=== PATIENT | female | born 1950 | race Hispanic/Latino ===

== ENCOUNTER 2016-09-11 15:33 | Inpatient (IN) | payer OTHER ==
[~2016-09-11] VITALS: Ht 165.1 cm; Wt 110.2 kg
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
--- NOTE | 2016-09-11 16:07 | NUR ---
MED STUDENT AT BEDSIDE FOR EVAL
--- NOTE | 2016-09-11 16:44 | NUR ---
URINE TRIO SENT TO LAB
--- NOTE | 2016-09-11 16:50 | ED PSYCHIATRIC COMPLAINT ---
History of Present Illness General Chief Complaint: Psychiatric Related Complaint Stated Complaint: SI Source: patient, old records Exam Limitations: no limitations Vital Signs & Intake/Output Vital Signs & Intake/Output Vital Signs Date Time Temp Pulse Resp B/P Pulse O2 O2 Flow FiO2 Ox Delivery Rate 09/11 1848 98.6 89 148/90 99 09/11 1724 Room Air 09/11 1556 96.6 72 16 150/90 93 Room Air Triage Note: PT SENT FROM PSYCHIATRIST'S OFFICE FOR SI. PT DENIES PLAN BUT REPORTS THOUGHTS. PT LOST 2 SONS IN 6 MONTH SPAN AND IS MOURNING. PT DENIES HI Triage Nurses Notes Reviewed? yes Onset: Just prior to arrival Duration: week(s):, constant, continues in ED Timing: recent history Severity: severe Associated Symptoms: impaired concentration, insomnia, suicidal ideation LMP (ages 10-50): post menopausal : No Patient currently breastfeeds: No HPI: Patient referred by outpatient clinician for hallucination of seeing children in her home and thoughts of wanting to harm herself. She denies fever chills nausea vomiting diarrhea abdominal pain chest pain shortness breath headache dysuria rash bleeding homicidal ideation. Past History Travel History Traveled to [place] past 21 day No Medical History Any Pertinent Medical History? see below for history Respiratory: asthma Endocrine: diabetes Surgical History Surgical History: non-contributory Psychosocial History What is your primary language Canadian Tobacco Use: Current Not Daily Family History Hx Contributory? No Review of Systems Review of Systems Constitutional: Reports: no symptoms. EENTM: Reports: no symptoms. Respiratory: Reports: no symptoms. Cardiovascular: Reports: no symptoms. GI: Reports: no symptoms. Genitourinary: Reports: no symptoms. Musculoskeletal: Reports: no symptoms. Skin: Reports: no symptoms. Neurological/Psychological: Reports: see HPI, confusion, depressed, emotional problems. Hematologic/Endocrine: Reports: no symptoms. Immunologic/Allergic: Reports: no symptoms. All Other Systems: Reviewed and Negative Physical Exam Physical Exam General Appearance: well developed/nourished, alert, awake, anxious, mild distress Head: atraumatic, normal appearance Eyes: Bilateral: normal appearance, PERRL, EOMI. Ears, Nose, Throat: normal pharynx, normal ENT inspection, hearing grossly normal Neck: normal inspection, supple Respiratory: normal breath sounds Cardiovascular: irregularly irregular, norml femoral pulses equa Gastrointestinal: soft, non-tender Extremities: normal range of motion Neurological/Psychiatric: no motor/sensory deficits, awake, alert, anxious, shower room attendant II-XII nml as tested, depressed affect, oriented x 3 Appearance/Memory/Insight: impaired insight Behavoir/Eye Contact/Speech: cooperative, normal speech Thoughts/Hallucinations: visual hallucinations Skin: intact, normal color, warm/dry SAD PERSONS SAD PERSONS Response Value Age <19 or >45 years? yes 1 Depression/Hopelessness? yes 2 Previous Attempts/Psych Care yes 1 Rational Thinking Loss? yes 2 Social Support? has support 0 Stated Future Intent? yes 2 Total 8 SAD PERSONS Done? yes Progress Differential Diagnosis: drug intoxication, drug overdose, drug withdrawal, electrolyte abnormality, hypoglycemia Plan of Care: Orders Procedure Date/time Status Regular Diet 09/12 B Active Admit to inpatient psych 09/11 1904 Active PROTHROMBIN TIME 09/11 1719 Active Continuous Observation Monitor 09/11 1637 Active URINE DRUG SCREEN FOR ER ONLY 09/11 1637 Complete ETHANOL 09/11 1637 Complete COMPREHENSIVE METABOLIC PANEL 09/11 1637 Complete CBC WITHOUT DIFFERENTIAL 09/11 1637 Complete ED CRISIS PSYCH CONSULT 09/11 1637 Active Laboratory Tests 09/11/16 1644: Anion Gap 14, Estimated GFR 45 L, BUN/Creatinine Ratio 18.3, Glucose 226 H, Calcium 9.1, Total Bilirubin 0.7, AST 20, ALT 29, Alkaline Phosphatase 66, Total Protein 7.1, Albumin 4.1, Globulin 3.0, Albumin/Globulin Ratio 1.4, CBC w Diff NO MAN DIFF REQ, RBC 4.34, MCV 84.9, MCH 28.5, RDW 15.0 H, MPV 9.1, Gran % 49.5 , Lymphocytes % 39.0, Monocytes % 7.9, Eosinophils % 2.7, Basophils % 0.9, Absolute Granulocytes 4.3, Absolute Lymphocytes 3.4, Absolute Monocytes 0.7 H, Absolute Eosinophils 0.2, Absolute Basophils 0.1, PUBS MCHC 33.5, Serum Alcohol < 10.0 09/11/16 1641: Urine Opiates Screen 714.00, Methadone Screen 96, Barbiturate Screen < 60, Ur Phencyclidine Scrn < 6.00, Amphetamines Screen < 100, U Benzodiazepines Scrn > 800 H, Urine Cocaine Screen < 50, Urine Cannabis Screen < 5.00 Departure Departure Time of Disposition: 1917 Disposition: STILL A PATIENT Condition: Stable Clinical Impression Primary Impression: Depression, major, recurrent, severe with psychosis Referrals: BROOKLYNN WALLACE (PCP/Family) Departure Forms: Customer Survey General Discharge Information Psych Admission Note Psychiatric Admission: I have seen and evaluated JAYESH DELATORRE. I have also reviewed all the pertinent lab results and diagnostic results. JAYESH DELATORRE will be admitted to our inpatient Psychiatric unit for treatment and care.
--- NOTE | 2016-09-11 16:52 | NUR ---
LABS SENT (SST, LAV)
[2016-09-11 16:54] LABS: ABSOLUTE BASOPHIL COUNT 0.1 /CUMM (0.0-0.2); ABSOLUTE EOSINOPHIL COUNT 0.2 /CUMM (0.0-0.7); ABSOLUTE GRANULOCYTE CT 4.3 /CUMM (1.4-6.5); ABSOLUTE LYMPH COUNT 3.4 /CUMM (1.2-3.4); ABSOLUTE MONOCYTE COUNT 0.7 /CUMM (0.10-0.60); BASOPHIL % 0.9 % (0.0-2.0); EOSINOPHIL % 2.7 % (0-5); GRANULOCYTE % 49.5 % (42.2-75.2); HEMATOCRIT 36.8 % (37-47); MEAN CORPUSCULAR HGB 28.5 PG (27.0-31.0); MEAN CORPUSCULAR HGB CONC 33.5 G/DL (33.0-37.0); MEAN CORPUSCULAR VOLUME 84.9 FL (81.0-99.0); MEAN PLATELET VOLUME 9.1 FL (7.4-10.4); PLATELET COUNT 250 /CUMM (130-400); RED BLOOD CELL CT 4.34 /CUMM (4.20-5.40); WHITE BLOOD CELL COUNT 8.7 /CUMM (4.8-10.8)
--- NOTE | 2016-09-11 17:09 | NUR ---
1 MEDICATIONS BAG TO PHARMACY
--- NOTE | 2016-09-11 17:15 | NUR ---
PT MOVED FROM BOSE E TO ROOM 13
--- NOTE | 2016-09-11 17:27 | NUR ---
PT HAS 1 VALUABLE BAG IN [facility]
--- NOTE | 2016-09-11 18:30 | NUR ---
CRISIS AT BEDSIDE FOR EVAL
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
[2016-09-11] MEDS ORDERED: GLUCOTROL XL5 M1 PO (19:39)
[2016-09-11] MEDS ORDERED: LYRICA75 M1 PO (19:39)
[2016-09-11] MEDS ORDERED: DILTIAZEM 24HR240 MG PO (19:39)
[2016-09-11] MEDS ORDERED: ADVAIR 500-501 EACH INH (19:40)
[2016-09-11] MEDS ORDERED: LINZESS145 MC1 PO (19:40)
[2016-09-11] MEDS ORDERED: LISINOPRIL2.5 M1 PO (19:40)
[2016-09-11] MEDS ORDERED: PROAIR HFA8.5 GM INH (19:40)
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
[2016-09-11] MEDS ORDERED: LEXAPRO20 M1 PO (19:41)
[2016-09-11] MEDS ORDERED: FOSAMAX70 M1 PO (19:41)
[2016-09-11] MEDS ORDERED: ZOCOR20 M1 PO (19:41)
[2016-09-11] MEDS ORDERED: VITAMIN D250000 UNIT PO (19:41)
--- NOTE | 2016-09-11 19:41 | NUR ---
BLUE TOP SENT TO LAB FOR TESTING
[2016-09-11] MEDS ORDERED: SINGULAIR10 M1 PO (19:42)
[2016-09-11] MEDS ORDERED: PREDNISONE20 M1 PO (19:42)
[2016-09-11] MEDS ORDERED: LASIX40 M1 PO (19:42)
[2016-09-11] MEDS ORDERED: COUMADIN2 M1 PO (19:42)
[2016-09-11] MEDS ORDERED: PROTONIX40 M3 PO (19:43)
[2016-09-11] MEDS ORDERED: SYNTHROID50 MCG PO (19:43)
[2016-09-11] MEDS ORDERED: ALBUTEROL2.5 MG/0.5 INH/SOL (19:44)
[2016-09-11] MEDS ORDERED: XANAX2 M1 PO (19:44)
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
[2016-09-11] MEDS ORDERED: OXYCONTIN20 M1 PO (19:45)
[2016-09-11] MEDS ORDERED: RISPERDAL0.25 M1 PO (19:45)
[2016-09-11] MEDS ORDERED: NOVOLOG FL100 UNIT/1 SQ (19:45)
[2016-09-11] MEDS ORDERED: FEOSOL45 M1 PO (19:46)
[2016-09-11] MEDS ORDERED: LANTUS SOL100 UNIT/1 SC (19:46)
[2016-09-11] MEDS ORDERED: SYNTHROID200 MCG PO (19:47)
[2016-09-11] MEDS ORDERED: OXYCODONE HCL5 M1 PO (19:47)
[2016-09-11 19:51] LABS: PT 17.7 SEC (9.4-12.5)
--- NOTE | 2016-09-11 23:56 | History & Physical ---
General Information and HPI MD Statement: I have seen and personally examined JAYESH DELATORRE and documented this H&P. The patient is a 65 year old F who presented with a patient stated chief complaint of [medical management]. Source of Information: patient Exam Limitations: no limitations History of Present Illness: Chief complaint: depression and suicidal ideation 65-year-old female with PMHx off HTN, DM on insulin, asthma on prednisone, hypothyroidism, anxiety/depression, A. fib, osteoporosis was sent from psychiatrist office for suicidal ideation, hallucinations(patient seeing her children). Patient lost her 3 young sons recently with various causes. She feels hopeless about whole situation. While evaluating medical problems and medications, patient stated that this is all futile, she did not want to outlive my children. Patient is on warfarin for A. fib, 2 weeks back her INR was more than 3 so the dose of warfarin was titrated. Earlier she used to take 2 mg warfarin 4 times a week and 4 mg warfarin 3 times a week, which was changed to 2 mg warfarin 5 times a week and 4 mg warfarin 2 times a week. Her blood pressure had been controlled at home and at frequent doctor's visit. For diabetes, she takes 15 units Lantus in morning and 10 units Lantus in the evening, 6 units aspart insulin pre-meal, checks blood sugar with every meal. She states that lately her blood sugar had been in 300s, when she is feeling stressed and anxious. Her asthma is prednisone dependent, if she did does not take prednisone she ends up in hospital. Compliant with her inhalers. She had history of lung collapse 25 years back, she was in coma for 2 weeks according to her. Then again she starts crying mentioning that why she didn't at that time, why did she had to see of her own children. She follows up with bowl topper, trolley operator, lens grinding machine operator and her PCP. PCP manages her warfarin. Patient denies any SOB, chest pain, palpitations, cough or expectoration, nausea , diarrhea, headaches, dizziness, urinary symptoms. She gets leg swellings on and off, her recent visit with bowl topper was 4 days back, she states that she was never given a diagnosis of CHF. Allergies/Medications Allergies: Coded Allergies: amoxicillin (From AUGMENTIN) (Severe, throat chocking 09/12/16) clavulanic acid (From AUGMENTIN) (Severe, throat chocking 09/12/16) Home Med list Albuterol Sulfate (Proair Hfa) 90 MCG HFA.AER.AD 2 PUF INH Q4-6 PRN PRN ASTHMA (Reported) Albuterol Sulfate 2.5 MG/0.5 ML VIAL.NEB 1 Vial INH/NISH Q4 PRN ASTHMA ( Reported) Alendronate Sodium (Fosamax) 70 MG TABLET 1 TAB PO QW OSTEOPOROSIS (Reported) in the morning, at least 30 minutes before the first food, beverage, or medication of the day Alprazolam (Xanax) 2 MG TABLET 1 TAB PO QIDPRN ANXIETY (Reported) Diltiazem HCl (Diltiazem 24HR ER) 240 MG CAP.ER.24H 1 CAP PO DAILY CARDIAC ( Reported) Ergocalciferol (Vitamin D2) (Vitamin D2) 50,000 UNIT CAPSULE 1 CAP PO QW SUPPLEMENT (Reported) Escitalopram Oxalate (Lexapro) 20 MG TABLET 1 TAB PO DAILY MENTAL HEALTH ( Reported) Fluticasone/Salmeterol (Advair 500-50 Diskus) 500 MCG-50 MCG/DOSE BLST.W.DEV 1 PUF INH BID ASTHMA (Reported) Furosemide (Lasix) 40 MG TABLET 1 TAB PO DAILY CARDIAC (Reported) Glipizide (Glucotrol XL) 5 MG TAB.ER.24 1 TAB PO BID DIABETES (Reported) Insulin Aspart, Recombinant (Novolog Flexpen) 100 UNIT/ML INSULN.PEN 6 UNITS SQ QAC DIABETES (Reported) Insulin Glargine,Hum.rec.anlog (Lantus Solostar) 100 UNIT/ML (3 ML) INSULN.PEN 15 UNIT SC DAILY DIABETES (Reported) Iron,Carbonyl (Feosol) (Unknown Strength) TABLET (Unknown Dose) DAILY SUPPLEMENT (Reported) Levothyroxine Sodium (Synthroid) 200 MCG TABLET 250 MG PO DAILY THYROID ( Reported) Linaclotide (Linzess) 145 MCG CAPSULE 1 CAP PO DAILY CONSTIPATION (Reported) Lisinopril 5 MG TABLET 1 TAB PO DAILY CARDIAC (Reported) Montelukast Sodium (Singulair) 10 MG TABLET 1 TAB PO DAILY ASTHMA (Reported) Oxycodone HCl 5 MG TABLET 20 MG PO Q6H PAIN (Reported) Pantoprazole Sodium (Protonix) 40 MG TABLET.DR 1 TAB PO DAILY STOMACH ( Reported) Prednisone 5 MG TABLET 15 MG PO DAILY ASTHMA (Reported) Pregabalin (Lyrica) 75 MG CAPSULE 1 CAP PO TID PAIN (Reported) Risperidone (Risperdal) (Unknown Strength) TABLET (Unknown Dose) PO QPM SLEEP (Reported) Simvastatin (Zocor*) 20 MG TABLET 1 TAB PO QPM HPL (Reported) Warfarin Sodium (Coumadin) 2 MG TABLET 1 TAB PO DAILY CARDIAC (Reported) Compliance With Home Meds: GOOD Past History Travel History Traveled to [place] past 21 day No Medical History Neurological: NONE EENT: NONE, allergies Cardiovascular: AFIB Respiratory: asthma Gastrointestinal: constipation, GERD Hepatic: NONE Renal: NONE, chronic kidney disease Musculoskeletal: chronic back pain, osteoporosis Psychiatric: anxiety, depression Endocrine: diabetes, hypothyroidism Blood Disorders: anemia Cancer(s): NONE SUMMER 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 Home Smoking Status: Smoker Current Stat [facility] ETOH Use: denies use Illicit Drug Use: denies illicit drug use Living Will? unknown Power of Residential Building Inspector/HCP? unknown Functional Ability ADLs Independent: dressing, eating, toileting, bathing. Ambulation: independent IADLs Independent: shopping, housework, finances, food prep, telephone, transportation , medication admin. Review of Systems Review of Systems Constitutional: Reports: no symptoms. EENTM: Reports: no symptoms. Cardiovascular: Reports: no symptoms. Respiratory: Reports: no symptoms. GI: Reports: no symptoms, constipation. Genitourinary: Reports: no symptoms. Musculoskeletal: Reports: joint pain. Skin: Reports: no symptoms. Neurological/Psychological: Reports: depressed. Hematologic/Endocrine: Reports: no symptoms. Immunologic/Allergic: Reports: no symptoms. All Other Systems: Reviewed and Negative Exam & Diagnostic Data Last 24 Hrs of Vital Signs/I&O Vital Signs Date Time Temp Pulse Resp B/P Pulse O2 O2 Flow FiO2 Ox Delivery Rate 09/11 2018 96.8 92 16 154/84 94 Room Air 01/24 1925 Room Air 09/11 1848 98.6 89 148/90 99 09/11 1724 Room Air 09/11 1556 96.6 72 16 150/90 93 Room Air Intake & Output 09/11 1600 09/12 0000 09/12 0800 Intake Total Output Total Balance Patient 110.223 kg Weight Physical Exam General Appearance Alert, Oriented X3, Cooperative, No Acute Distress Skin No Rashes, No Breakdown, No Significant Lesion HEENT Atraumatic, PERRLA, EOMI, Mucous Membr. moist/pink Neck Supple, No JVD, No thryomegaly, +2 Carotid Pulse wo Bruit Lymphatic Cervical nl Cardiovascular Normal S1, Normal S2, No Murmurs Lungs Clear to Auscultation, Normal Air Movement Abdomen Normal Bowel Sounds, Soft, No Tenderness, No Hepatospenomegaly Neurological Exam Findings: Normal Speech, Strength at 5/5 X4 Ext, Normal Tone, Sensation Intact, Cranial Nerves 3-12 NL, Reflexes 2+ Cranial Nerves II through XII: Intact, no deficit Extremities No Clubbing, No Cyanosis, No Edema, Normal Pulses, No Tenderness/ Swelling Vascular Normal Pulses, Pulses Symmetrical Last 24 Hrs of Labs/[place]: Laboratory Tests 09/11/16 193: PT 17.7 H, INR 1.69 H 09/11/161643: Anion Gap 14, Estimated GFR 45 L, BUN/Creatinine Ratio 18.3, Glucose 226 H, Calcium 9.1, Total Bilirubin 0.7, AST 20, ALT 29, Alkaline Phosphatase 66, Total Protein 7.1, Albumin 4.1, Globulin 3.0, Albumin/Globulin Ratio 1.4, TSH 0.112 L , CBC w Diff NO MAN DIFF REQ, RBC 4.34, MCV 84.9, MCH 28.5, RDW 15.0 H, MPV 9.1 , Gran % 49.5, Lymphocytes % 39.0, Monocytes % 7.9, Eosinophils % 2.7, Basophils % 0.9, Absolute Granulocytes 4.3, Absolute Lymphocytes 3.4, Absolute Monocytes 0.7 H, Absolute Eosinophils 0.2, Absolute Basophils 0.1, PUBS MCHC 33.5, Serum Alcohol < 10.0 09/11/16 164: Urine Opiates Screen 714.00, Methadone Screen 96, Barbiturate Screen < 60, Ur Phencyclidine Scrn < 6.00, Amphetamines Screen < 100, U Benzodiazepines Scrn > 800 H, Urine Cocaine Screen < 50, Urine Cannabis Screen < 5.00 Assessment/Plan Assessment: #1 depression and suicidal ideation: Agree with psychiatrist plan #2 DM: Insulin-dependent, patient takes Lantus 15 units in a.m. 10 units in p.m. , 6 units aspart before meals and glipizide 5 mg by mouth twice a day. Patient was in ER for the whole day, did not eat anything, blood sugar 125 at 11 PM, decreased the dose nighttime Lantus to 5 units for tonight, hold glipizide for tonight. Accu-Cheks and sliding scale short-acting insulin, low-dose before meals and at bedtime. Consult endocrinology tomorrow. Diabetic diet. #3 history of hypothyroidism: TSH is in fact low 0.112, patient on 250 g levothyroxine, resume at 200 g tomorrow morning, repeat TSH, T3-T4 in a.m., consult endocrinology in a.m. #4 HTN: Continue lisinopril 5 mg by mouth daily #5 asthma: Steroid dependent, continue prednisone 15 mg by mouth daily, continue Symbicort 1 puff twice a day, continue Singulair, continue when necessary albuterol nebulization treatment if patient is short of breath. #6 A. fib: EKG was not ordered in ER, await EKG, Continue diltiazem 240 mg extended-release daily, INR subtherapeutic, warfarin 4 mg today, check INR in a.m., will follow to dose warfarin. Earlier she used to take 2 mg warfarin 4 times a week and 4 mg warfarin 3 times a week, which was changed to 2 mg warfarin 5 times a week and 4 mg warfarin 2 times a week, after her INR being high, We will have to resume previous dosing. #7 osteoporosis: Continue weekly alendronate #8 Creatinine is mildly elevated, baseline not known, BEP in AM. We will follow along As Ranked By This Provider Problem List: 1. Diabetes 2. HTN (hypertension) 3. Afib 4. Asthma 5. Subtherapeutic international normalized ratio (INR) 6. Hypothyroidism Miscellaneous Miscellaneous Documentation Attending Case Discussed With: EDY KHAN MD Primary Care Physician: BROOKLYNN WALLACE Patient sees these Specialists Dr. Reyes Arroyo MD for Cardiology ([place]) Marlene Willard MD for Endocrinology ([place]) Roscoe Thakkar MD for Pulmonology ([place]) Level of Patient Care: BRUNO [place] Consults Needed: Consulting Specialty: Endocrinology Consulting Physician: trauma manager Reason for Consult: Low TSH, currently on high doses of levothyroxin
--- NOTE | 2016-09-12 03:03 | Admission Certification ---
Admission Certification Certification Statement - As attending physician, I certify that at the time of - admission, based on clinical presentation, severity of - symptoms, need for further diagnostic testing and - therapeutic interventions, and risk of adverse outcomes - without in-hospital treatment, in my clinical assessment, - this patient requires an acute hospital stay for a minimum - of two nights or longer. I have also considered psychsocial - factors such as support system, advanced age, financial - issues, cognitive issues, and failed out-patient treatments, - past re-admission history, safety of patient, and lack of - compliance as applicable. Specific rationale supporting this admission is: depression, suicidal ideation
--- NOTE | 2016-09-12 04:41 | NUR ---
DIFFICULT NIGHT FOR SLEEP MEDICATED WITH XANAX AND ROXICODONE. NOT COMFORTABLE IN THOSES BEDS.
[2016-09-12 08:08] VITALS: BP 96/50
--- NOTE | 2016-09-12 08:58 | Cons- Endocrinology ---
General Information and HPI Consulting Request Date of Consult: 09/12/16 Requested By: Psych team Reason for Consult: management of diabetes and hypothyroidism. Source of Information: patient, old records Exam Limitations: no limitations History of Present Illness: 65-year-old female with PMHx off HTN, DM on insulin, asthma on prednisone, hypothyroidism, anxiety/depression, atrial fibrillation and osteoporosis, was admitted for major depression, suicidal ideation and hallucinations. As per patient, she has hypothyroidism for years and was on Levothyroxine 250 mcg daily in the past. In the hospital, she was put on Levothyroxine 200 mcg daily. On admission, her TSH was 0.112. With regards to DM, she was on Levemir 15 units am and 10 units at bedtime, glipizide 5 mg twice a day and Novolog 6 units before meals. In hospital, she was put on Levemir 15 units am, 5 units at bedtime and Novolog coverage before meals. Her FSG was 201 this morning. Allergies/Medications Allergies: Coded Allergies: amoxicillin (From AUGMENTIN) (Severe, throat chocking 09/12/16) clavulanic acid (From AUGMENTIN) (Severe, throat chocking 09/12/16) Home Med List: Albuterol Sulfate (Proair Hfa) 90 MCG HFA.AER.AD 2 PUF INH Q4-6 PRN PRN ASTHMA (Reported) Albuterol Sulfate 2.5 MG/0.5 ML VIAL.NEB 1 Vial INH/NISH Q4 PRN ASTHMA ( Reported) Alendronate Sodium (Fosamax) 70 MG TABLET 1 TAB PO QW OSTEOPOROSIS (Reported) in the morning, at least 30 minutes before the first food, beverage, or medication of the day Alprazolam (Xanax) 2 MG TABLET 1 TAB PO QIDPRN ANXIETY (Reported) Diltiazem HCl (Diltiazem 24HR ER) 240 MG CAP.ER.24H 1 CAP PO DAILY CARDIAC ( Reported) Ergocalciferol (Vitamin D2) (Vitamin D2) 50,000 UNIT CAPSULE 1 CAP PO QW SUPPLEMENT (Reported) Escitalopram Oxalate (Lexapro) 20 MG TABLET 1 TAB PO DAILY MENTAL HEALTH ( Reported) Fluticasone/Salmeterol (Advair 500-50 Diskus) 500 MCG-50 MCG/DOSE BLST.W.DEV 1 PUF INH BID ASTHMA (Reported) Furosemide (Lasix) 40 MG TABLET 1 TAB PO DAILY CARDIAC (Reported) Glipizide (Glucotrol XL) 5 MG TAB.ER.24 1 TAB PO BID DIABETES (Reported) Insulin Aspart, Recombinant (Novolog Flexpen) 100 UNIT/ML INSULN.PEN 6 UNITS SQ QAC DIABETES (Reported) Insulin Glargine,Hum.rec.anlog (Lantus Solostar) 100 UNIT/ML (3 ML) INSULN.PEN 15 UNIT SC DAILY DIABETES (Reported) Iron,Carbonyl (Feosol) (Unknown Strength) TABLET (Unknown Dose) DAILY SUPPLEMENT (Reported) Levothyroxine Sodium (Synthroid) 200 MCG TABLET 250 MG PO DAILY THYROID ( Reported) Linaclotide (Linzess) 145 MCG CAPSULE 1 CAP PO DAILY CONSTIPATION (Reported) Lisinopril 5 MG TABLET 1 TAB PO DAILY CARDIAC (Reported) Montelukast Sodium (Singulair) 10 MG TABLET 1 TAB PO DAILY ASTHMA (Reported) Oxycodone HCl 5 MG TABLET 20 MG PO Q6H PAIN (Reported) Pantoprazole Sodium (Protonix) 40 MG TABLET.DR 1 TAB PO DAILY STOMACH ( Reported) Prednisone 5 MG TABLET 15 MG PO DAILY ASTHMA (Reported) Pregabalin (Lyrica) 75 MG CAPSULE 1 CAP PO TID PAIN (Reported) Risperidone (Risperdal) (Unknown Strength) TABLET (Unknown Dose) PO QPM SLEEP (Reported) Simvastatin (Zocor*) 20 MG TABLET 1 TAB PO QPM HPL (Reported) Warfarin Sodium (Coumadin) 2 MG TABLET 1 TAB PO DAILY CARDIAC (Reported) Review of Systems Review of Systems Constitutional: Reports: see HPI. 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 Home Smoking Status: Smoker Current Stat Ukn ETOH Use: denies use Illicit Drug Use: denies illicit drug use Living Will? 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 unknown Functional Ability ADLs Independent: dressing, eating, toileting, bathing. Ambulation: independent IADLs Independent: shopping, housework, finances, food prep, telephone, transportation , medication admin. Exam & Diagnostic Data Last 24 Hrs of Vital Signs/I&O Vital Signs Date Time Temp Pulse Resp B/P Pulse O2 O2 Flow FiO2 Ox Delivery Rate 09/12 08 96.4 92 96/50 09/11 2018 96.8 92 16 154/84 94 Room Air 09/11 1925 Room Air 09/11 1848 98.6 89 148/90 99 09/11 1724 Room Air 09/11 1556 96.6 72 16 150/90 93 Room Air Intake & Output 09/12 1600 09/12 0800 09/12 0000 Intake Total Output Total Balance Patient 243 lb Weight Physical Exam General Appearance: no apparent distress Neck: normal inspection Respiratory: lungs clear Cardiovascular: regular rate/rhythm Gastrointestinal: soft, non-tender Extremities: no edema Labs/Gerson Results: Laboratory Tests 09/12 09/11 0616 1939 Chemistry Sodium (137 - 145 mmol/L) 140 Potassium (3.5 - 5.1 mmol/L) 3.7 Chloride (98 - 107 mmol/L) 100 Carbon Dioxide (22 - 30 mmol/L) 32 H Anion Gap (5 - 16) 8 BUN (7 - 17 mg/dL) 22 H Creatinine (0.5 - 1.0 mg/dL) 1.0 Estimated GFR (>60 ml/min) 56 L BUN/Creatinine Ratio (7 - 25 %) 22.0 Free T4 (0.78 - 2.44 ng/dL) 1.54 Total T3 (0.97 - 1.69 ng/mL) Pending TSH &T3 &Free T4 Intrp (0.270 - 4.20 uIU/mL) 0.183 L Coagulation PT (9.4 - 12.5 SEC) 17.7 H INR (0.90 - 1.19) 1.69 H 09/11 09/11 1644 1641 Chemistry Sodium (137 - 145 mmol/L) 139 Potassium (3.5 - 5.1 mmol/L) 3.8 Chloride (98 - 107 mmol/L) 98 Carbon Dioxide (22 - 30 mmol/L) 27 Anion Gap (5 - 16) 14 BUN (7 - 17 mg/dL) 22 H Creatinine (0.5 - 1.0 mg/dL) 1.2 H Estimated GFR (>60 ml/min) 45 L BUN/Creatinine Ratio (7 - 25 %) 18.3 Glucose (65 - 99 mg/dL) 226 H Calcium (8.4 - 10.2 mg/dL) 9.1 Total Bilirubin (0.2 - 1.3 mg/dL) 0.7 AST (14 - 36 U/L) 20 ALT (9 - 52 U/L) 29 Alkaline Phosphatase (<127 U/L) 66 Total Protein (6.3 - 8.2 g/dL) 7.1 Albumin (3.5 - 5.0 g/dL) 4.1 Globulin (1.9 - 4.2 gm/dL) 3.0 Albumin/Globulin Ratio (1.1 - 2.2 %) 1.4 TSH (0.270 - 4.200 uIU/mL) 0.112 L Hematology CBC w Diff NO MAN DIFF REQ WBC (4.8 - 10.8 /CUMM) 8.7 RBC (4.20 - 5.40 /CUMM) 4.34 Hgb (12.0 - 16.0 G/DL) 12.3 Hct (37 - 47 %) 36.8 L MCV (81.0 - 99.0 FL) 84.9 MCH (27.0 - 31.0 PG) 28.5 RDW (11.5 - 14.5 %) 15.0 H Plt Count (130 - 400 /CUMM) 250 MPV (7.4 - 10.4 FL) 9.1 Gran % (42.2 - 75.2 %) 49.5 Lymphocytes % (20.5 - 51.1 %) 39.0 Monocytes % (1.7 - 9.3 %) 7.9 Eosinophils % (0 - 5 %) 2.7 Basophils % (0.0 - 2.0 %) 0.9 Absolute Granulocytes (1.4 - 6.5 /CUMM) 4.3 Absolute Lymphocytes (1.2 - 3.4 /CUMM) 3.4 Absolute Monocytes (0.10 - 0.60 /CUMM) 0.7 H Absolute Eosinophils (0.0 - 0.7 /CUMM) 0.2 Absolute Basophils (0.0 - 0.2 /CUMM) 0.1 PUBS MCHC (33.0 - 37.0 G/DL) 33.5 Toxicology Urine Opiates Screen (>2000 NG/ML) 714.00 Methadone Screen (>300 NG/ML) 96 Barbiturate Screen (>200 NG/ML) < 60 Ur Phencyclidine Scrn (>25 NG/ML) < 6.00 Amphetamines Screen (>1000 NG/ML) < 100 U Benzodiazepines Scrn (>200 NG/ML) > 800 H Urine Cocaine Screen (>300 NG/ML) < 50 Urine Cannabis Screen (>50 NG/ML) < 5.00 Serum Alcohol (<10 MG/DL) < 10.0 Assessment/Plan Assessment/Plan 65-year-old female with PMHx off HTN, DM on insulin, asthma on prednisone, hypothyroidism, anxiety/depression, atrial fibrillation and osteoporosis, was admitted for major depression, suicidal ideation and hallucinations. 1. hypothyroidism: ---TSH is improving and free T4 is in the normal range; ---she will continue taking Levothyroxine 200 mcg daily for now; ---I will monitor her TSH and free T4 on 09/14/2016. 2. DM: ---Patient currently is on prednisone 15 mg daily because of asthma; ---I adjusted Levemir to 15 units am and 10 units at bedtime; ---I adjusted Novolog coverage before meals and added on Novolog coverage at bedtime---detail see the inpatient DM orders; ---hold off on Glipizide for today; ---monitor FSGs. will follow Inpatient Diabetes Orders Before Each Meal: Bolus Insulin: Novolog < 80 mg/dl: no coverage 80-100 mg/dl: 4 units 101-120 mg/dl: 4 units 121-150 mg/dl: 4 units 151-200 mg/dl: 6 units 201-250 mg/dl: 8 units 251-300 mg/dl: 10 units 301-350 mg/dl: 12 units 351-400 mg/dl: 14 units > 400 mg/dl: 16 units Bedtime: Bolus Insulin: Novolog < 80 mg/dl: no coverage 80-100 mg/dl: no coverage 101-120 mg/dl: no coverage 121-150 mg/dl: no coverage 151-200 mg/dl: no coverage 201-250 mg/dl: no coverage 251-300 mg/dl: 2 units 301-350 mg/dl: 3 units 351-400 mg/dl: 4 units > 400 mg/dl: 5 units Consult Acknowledgment - Thank you for your consult request.
[2016-09-12 10:15] LABS: PT 16.2 SEC (9.4-12.5)
--- NOTE | 2016-09-12 12:00 | NUR ---
Pt has been isolating in room often but did attend a couple groups today, reported poor sleep and chronic pain. Met with Dr. Alaniz today for endocrine consult, is pleasant and cooperative and reports motivation for help, is tearful especially when discussing numerous loses in life yet behavior is congruent with situation and appropriate.
[2016-09-12 12:21] VITALS: BP 101/64
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
[2016-09-12 16:00] VITALS: BP 99/54
--- NOTE | 2016-09-12 16:21 | SOCIAL WORKER TX PLAN PSYCH ---
Treatment Plan - Please Document: - Evidence that there is ongoing collaboration between - the patient and the interdisciplinary team, - including the patient's active participation and - responsibility for engaging in the treatment regimen, - and that the treatment plan is individualized and - relevant to the patient's conditions. - Treatment plan should reflect documentation indicating - that all active therapeutic efforts are included. Strengths/Capabilities: Able to ask for help, supportive family Patient Identified Trmt Goals: " I want to feel better and not be so sad." Discharge Plan: IOP Problem/Goals #1 Problem #1: suicidal ideation Goal (Short Term): Today I will attend 2 groups Today I will identify 2 stressors Today I will identify 2 positive supports Today I will work on recognizing 3 emotions I am feeling Goal (Fpc): Be free of suicidal thoughts/attempts Develop 3 coping skills to deal with depression Identify 3 positive support systems to call in crisis Develop a crisis plan with 3 gillespie people Identify 2 positive traits per week about myself Identify 2 things I have to look forward to Identify 2 positive people in my life and 1 thing I appreciate about them Interventions: Learn ways to manage depressive symptoms accordingly and identify positive supports to manage life stressors and mood fluctuations. Modalities: Encourage groups, education on depression, provide CBT treatment, family meeting. DSM5/PS Stressors/Medical Prob Diagnosis' (DSM 5, Stressors, Medical): [place] I: MDD, recurrent, severe F33.2 Medical: Asthma; diabetes Current GAF: 23 Treatment Team - Responsibilities of members of the treatment team include: - Medication Management- MD or DESIGN PROJECT MANAGER - Medication Administration and Monitoring- Nurse - Group Therapy- Occupational Therapist - 1:1 Therapy,Disch Planning,family involvement-Weaving Supervisor
--- NOTE | 2016-09-12 16:23 | SOCIAL WORKER PROG NOTE PSYCH ---
Social Work Progress Note Progress Note Patient reports feeling much better today compared to last evening when she was brought to the hospital. Patient has been attending groups on the unit today and is starting to interact with peers and staff. Patient denies suicidal thoughts at present but does report continuing to feel sad/depressed. Patient reports that she will never forget her sons deaths but it is something she needs to learn to live with. Patient has family meeting scheduled for tomorrow afternoon with her . Patient reports that her has a tendency to be controlling and does not allow her to spend time with friends outside of the house. She reports that he is her only main support though besides her children.
[2016-09-12 20:24] VITALS: BP 113/67
--- NOTE | 2016-09-12 21:50 | NUR ---
PT IS CALM, COOPERATIVE WITH STAFF AND PEERS, AND COMPLIANT WITH UNIT RULES. PT IS IN [place] MOST OF THE TIME, THOUGH MOSTLY STAYING BY SELF. PT WILL INTERACT WHEN ENGAGED, AND HAS A FRIENDLY DEMEANOR. MOOD IS STABLE, AFFECT IS EUTHYMIC, COMMUNICATION IS NORMAL, AND APPETITE IS NORMAL. PT DENIES SI AT THIS TIME.
--- NOTE | 2016-09-12 22:02 | NUR ---
PT BOOLD GLUCOSE AT TIME: 1630 WAS 289, AT 2130 WAS 252
--- NOTE | 2016-09-13 04:16 | NUR ---
PT. SLEPT WELL.
[2016-09-13 07:48] VITALS: BP 130/76
[2016-09-13 08:35] LABS: PT 21.8 SEC (9.4-12.5)
--- NOTE | 2016-09-13 08:38 | PN- Diabetes ---
Assessment/Plan Assessment: 65-year-old female with PMHx off HTN, DM on insulin, asthma on prednisone, hypothyroidism, anxiety/depression, atrial fibrillation and osteoporosis, was admitted for major depression, suicidal ideation and hallucinations. With regards to hypothyroidism, she is on Levothyroxine 200 mcg daily. With regards to DM, patient currently is on prednisone 15 mg daily because of asthma, she is on Levemir 15 units am and 10 units at bedtime, Novolog coverage before meals and Novolog coverage at bedtime. Her FSGs were 201, 295, 289, 252 and 111. Plan: 1. Thyroid: continue levothyroxine 200 mcg daiy for now; monitor TFT tomorrow. 2. DM: continue the current insulin regimen for now; monitor FSGs; will follow. Subjective Subjective: Her glucose level is better controlled this morning. Objective Last 24 Hrs of Vital Signs/I&O Vital Signs Date Time Temp Pulse Resp B/P Pulse O2 O2 Flow FiO2 Ox Delivery Rate 09/13 0748 96.3 85 130/76 09/12 2024 96.7 90 113/67 09/12 1600 84 99/54 09/12 1221 78 101/64 09/12 0955 92 96/50 Findings Pertinent Lab/Gerson Results: Laboratory Tests 09/13 09/12 0646 0952 Coagulation PT (9.4 - 12.5 SEC) Pending 16.2 H INR (0.90 - 1.19) Pending 1.55 H
[2016-09-13 12:38] VITALS: BP 111/69
--- NOTE | 2016-09-13 14:09 | NUR ---
Pt was visible in the miliey today. She came to planning meeting and brought up that she is feeling very drowsy. Pt's goal was to "talk to the sales intern about medication concerns, and to adjust to the milieu". Regardless to feeling so tired, pt did stay out in the milieu participating in groups, and interacting with her peers. Pt has been cooperative with staff, and denies thoughts of harming herself when asked.
--- NOTE | 2016-09-13 16:12 | CP SOUTH PROGRESS NOTE PSYCH ---
Psych (Inpt) Progress Note Progress Note Progress Note: I discussed this patient's progress to date, current mental status, treatment process in the context of the treatment plan, and discharge planning with staff/ team in the daily morning inpatient team meeting. I also met with the patient myself in individual session. SUBJECTIVE: "It's peaceful here. I don't feel suicidal. I don't see shadows and hear voices. I only feel and see those things in the house." OBJECTIVE: Current Medications Sig/Pierce Start time Last Medication Dose Route Stop Time Status Admin Albuterol Sulfate 2 PUF Q4-6 PRN PRN 09/11 2300 AC 09/12 INH 0620 Albuterol Sulfate 3 ML Q4 HRS NEEDED PRN 09/11 2245 AC INH Alendronate Sodium 70 MG Q7D 09/17 0700 AC PO Alprazolam 1 MG Q6PRN PRN 09/11 2300 AC 09/12 PO 09/18 2259 2209 Atorvastatin Calcium 20 MG AT BEDTIME 09/12 2200 AC 09/12 PO 2203 Budesonide/ 1 PUF BID 09/11 2330 AC 09/13 Formoterol Fumarate INH 0856 Diltiazem HCl 240 MG DAILY 09/12 1000 AC 09/13 PO 0855 Diphenhydramine HCl 25 MG AT BEDTIME NEED.. 09/13 1615 UNVr PO Ergocalciferol 50,000 IU Q7D 09/17 1000 AC PO Escitalopram Oxalate 20 MG DAILY 09/12 1000 AC 09/13 PO 0937 Ferrous Sulfate 325 MG DAILY 09/12 1000 AC 09/13 PO 0856 Furosemide 40 MG DAILY 09/12 1000 AC 09/13 PO 0856 Insulin Aspart 0 TIDAC/HS 09/12 1200 AC 09/13 SC 1347 Insulin Detemir 10 UNITS AT BEDTIME 09/12 2200 AC 09/12 SC 2204 Insulin Detemir 15 UNITS DAILY 09/12 1000 AC 09/13 SC 0937 Levothyroxine Sodium 0.2 MG DAILY AC 09/12 0700 AC 09/13 PO 0645 Lisinopril 5 MG DAILY 09/12 1000 AC 09/13 PO 0856 Magnesium Hydroxide 30 ML AT BEDTIME PRN 09/11 2315 AC PO Melatonin 10 MG AT BEDTIME 09/13 2200 UNVr PO Montelukast Sodium 10 MG 2200 09/11 2330 AC 09/12 PO 2203 Omeprazole 40 MG DAILY AC 09/12 0700 AC 09/13 PO 0645 Oxycodone HCl 10 MG Q6-PRN PRN 09/12 2230 AC 09/13 PO 1349 Oxycodone HCl 10 MG .STK-MED ONE 09/12 2203 DC PO 09/12 220 Oxycodone HCl 10 MG Q6-PRN PRN 09/11 2300 DC 09/12 PO 1615 Prednisone 15 MG DAILY 09/12 1000 AC 09/13 PO 0856 Pregabalin 75 MG TID 09/11 2255 AC 09/13 PO 0857 Quetiapine Fumarate 25 MG AT BEDTIME 09/13 2199 UNVr PO Quetiapine Fumarate 50 MG AT BEDTIME 09/12 220 DC 09/12 PO 2203 Warfarin Sodium 4 MG COUMADIN 1700 ONE 09/13 1700 AC PO 09/13 1701 Warfarin Sodium 5 MG COUMADIN 1700 ONE 09/12 1700 DC 09/12 PO 09/12 1701 1721 Laboratory Tests 09/13 0646 Coagulation PT (9.4 - 12.5 SEC) 21.8 H INR (0.90 - 1.19) 2.09 H Vital Signs Date Time Temp Pulse Resp B/P Pulse O2 O2 Flow FiO2 Ox Delivery Rate 09/13 1238 95 111/69 09/13 0856 85 130/76 09/13 0748 96.3 85 130/76 09/12 2023 96.7 90 113/67 ASSESSMENT: Today I met the patient twice, once in the morning, and second time in family meeting along with social worker masters Anamika, and the patient's Demario. She states that 50 mg of Seroquel was too much for her last night, and that she still felt sedated when she woke in the morning. Stating that she does not want to take 50 mg of Seroquel any longer. She continues to be in mourning and grieving after the of her son 2 weeks ago, and she continues to grieve for her other 2 sons, one who 6 months ago , and the other 24 years ago. States that she finds it peaceful here. Depression:5/10; (with 10 the worst.) States that anxiety is intermittent. Denies suicidal ideation, homicidal ideation, auditory hallucinations, visual hallucinations, paranoid ideation. States that she does not feel suicidal here, but did feel suicidal at home. She believes that her home has "bad energy." States that her appetite is good. Speech is well articulated, goal-directed, average in rate, volume and tone. Patient speaks Urdu as a second language. She is pleasant and cooperative. Sad affect which is congruent with mourning for her sons. During the family meeting this afternoon, the patient's common-law , Demario, expressed his support. He was also here last night during visiting hours. Both the patient and her state that after discharge from the hospital, they will stay with their son Jabari at his home, as they do not believe that their own home is a safe or healthy place for them to be at this time. The patient understands the risks/benefits/side effects of the medication and is agreeable to continue taking them. PLAN: Seroquel 25 mg at bedtime, along with melatonin for sleep, and prn Benadryl for insomnia. Continue with other current management as patient is improving. Continue to provide support and encouragement.
[2016-09-13 16:22] VITALS: BP 94/57
--- NOTE | 2016-09-13 16:32 | SOCIAL WORKER PROG NOTE PSYCH ---
Social Work Progress Note Progress Note Patient had family meeting today with this scenario writer, Ananda Bull APRN, and patients , Demario. Patients inquired about patients current treatment in the hospital and how she is responding to medication. Patient reported feeling safe here and overall better. Patient has decided to not return home post hospitalization and plans to stay with one of her sons in [place]. Patients is in agreement with this plan as well. Patient denies SI at present. Patient is in agreement with attending IOP post discharge from the hospital and states that her son will be able to drive her back and forth from [place].
[2016-09-13 20:14] VITALS: BP 92/62
--- NOTE | 2016-09-13 22:38 | NUR ---
Patient blood sugar 63 at 2130, instructed to eat carbs and drink juice. Recheck blood glucose 160. Dr. Monson notified of findings, instructed to hold sliding scale novolog and give levemir. Recheck blood glucose between 0430 and 0500.
--- NOTE | 2016-09-13 23:20 | NUR ---
EVENING NOTE- PT IS PLEASANT, CALM, COOPERATIVE, NO COMPLAINTS, PRESENT IN THE COMMUNITY AND INTERACTING WITH PEERS AND STAFF APPROPRIATELY, MED COMPLIANT, MOOD IS OVERALL STABLE WITH FULL RANGE AFFECT, ABLE TO MAKE NEEDS KNOWN.
--- NOTE | 2016-09-14 04:27 | NUR ---
PT SLEPT WELL WITH NO ISSUES OR COMPLAINTS.
--- NOTE | 2016-09-14 05:04 | NUR ---
PER MD F/U BLOOD SUGAR @ THIS TIME = 169. NO COMPLAINTS.
[2016-09-14 06:40] LABS: PT 26.9 SEC (9.4-12.5)
[2016-09-14 07:37] VITALS: BP 125/68
--- NOTE | 2016-09-14 08:51 | PN- Diabetes ---
Assessment/Plan Assessment: 65-year-old female with PMHx off HTN, DM on insulin, asthma on prednisone, hypothyroidism, anxiety/depression, atrial fibrillation and osteoporosis, was admitted for major depression, suicidal ideation and hallucinations. With regards to hypothyroidism, she is on Levothyroxine 200 mcg daily. Repeat TSH 0.070 and free T4 1.48. With regards to DM, patient currently is on prednisone 15 mg daily because of asthma, she is on Levemir 15 units am and 10 units at bedtime, Novolog coverage before meals and Novolog coverage at bedtime. Her FSGs were 362, 63, 160 and 125. Plan: 1. thyroid: continue Levothyroxine 200 mcg daily for now; repeat TFT in 2-3 weeks. 2. DM: continue current Levemir; adjust Novolog coverage before meals---detail see the inpatient DM order; continue the current Novolog coverage at bedtime; monitor FSGs will follow. Inpatient Diabetes Orders Before Each Meal: Bolus Insulin: Novolog < 80 mg/dl: no coverage 80-100 mg/dl: 4 units 101-120 mg/dl: 4 units 121-150 mg/dl: 4 units 151-200 mg/dl: 6 units 201-250 mg/dl: 8 units 251-300 mg/dl: 9 units 301-350 mg/dl: 10 units 351-400 mg/dl: 11 units > 400 mg/dl: 12 units Subjective Subjective: She feels okay this morning. Objective Last 24 Hrs of Vital Signs/I&O Vital Signs Date Time Temp Pulse Resp B/P Pulse O2 O2 Flow FiO2 Ox Delivery Rate 09/14 736 96.2 86 125/68 09/13 2013 96.9 98 92/62 09/13 1622 88 94/57 09/13 1238 95 111/69 09/13 0856 85 130/76 Findings Pertinent Lab/Gerson Results: Laboratory Tests 09/14 0609 Chemistry TSH (0.270 - 4.200 uIU/mL) 0.070 L Free T4 (0.78 - 2.44 ng/dL) 1.48 Coagulation PT (9.4 - 12.5 SEC) 26.9 H INR (0.90 - 1.19) 2.59 H
--- NOTE | 2016-09-14 09:55 | SOCIAL WORKER PROG NOTE PSYCH ---
Social Work Progress Note Progress Note Met with Sindy today, she reports being in shock that her son . She stated "Is this real, I can't believe this happened!" She reports no SI/HI, no psychosis. She is tearful, recounted in detail the of her son, last week. She also spoke in detail about her other (2) son's deaths. She repeatd how she feels it's the home that has "bad energy", and she plans to move out. She stated she is having reocurring thoughts of her son's . She is blaming her son's (for not brining him to the hospital or calling 911 sooner). Sindy stated she doesn't feel ready to discharge. Spoke with Anamika Orr LCSW and plan for discharge on Saturday09/17/16 (IOP transfer faxed to [facility]), and intake scheduled for 09/17/16 at 12:30pm. Encouraged Sindy to consider having a Business Services Administrator (Margarito) visit with her if she chooses to or wants to. She stated she would think about it. She did mention how she feels the medication will cause weight gain, and is concerned about this.
--- NOTE | 2016-09-14 10:45 | CP SOUTH PROGRESS NOTE PSYCH ---
Psych (Inpt) Progress Note Progress Note This note opened in error. plan. Liaison with other physicians/providers. Progress Note: I discussed this patient's progress to date, current mental status, treatment process in the context of the treatment plan, and discharge planning with staff/ team in the daily morning inpatient team meeting. I also met with the patient myself in individual session. A total of 15 minutes was spent with the patient with more than 50% spent in counseling and/or coordination of care. SUBJECTIVE: OBJECTIVE: Current Medications Sig/Pierce Start time Last Medication Dose Route Stop Time Status Admin Albuterol Sulfate 2 PUF Q4-6 PRN PRN 09/11 2300 AC 09/12 INH 0620 Albuterol Sulfate 3 ML Q4 HRS NEEDED PRN 09/11 2245 AC INH Alendronate Sodium 70 MG Q7D 09/17 0700 AC PO Alprazolam 1 MG Q6PRN PRN 09/11 2300 AC 09/13 PO 09/18 2259 2243 Atorvastatin Calcium 20 MG AT BEDTIME 09/12 2200 AC 09/13 PO 2146 Budesonide/ 1 PUF BID 09/11 2330 AC 09/14 Formoterol Fumarate INH 1004 Diltiazem HCl 240 MG DAILY 09/12 1000 AC 09/14 PO 1001 Diphenhydramine HCl 25 MG AT BEDTIME NEED.. 09/13 1615 AC PO Ergocalciferol 50,000 IU Q7D 09/17 1000 AC PO Escitalopram Oxalate 20 MG DAILY 09/12 1000 AC 09/14 PO 1001 Ferrous Sulfate 325 MG DAILY 09/12 1000 AC 09/14 PO 1001 Furosemide 40 MG DAILY 09/12 1000 AC 09/14 PO 1001 Insulin Aspart 0 TIDAC/HS 09/12 1200 AC 09/13 SC 1659 Insulin Detemir 10 UNITS AT BEDTIME 09/12 2200 AC 09/13 SC 2241 Insulin Detemir 15 UNITS DAILY 09/12 1000 AC 09/14 SC 1035 Levothyroxine Sodium 0.2 MG DAILY AC 09/12 0700 AC 09/14 PO 0556 Lisinopril 5 MG DAILY 09/12 1000 AC 09/14 PO 1003 Magnesium Hydroxide 30 ML AT BEDTIME PRN 09/11 2315 AC PO Melatonin 10 MG AT BEDTIME 09/13 2200 AC 09/13 PO 2242 Montelukast Sodium 10 MG 09/11 2330 AC 09/13 PO 2146 Omeprazole 40 MG DAILY AC 09/12 0700 AC 09/14 PO 0556 Oxycodone HCl 10 MG Q6-PRN PRN 09/12 2230 AC 09/13 PO 1946 Prednisone 15 MG DAILY 09/12 1000 AC 09/14 PO 1002 Pregabalin 75 MG TID 09/11 2255 AC 09/14 PO 1035 Quetiapine Fumarate 25 MG AT BEDTIME 09/13 2200 AC 09/13 PO 2146 Quetiapine Fumarate 50 MG AT BEDTIME 09/12 2200 DC 09/12 PO 2203 Warfarin Sodium 4 MG COUMADIN 1700 ONE 09/13 1700 DC 09/13 PO 09/13 1701 1654 Laboratory Tests 09/14 0609 Chemistry TSH (0.270 - 4.200 uIU/mL) 0.070 L Free T4 (0.78 - 2.44 ng/dL) 1.48 Coagulation PT (9.4 - 12.5 SEC) 26.9 H INR (0.90 - 1.19) 2.59 H Vital Signs Date Time Temp Pulse Resp B/P Pulse O2 O2 Flow FiO2 Ox Delivery Rate 09/14 1003 86 125/68 09/14 0737 96.2 86 125/68 09/13 2013 96.9 98 92/62 09/13 1622 88 94/57 09/13 1238 95 111/69 ASSESSMENT: Depression:[default value]/10; Anxiety:[default value]/10 (with 10 the worst.) [default value] suicidal ideation, homicidal ideation, auditory hallucinations, visual hallucinations, paranoid ideation. Speech is well articulated, goal-directed, average in rate, volume and tone. The patient understands the risks/benefits/side effects of the medication and is agreeable to continue taking them. PLAN: Continue with current management as patient is improving. Continue to provide support and encouragement.
[2016-09-14 12:19] VITALS: BP 115/67
--- NOTE | 2016-09-14 13:38 | NUR ---
Patient presents with brighter affect. Attending all groups. Social with peers. Able to discuss grief issues in groups and with peers. Patient denies SI at present. Reports depressed mood as improved 02/25.
[2016-09-14 15:37] VITALS: BP 143/75
--- NOTE | 2016-09-14 16:05 | CP SOUTH PROGRESS NOTE PSYCH ---
Psych (Inpt) Progress Note Progress Note Progress Note: I discussed this patient's progress to date, current mental status, treatment process in the context of the treatment plan, and discharge planning with staff/ team in the daily morning inpatient team meeting. I also met with the patient myself in individual session. OBJECTIVE: Current Medications Sig/Pierce Start time Last Medication Dose Route Stop Time Status Admin Albuterol Sulfate 2 PUF Q4-6 PRN PRN 09/11 2300 AC 09/12 INH 0620 Albuterol Sulfate 3 ML Q4 HRS NEEDED PRN 09/11 2245 AC INH Alendronate Sodium 70 MG Q7D 09/17 0700 AC PO Alprazolam 1 MG Q6PRN PRN 09/11 2300 AC 09/13 PO 09/18 2259 2243 Atorvastatin Calcium 20 MG AT BEDTIME 09/12 2200 AC 09/13 PO 2146 Budesonide/ 1 PUF BID 09/11 2330 AC 09/14 Formoterol Fumarate INH 1004 Diltiazem HCl 240 MG DAILY 09/12 1000 AC 09/14 PO 1001 Diphenhydramine HCl 25 MG AT BEDTIME NEED.. 09/13 1615 AC PO Ergocalciferol 50,000 IU Q7D 09/17 1000 AC PO Escitalopram Oxalate 20 MG DAILY 09/12 1000 AC 09/14 PO 1001 Ferrous Sulfate 325 MG DAILY 09/12 1000 AC 09/14 PO 1001 Furosemide 40 MG DAILY 09/12 1000 AC 09/14 PO 1001 Insulin Aspart 0 TIDAC/HS 09/12 1200 AC 09/14 SC 1226 Insulin Detemir 10 UNITS AT BEDTIME 09/12 2200 AC 09/13 SC 2241 Insulin Detemir 15 UNITS DAILY 09/12 1000 AC 09/14 SC 1035 Levothyroxine Sodium 0.2 MG DAILY AC 09/12 0700 AC 09/14 PO 0556 Lisinopril 5 MG DAILY 09/12 1000 AC 09/14 PO 1003 Magnesium Hydroxide 30 ML AT BEDTIME PRN 09/11 2315 AC PO Melatonin 10 MG AT BEDTIME 09/13 2200 AC 09/13 PO 2242 Montelukast Sodium 10 MG 2200 09/11 2330 AC 09/13 PO 2146 Omeprazole 40 MG DAILY AC 09/12 0700 AC 09/14 PO 0556 Oxycodone HCl 10 MG Q6-PRN PRN 09/12 2230 AC 09/13 PO 1946 Prednisone 15 MG DAILY 09/12 1000 09/14 PO 1002 Pregabalin 75 MG TID 09/11 2255 09/14 PO 1035 Quetiapine Fumarate 25 MG AT BEDTIME 09/13 2200 AC 09/13 PO 2146 Quetiapine Fumarate 50 MG AT BEDTIME 09/12 2200 DC 09/12 PO 2203 Warfarin Sodium 4 MG COUMADIN 1700 ONE 09/14 1700 AC PO 09/14 1701 Warfarin Sodium 4 MG COUMADIN 1700 ONE 09/13 1700 DC 09/13 PO 09/13 1701 1654 Laboratory Tests 09/14 0609 Chemistry TSH (0.270 - 4.200 uIU/mL) 0.070 L Free T4 (0.78 - 2.44 ng/dL) 1.48 Coagulation PT (9.4 - 12.5 SEC) 26.9 H INR (0.90 - 1.19) 2.59 H Vital Signs Date Time Temp Pulse Resp B/P Pulse O2 O2 Flow FiO2 Ox Delivery Rate 09/14 1537 80 143/75 09/14 1219 98 115/67 09/14 1003 86 125/68 09/14 0737 96.2 86 125/68 09/13 2014 96.9 98 92/62 09/13 1622 88 94/57 ASSESSMENT: Patient presents today with a smile. States she is feeling good. She appears to be in an upbeat mood. States that she slept well last night after taking Seroquel 25 mg and melatonin 10 mg at bedtime. Tolerating her medications well, she offers no complaints today. When asked about depression, she states that the depression that she feels from the of her sons is something that she will feel for the rest of her life. Denies anxiety this morning. Patient engaged in the community, will willingly engage in outpatient treatment after discharge. She reports that she is not having suicidal ideation, nor having auditory or visual hallucinations while in the hospital. She however believes that there is "bad energy" in her house, and is afraid to return there. She believes that the hallucinations and the suicidal ideation will return if she were to return home. States she is planning on living with her son and his family after discharge. Denies suicidal ideation, homicidal ideation, auditory hallucinations, visual hallucinations, paranoid ideation. Speech is well articulated, goal-directed, average in rate, volume and tone. Non-eastern cherokee Tajik speaker. Logical. Alert and oriented 3. Cooperative and pleasant. The patient understands the risks/benefits/side effects of the medication and is agreeable to continue taking them. PLAN: Continue with current management as patient is improving. Anticipate discharge early next week. Continue to provide support and encouragement.
[2016-09-14 19:49] VITALS: BP 158/77
--- NOTE | 2016-09-14 21:38 | NUR ---
Pt is out in the community mood is stable affect is in full range. Pt is compliant and cooperative. Vital signs are stable appetite is good. Will continue to monitor the pt overnight.
[2016-09-15 08:10] VITALS: BP 101/64
[2016-09-15 08:20] LABS: PT 30.8 SEC (9.4-12.5)
--- NOTE | 2016-09-15 08:42 | PN- Diabetes ---
Assessment/Plan Assessment: 65-year-old female with PMHx off HTN, DM on insulin, asthma on prednisone, hypothyroidism, anxiety/depression, atrial fibrillation and osteoporosis, was admitted for major depression, suicidal ideation and hallucinations. With regards to hypothyroidism, she is on Levothyroxine 200 mcg daily. Repeat TSH 0.070 and free T4 1.48. With regards to DM, patient currently is on prednisone 15 mg daily because of asthma, she is on Levemir 15 units am and 10 units at bedtime, Novolog coverage before meals and bedtime. Most recent fingerstick blood sugars are 125 before breakfast, 244 before lunch, 220 to before dinner, and 193 at bedtime. This morning her fingerstick blood sugar before breakfast is 99. Plan: Suggest continue the present insulin. Continue to monitor the blood sugars carefully. Patient's dose of thyroid hormone has been reduced to 200 g of levothyroxine daily which is 50 g less than she was taking at home. Thyroid function tests will need to be repeated in 3-4 weeks to see if this is the proper amount. Subjective Subjective: Feels improved Review of Systems Constitutional: Denies: chills, fever. Cardiovascular: Denies: chest pain. Respiratory: Denies: short of breath. Gastrointestinal: Denies: abdominal pain. Skin: Reports: no symptoms. Objective Last 24 Hrs of Vital Signs/I&O Vital Signs Date Time Temp Pulse Resp B/P Pulse O2 O2 Flow FiO2 Ox Delivery Rate 09/15 0810 96.1 93 101/64 09/14 1949 97.8 97 158/77 09/14 1537 80 143/75 09/14 1219 98 115/67 09/14 1003 86 125/68 Vital Signs Date Time Temp Pulse Resp B/P Pulse O2 O2 Flow FiO2 Ox Delivery Rate 09/15 0810 96.1 93 101/64 09/14 1949 97.8 97 158/77 09/14 1537 80 143/75 09/14 1219 98 115/67 09/14 1003 86 125/68 Physical Exam General Appearance: alert, awake Head: normal appearance Respiratory: normal breath sounds Cardiovascular: regular rate/rhythm Extremities: normal inspection Current Medications: Current Medications Sig/Pierce Start time Last Medication Dose Route Stop Time Status Admin Albuterol Sulfate 2 PUF Q4-6 PRN PRN 09/11 2300 AC 09/12 INH 0620 Albuterol Sulfate 3 ML Q4 HRS NEEDED PRN 09/11 2245 AC INH Alendronate Sodium 70 MG Q7D 09/17 0700 AC PO Alprazolam 1 MG Q6PRN PRN 09/11 2300 AC 09/14 PO 09/18 2259 2157 Atorvastatin Calcium 20 MG AT BEDTIME 09/12 2200 AC 09/14 PO 2154 Budesonide/ 1 PUF BID 09/11 2330 AC 09/14 Formoterol Fumarate INH 2155 Diltiazem HCl 240 MG DAILY 09/12 1000 AC 09/14 PO 1001 Diphenhydramine HCl 25 MG AT BEDTIME NEED.. 09/13 1615 AC 09/14 PO 2253 Ergocalciferol 50,000 IU Q7D 09/17 1000 AC PO Escitalopram Oxalate 20 MG DAILY 09/12 1000 AC 09/14 PO 1001 Ferrous Sulfate 325 MG DAILY 09/12 1000 AC 09/14 PO 1001 Furosemide 40 MG DAILY 09/12 1000 AC 09/14 PO 1001 Insulin Aspart 0 TIDAC/HS 09/12 1200 AC 09/14 SC 1710 Insulin Detemir 10 UNITS AT BEDTIME 09/12 2200 AC 09/14 SC 2158 Insulin Detemir 15 UNITS DAILY 09/12 1000 AC 09/14 SC 1035 Levothyroxine Sodium 0.2 MG DAILY AC 09/12 0700 AC 09/15 PO 0655 Lisinopril 5 MG DAILY 09/12 1000 AC 09/14 PO 1003 Magnesium Hydroxide 30 ML AT BEDTIME PRN 09/11 2315 AC PO Melatonin 10 MG AT BEDTIME 09/13 2200 AC 09/14 PO 2154 Montelukast Sodium 10 MG 09/11 2330 AC 09/14 PO 2155 Omeprazole 40 MG DAILY AC 09/12 0700 AC 09/15 PO 0655 Oxycodone HCl 10 MG Q6-PRN PRN 09/12 2230 AC 09/14 PO 2157 Prednisone 15 MG DAILY 09/12 1000 AC 09/14 PO 1002 Pregabalin 75 MG TID 09/11 2255 AC 09/14 PO 2154 Quetiapine Fumarate 25 MG AT BEDTIME 09/13 2200 AC 09/14 PO 2154 Warfarin Sodium 4 MG COUMADIN 1700 ONE 09/14 1700 DC 09/14 PO 09/14 1701 1621 Findings Pertinent Lab/Gerson Results: Laboratory Tests 09/15 0713 Coagulation PT (9.4 - 12.5 SEC) 30.8 H INR (0.90 - 1.19) 2.97 H
--- NOTE | 2016-09-15 09:12 | Event Note ---
Event Note Event Note: INR is 2.97 today. Will hold Coumadin today and re-evaluate INR tomorrow.
--- NOTE | 2016-09-15 12:08 | NUR ---
PT REPORTS HER MOOD IS IMPROVING. SHE DENIES ANY SUICIDAL THOUGHTS. SHE EXPRESSES HER FEELINGS TO STAFF AND PEERS IN A CALM AND APPROPRIATE MANNER. SHE IS COMPLIANT WITH HER MED REGIME. DR GUZMAN IN TODAY TO SEE PT AND REVIEW HER BLOOD SUGARS
[2016-09-15 12:47] VITALS: BP 143/85
[2016-09-15 15:52] VITALS: BP 118/55
--- NOTE | 2016-09-15 16:22 | CP SOUTH PROGRESS NOTE PSYCH ---
Psych (Inpt) Progress Note Progress Note Include the following elements, when applicable: Involvement in the active treatment of the patient with behavioral observations of the patient and the patient's response to the treatment. Review of the ongoing treatment process in the context of the treatment plan. Indication of how multi-disciplinary staff members are carrying out the treatment plan. Plans for future interventions and recommendations for revision of the treatment plan. Liaison with other physicians/providers. Progress Note: Depressed, tearful and spoke about her children much of the session. Feels her house is cursed b/c of the deaths occurring there. Later on more reactive, smiling, stating that she loves all of her children and that they keep her going. Ambivalent about her future, stating at times that she feels she cant get better but overall stating that she is looking forward to seeing her family again and getting better. stated that she has no medication complaints or issues. Feet are less swollen than they were a few days ago. INR is 2.97, per outside rigger will hold dose today and re-eval tmr. MSE: middle aged woman, fair grooming. No psychomotor agitation/slowing noted. Fair eye contact. Tearful, crying initially. Mood depressed, affect full to constricted; more reactive and optimistic later. Thought process tangential at times but overall logical. No suicidal thoughts; at times stated she wanted to be w/ her sons but not current. No hallucinations noted. Insight adequate, judgment fair. Risk associated w/ multiple family deaths, depressive sx; hopelessness. Manage w / education, med titration, mileu therapy, groups. A: 65 y/o woman w/ hx depressive sx, admitted w/ si after recent of her son, had another son earlier in the year. Improving compared to admission but still labile, depressed and tearful at times. Plan: No medication changes; continue engagement in the mileu; family coming to visit today.
[2016-09-15 20:22] VITALS: BP 120/84
--- NOTE | 2016-09-15 22:28 | NUR ---
PT IS CALM, COOPERATIVE WITH STAFF AND PEERS, AND COMPLIANT WITH UNIT RULES. PT HAS A KIND DEMEANOR AND IS INTERACTING WELL WITH PEERS WHILE IN [place]. PT MOSTLY STAYS TO SELF, BUT STILL ENGAGES OTHERS AT TIMES. PT RECIEVED VISIT FROM FAMILY DURING SHIFT. MOOD IS STABLE, AFFECT IS EUTHYMIC TO FULL RANGE, COMMUNICATION IS NORMAL, AND APPETITE IS NORMAL. PT DENIES SI AT THIS TIME. PT BLOOD GLUCOSE LEVELS - AT 1630 WAS AT 214, AND 2130 WAS AT 264.
--- NOTE | 2016-09-16 05:27 | NUR ---
PATIENT SLEPT ALL NIGHT.
[2016-09-16 07:55] VITALS: BP 146/87
[2016-09-16 08:36] LABS: PT 26.2 SEC (9.4-12.5)
[2016-09-16 12:14] VITALS: BP 117/67
--- NOTE | 2016-09-16 12:25 | NUR ---
Pt is present in the community, A&O X 3, compliant with medication and group therapies/ activities. Pt was observed very tearing/labile, reporting consistent thought of her sons. Pt set up her daily goal during planning meeting to be out her room as to prevent the HV of her sons Vital sign and blood sugar are stable and within the patient's acceptable range. Patient denies thought of self harm and to someone else.
--- NOTE | 2016-09-16 14:14 | CP SOUTH PROGRESS NOTE PSYCH ---
Psych (Inpt) Progress Note Progress Note Include the following elements, when applicable: Involvement in the active treatment of the patient with behavioral observations of the patient and the patient's response to the treatment. Review of the ongoing treatment process in the context of the treatment plan. Indication of how multi-disciplinary staff members are carrying out the treatment plan. Plans for future interventions and recommendations for revision of the treatment plan. Liaison with other physicians/providers. Progress Note: Stated that shefeels much bettter today; that her family came yesterday and made her feel better. she stated that her son was crying yesterday and wants her to come home. Discussed that she needs to focus on her own mental health and be stabilized so she can be there for her family. Overall, better spirits compated to yesterday; still becoming tearful when talking about her son, blaming herself , but more able to be redirected and better reality testing. Stated that she slept not as well last night, told her that she needs to ask for benadryl b/c it is PRN. Wants to go home and be w/ her family. MSE: middle aged woman, well groomed. Speech accented. Overweight. Good eye contact. No psychomotor agitation/slowing noted. Tearful briefly. Mood is more euthymic compared to yesterday. Affect is full and congruent. Thought process less tangential but still preoccupied w/ of her sons. No suicidal thoughts , future oriented, saying can I go home tomorrow. No hallucinations noted. Insight adequate, judgment fair. Risk associated w/ multiple family deaths, depressive sx; hopelessness. Manage w / education, med titration, mileu therapy, groups. A: 65 y/o woman w/ hx depressive sx, admitted w/ si after recent of her son, had another son earlier in the year. Improving overall. Plan: No medication changes; continue engagement in the mileu; discharge planning as per primary team.
[2016-09-16 16:22] VITALS: BP 138/79
[2016-09-16 20:10] VITALS: BP 136/84
--- NOTE | 2016-09-16 21:21 | NUR ---
PT IS VISIBLE ON UNIT, SOCIALIZING WITH PEERS. HAD VISIT FROM SON. PT WAS LABILE AND TEARFUL FOR PART OF THE EVENING, SUPPORT FROM STAFF WAS GIVEN. ATTENDED WRAP UP AND PARTICIPATED. NO COMPLAINTS OR SI REPORTED. PT HAS A ANXIOUS MOOD AND LABILE AFFECT.
--- NOTE | 2016-09-17 04:18 | NUR ---
SLEPT WELL AFTER MIDNIGHT.
[2016-09-17 08:01] VITALS: BP 139/83
[2016-09-17 08:19] LABS: PT 30.4 SEC (9.4-12.5)
--- NOTE | 2016-09-17 08:42 | PN- Diabetes ---
Assessment/Plan Assessment: 65-year-old female with PMHx off HTN, DM on insulin, asthma on prednisone, hypothyroidism, anxiety/depression, atrial fibrillation and osteoporosis, was admitted for major depression, suicidal ideation and hallucinations. With regards to hypothyroidism, she is on Levothyroxine 200 mcg daily. Repeat TSH 0.070 and free T4 1.48. With regards to DM, patient currently is on prednisone 15 mg daily because of asthma, she is on Levemir 15 units am and 10 units at bedtime, Novolog coverage before meals and bedtime. Most recent fingerstick blood sugars were 127, 255, 227 and 248. Plan: continue the current Levothyroxine 200 mcg daily for now; continue the current insulin regimen for now; monitor FSGs. will follow. Please contact me to go over the discharge plan for thyroid and DM if she is going home today. Subjective Subjective: She is in her room at this moment. As per nurse, she has been doing well. She might be discharged today. Objective Last 24 Hrs of Vital Signs/I&O Laboratory Tests 09/17 606 Coagulation PT (9.4 - 12.5 SEC) 30.4 H INR (0.90 - 1.19) 2.93 H Vital Signs Date Time Temp Pulse Resp B/P Pulse O2 O2 Flow FiO2 Ox Delivery Rate 09/17 800 96.3 94 139/83 09/16 2009 97.6 88 136/84 09/16 1622 91 138/79 09/16 1214 85 117/67 Findings Pertinent Lab/Gerson Results: Laboratory Tests 09/17 606 Coagulation PT (9.4 - 12.5 SEC) 30.4 H INR (0.90 - 1.19) 2.93 H
[2016-09-17 09:48] VITALS: BP 139/83
[2016-09-17] MEDS ORDERED: DIPHENHYDRAMINE25 M4 PO (11:10)
[2016-09-17] MEDS ORDERED: LANTUS SOL100 UNIT/1 SC (11:40)
[2016-09-17] MEDS ORDERED: COUMADIN3 M1 PO (11:43)
--- NOTE | 2016-09-17 11:54 | NUR ---
will be discharged today to [facility] with follow up at [facility]. Rcvd. orders from and for diabetic meds and anticoagulation meds respectively. Patient to follow up on Sep 1 w/ existing audience development manager for additional orders. Mood is stable, euthymic affect. Denied any current thoughts of self harm when asked. Given education on suicide prevention and major depression.
[2016-09-17] MEDS ORDERED: XANAX1 M1 PO (12:00)
--- NOTE | 2016-09-17 12:11 | CP SOUTH PROGRESS NOTE PSYCH ---
Psych (Inpt) Progress Note Progress Note This note opened in error. Liaison with other physicians/providers. Progress Note: I discussed this patient's progress to date, current mental status, treatment process in the context of the treatment plan, and discharge planning with staff/ team in the daily morning inpatient team meeting. I also met with the patient myself in individual session. A total of minutes was spent with the patient with more than 50% spent in counseling and/or coordination of care. SUBJECTIVE: OBJECTIVE: Current Medications Sig/Pierce Start time Last Medication Dose Route Stop Time Status Admin Acetaminophen 500 MG Q6P PRN 09/15 2045 DC 09/15 PO 2030 Albuterol Sulfate 2 PUF Q4-6 PRN PRN 09/11 2300 AC 09/12 INH 0620 Albuterol Sulfate 3 ML Q4 HRS NEEDED PRN 09/11 2245 AC INH Alendronate Sodium 70 MG Q7D 09/17 0700 AC 09/17 PO 0652 Alprazolam 1 MG Q6PRN PRN 09/11 2300 AC 09/17 PO 09/18 2259 0802 Atorvastatin Calcium 20 MG AT BEDTIME 09/12 2200 AC 09/16 PO 2135 Budesonide/ 1 PUF BID 09/11 2330 AC 09/17 Formoterol Fumarate INH 0950 Diltiazem HCl 240 MG DAILY 09/12 1000 AC 09/17 PO 0948 Diphenhydramine HCl 25 MG AT BEDTIME NEED.. 09/13 1615 AC 09/16 PO 2134 Ergocalciferol 50,000 IU Q7D 09/17 1000 AC 09/17 PO 0948 Escitalopram Oxalate 20 MG DAILY 09/12 1000 AC 09/17 PO 0948 Ferrous Sulfate 325 MG DAILY 09/12 1000 AC 09/17 PO 0948 Furosemide 40 MG DAILY 09/12 1000 AC 09/17 PO 0948 Ibuprofen 600 MG Q6P PRN 09/16 1415 AC 09/16 PO 2135 Insulin Aspart 0 TIDAC/HS 09/12 1200 AC 09/17 SC 0944 Insulin Detemir 10 UNITS AT BEDTIME 09/12 2200 AC 09/16 SC 2139 Insulin Detemir 15 UNITS DAILY 09/12 1000 AC 09/17 SC 0945 Levothyroxine Sodium 0.2 MG DAILY AC 09/12 0700 AC 01/30 PO 0800 Lisinopril 5 MG DAILY 09/12 1000 AC 09/17 PO 0948 Magnesium Hydroxide 30 ML AT BEDTIME PRN 09/11 2315 AC PO Melatonin 10 MG AT BEDTIME 09/130 AC 09/16 PO 2135 Montelukast Sodium 10 MG 2200 09/11 2330 AC 09/16 PO 2134 Omeprazole 40 MG DAILY AC 09/12 0700 AC 09/17 PO 0759 Oxycodone HCl 10 MG Q6-PRN PRN 09/12 2230 AC 09/17 PO 0950 Prednisone 15 MG DAILY 09/12 1000 AC 09/17 PO 0948 Pregabalin 75 MG TID 09/11 225 AC 09/17 PO 0950 Quetiapine Fumarate 25 MG AT BEDTIME 09/13 2199 AC 09/16 PO 2135 Warfarin Sodium 4 MG COUMADIN 1700 ONE 09/16 1700 DC 09/16 PO 09/16 1701 1656 Laboratory Tests 09/17 0607 Coagulation PT (9.4 - 12.5 SEC) 30.4 H INR (0.90 - 1.19) 2.93 H Vital Signs Date Time Temp Pulse Resp B/P Pulse O2 O2 Flow FiO2 Ox Delivery Rate 09/17 0948 94 139/83 09/17 0801 96.3 94 139/83 09/16 2009 97.6 88 136/84 09/16 1622 91 138/79 09/16 1214 85 117/67 ASSESSMENT: Depression:[default value]/10; Anxiety:[default value]/10 (with 10 the worst.) [default value] suicidal ideation, homicidal ideation, auditory hallucinations, visual hallucinations, paranoid ideation. Speech is well articulated, goal-directed, average in rate, volume and tone. The patient understands the risks/benefits/side effects of the medication and is agreeable to continue taking them. PLAN: Continue with current management as patient is improving. Continue to provide support and encouragement.
--- NOTE | 2016-09-17 12:14 | DISCHARGE SUMMARY REPORT-PSYCH ---
Visit Information Visit Dates/Diagnosis' Admission Date: 09/11/16 Discharge Date: 09/17/16 Reason for Admission: Brought in by ambulance after expressing suicidal thoughts to her outpatient psychiatric provider. Patient reported that she has experienced the of one of her 9 sons two weeks ago from an asthma attack. Another son of a seizure 6 months ago. Another son was murdered 24 years ago when he was 19 years old. Psy Discharge Primary Diag: Major Depressive d/o with auditory and visual hallucinations, suicidal ideation, now resolved. Psy Discharge Secondary Diag: AFIB; asthma; GERD; CKD; osteoporosis; DM; hypothyroid; anemia. Surgical history: of b/l knee replacements; b/l ankle fusions; breast reduction; abdominoplasty. Hospital Course Significant Lab Findings: Lab BUN 22 mg/dL H 09/12/16 0616 Creatinine 1.0 mg/dL 09/12/16 0616 Estimated GFR 56 ml/min L 09/12/16 0616 Free T4 1.54 ng/dL 09/12/16 0616 Free T4 1.48 ng/dL 09/14/16 0609 Glucose 226 mg/dL H 09/11/16 1644 Hemoglobin A1c 9.6 H 09/11/16 1637 TSH 0.070 uIU/mL L 09/14/16 0609 TSH &T3 &Free T4 Intrp 0.183 uIU/mL L 09/12/16 0616 Total T3 1.09 ng/mL 09/12/16 0616 INR 2.59 H 09/14/16 0609 INR 2.97 H 09/15/16 0713 INR 2.52 H 09/16/16 0658 INR 2.93 H 09/17/16 0607 PT 26.9 SEC H 09/14/16 0609 PT 30.8 SEC H 09/15/16 0713 PT 26.2 SEC H 09/16/16 0658 PT 30.4 SEC H 09/17/16 0607 Course Complications: The patient was followed for thyroid function and diabetes mellitus by Drs. Alaniz and Aron. Please refer to their notes for additional information. The patient was followed for PT/INR and coumadin therapy by Dr. Hernandez and house staff. Please refer to his note for additional information Consultations: The patient was seen for admission history and physical by Dr. Aragon. Please refer to the H&P for additional information. Allergies: Coded Allergies: amoxicillin (From AUGMENTIN) (Severe, throat chocking 09/12/16) clavulanic acid (From AUGMENTIN) (Severe, throat chocking 09/12/16) Hospital Course/TX Response: The patient was monitored on the unit for safety, suicidal ideation, and depression. She participated in multi-modal treatments on the unit. She was medicated with Seroquel 25mg at bedtime for clear thoughts and for sleep, and Lexapro for depression and anxiety. She reported tolerating these medications well, to good effect. In addition she was followed by house staff and endocrinology for mulitple comorbidities. A family meeting was held along with drug abuse social worker Anamika Mac, and the patient's . He expressed his support for the patient, and is looking forward to her discharge. The patient and her plan on living with their son and his family after discharge. Today, the day of discharge, she states that she remains very sad after the recent of her son, however feels that she is safe and ready for discharge today. States that she knows that her family does not want her to come home to see her cry, however "I'll be crying for the rest of my life." States that she is looking forward to continuing therapy at [facility]. Reports tolerating her medications well, without complaint. PT/INR/Coumadin dose evaluated and managed today by Dr. Yuen. Thyroid function and diabetes management as per Dr. Alaniz. Patient states she will follow up on Saturday with her food safety director Dr. Reyes Arroyo in [place] for PT/INR testing. Denies suicidal ideation, homicidal ideation, auditory hallucinations, visual hallucinations, paranoid ideation. Patient states and also believes that she will not kill herself. States that her surviving children are her protective factor, especially the youngest son. Speech is well articulated, goal-directed, average in rate, volume and tone. Calm, cooperative, pleasant. Alert and oriented 3. Logical. Sad mood. The patient understands the risks/benefits/side effects of the medication and is agreeable to continue taking them. Patient reports tolerating her medications well, without complaint. States she feels safe and ready for discharge. Discharge HBIPS - Tobacco Use Treatment Offered Post DC Medications Offered: NA-No Tob Use >30 days Post DC Tobacco Treatment Plan: NA-No Tobacco use >30days - EtOH/Drug Use D/O Treatment Offered Post DC Medications Offered: NA-No EtOH/Drug Use D/O Post DC EtOH/SubAbuse TX Plan: NA-No EtOH/Drug Use D/O Metabolic Screening - Screen if on a Neuroleptic Medication - Metabolic screening should include: - Blood Pressure, BMI, Glucose or Hgb A1c, & a - Lipid profile from within the past 365 days. Metabolic Screening () Not Applicable, patient not on a neuroleptic. OR ([x]) Patient on a neuroleptic(s) . Enter below results for Glucose or Hemoglobin A1C, and lipid panel if obtained during the last 365 days. BMI: 40.400 Blood Pressure: 139/83 Laboratory Results (If applicable): Lab Cholesterol 132 MG/DL 09/12/16 0616 Cholesterol/HDL Ratio 3 % 09/12/16 0616 HDL Cholesterol 42 mg/dL 09/12/16 0616 Hemoglobin A1c 9.6 H 09/11/16 1637 LDL Cholesterol, Calc 51 mg/dL L 09/12/16 0616 Triglycerides 195 mg/dL H 09/12/16 0616 Discharge Instructions General Discharge Information Discharge Medications: Discharge Medications- (Dose, route, freq, indication): START taking these NEW Home Medications: Diphenhydramine HCl Dose: ORAL, AT BEDTIME Qty: 30 (Diphenhydramine 25 Milligram NEEDED as needed for Refills: 0 HCl) 25 MG CAPSULE INSOMNIA Escitalopram Oxalate Dose: ORAL, DAILY for Qty: 14 Called in (Lexapro) 20 MG 20 Milligram DEPRESSION AND ANXIETY Refills: 0 TABLET Last Taken:09/17/16 Time:0945 Quetiapine Fumarate Dose: ORAL, AT BEDTIME for Qty: 14 Called in (Quetiapine 25 Milligram CLEAR THOUGHTS AND SLEEP Refills: 0 Fumarate) 25 MG Last Taken:09/16/16 TABLET Time:2134 Alprazolam (Xanax) 1 Dose: ORAL, THREE TIMES A DAY Qty: 42 Called in MG TABLET 1 Milligram NEEDED for ANXIETY Refills: 0 TAKE UP TO 3 TIMES DAILY NEEDED FOR ANXIETY. Levothyroxine Sodium Dose: ORAL, DAILY BEFORE Qty: 14 Called in (Synthroid) 200 MCG 0.2 Milligram BREAKFAST for THYROID Refills: 0 TABLET Last Taken:09/17/16 Time:0800 [Melatonin] 10 MG Dose: ORAL, AT BEDTIME for Qty: 30 TAB 10 Milligram SLEEP Refills: 0 Last Taken:09/16/16 Time:2134 Warfarin Sodium Dose: ORAL, DAILY for AFIB Qty: 7 Called in (Coumadin) 3 MG 3 Milligram Last Taken: Refills: 0 TABLET Time:DOSE ADJUSTED DAILY CONTINUE taking these Home Medications: Diltiazem HCl (Diltiazem Dose: ORAL, DAILY for CARDIAC 24HR ER) 240 MG 1 Capsule Last Taken:09/17/16 CAP.ER.24H Time:944 Pregabalin (Lyrica) 75 Dose: ORAL, THREE TIMES DAILY MG CAPSULE 1 Capsule for PAIN Last Taken:09/17/16 Time:944 Glipizide (Glucotrol XL) Dose: ORAL, TWICE DAILY for 5 MG TAB.ER.24 1 Tablet DIABETES Last Taken:NOT GIVEN IN THE HOSPITAL Time: Lisinopril (Lisinopril) Dose: ORAL, DAILY for CARDIAC 5 MG TABLET 1 Tablet Last Taken:09/17/16 Time:944 Albuterol Sulfate Dose: Inhale through mouth, (Proair Hfa) 90 MCG 2 Puff EVERY 4-6 HOURS HFA.AER.AD NEEDED as needed for ASTHMA Fluticasone/Salmeterol Dose: Inhale through mouth, (Advair 500-50 Diskus) 1 Puff TWICE DAILY for ASTHMA 500 MCG-50 MCG/DOSE Last Taken:09/17/16 BLST.W.DEV Time:949 Linaclotide (Linzess) Dose: ORAL, DAILY for 145 MCG CAPSULE 1 Capsule CONSTIPATION Alendronate Sodium Dose: ORAL, Once a Week for (Fosamax) 70 MG TABLET 1 Tablet OSTEOPOROSIS in the morning, at least 30 minutes before the first food, beverage, or medication of the day Last Taken:09/17/16 Time:0650 Simvastatin (Zocor*) 20 Dose: ORAL, Every night for MG TABLET 1 Tablet HPL Last Taken:09/16/16 Time:2129 Ergocalciferol (Vitamin Dose: ORAL, Once a Week for D2) (Vitamin D2) 50,000 1 Capsule SUPPLEMENT UNIT CAPSULE Last Taken:09/17/16 Time:48 Furosemide (Lasix) 40 MG Dose: ORAL, DAILY for CARDIAC TABLET 1 Tablet Last Taken:09/17/16 Time:944 Prednisone (Prednisone) Dose: ORAL, DAILY for ASTHMA 5 MG TABLET 15 Milligram Last Taken:09/17/16 Time:944 Montelukast Sodium Dose: ORAL, DAILY for ASTHMA (Singulair) 10 MG TABLET 1 Tablet Last Taken:09/16/16 Time:2129 Pantoprazole Sodium Dose: ORAL, DAILY for STOMACH (Protonix) 40 MG 1 Tablet Last Taken:09/17/16 TABLET.DR Time:758 Insulin Aspart, Dose: SUB-Q, QAC for DIABETES Recombinant (Novolog 6 Units Last Taken:09/17/16 Flexpen) 100 UNIT/ML Time:123 INSULN.PEN Insulin Glargine, Dose: Inject into fatty Hum.rec.anlog (Lantus 15 Unit tissue, DAILY @8 AM for Solostar) 100 UNIT/ML (3 DIABETES ML) INSULN.PEN Last Taken:09/17/16 Time:944 Iron,Carbonyl (Feosol) Dose: ORAL, DAILY for (Unknown Strength) 325 Milligram SUPPLEMENT TABLET Last Taken:09/17/16 Time:944 Oxycodone HCl (Oxycodone Dose: ORAL, Q6H for PAIN HCl) 5 MG TABLET 20 Milligram Insulin Glargine, Dose: Inject into fatty Hum.rec.anlog (Lantus 10 Units tissue, NIGHTLY for Solostar) 100 UNIT/ML (3 DIABETES ML) INSULN.PEN Last Taken:09/16/16 Time:2138 STOP taking these DISCONTINUED Home Medications: Warfarin Sodium (Coumadin) 2 Dose: ORAL, DAILY for CARDIAC MG TABLET 1 Tablet Reason Stopped: Changed Dose Alprazolam (Xanax) 2 MG TABLET Dose: ORAL, QIDPRN for ANXIETY 1 Tablet Reason Stopped: Changed Dose [facility]. [address] [facility]. [place], [place] [id number] Multiple Neuroleptics: ([x]) Not Applicable OR Document below three failed attempts at monotherapy, or a plan to taper to monotherapy, or augmentation of Clozapine. () Patient's Diet: Regular Patient's Activity: No restrictions DC Disposition: Patient and her will be moving from their home, to live with their adult son and his family in [place], [place]. Recommendations: Follow up with your food safety director, Dr. Arroyo, on Saturday for PT/INR testing and coumadin therapy. Follow up with IOP. Referred To: Post Discharge Referrals Provider Referral Service Date: 09/17/16 Referred To: [[facility]] Notes: [address] [place], [place] [address]em[place], [place] [phone] Intake appointment today at 1245pm Provider Referral Service Date: 08/22/16 Referred To: Cruz BRAGA,Prudence [address] [place] [address] Notes: Please have labs drawn and follow up with your food safety director this coming Saturday. Thank you. Copies To: Intensive Outpt Psychiatry
[2016-09-17] MEDS ORDERED: LEXAPRO20 M1 PO (12:28)
[2016-09-17] MEDS ORDERED: QUETIAPINE FUMA25 M1 PO (12:29)
[2016-09-17] MEDS ORDERED: SYNTHROID200 MCG PO (12:34)
[2016-09-17] MEDS ORDERED: Melatonin PO (12:36)
--- NOTE | 2016-09-17 14:50 | SOCIAL WORKER PROG NOTE PSYCH ---
Social Work Progress Note Progress Note Patient to discharge the hospital today. Patient reports multiple family visits over the weekend and her children still being concerned about her. Patient reports continuing to be tearful at times when thinking about her sons deaths but reports that she knows this is part of the grieving process. Patient denies any suicidal thoughts at present but does report continued sadness. Patient plans to temporarily reside with her son in [place], [place] and will be in good company with family during this time. Patient has agreed to attend IOP at and has intake today at 12:45pm. Patient is able to contract for safety today and is aware that if she does not feel safe she can return to ED on her own, or call the police or mobile crisis, and has agreed that she is aware of these options.
--- NOTE | 2016-09-17 15:17 | CP SOUTH PROGRESS NOTE PSYCH ---
Psych (Inpt) Progress Note Progress Note Progress Note: I discussed this patient's progress to date, current mental status, treatment process in the context of the treatment plan, and discharge planning with staff/ team in the daily morning inpatient team meeting. I also met with the patient myself in individual session. SUBJECTIVE: "I'm not crazy. I'm just very sad." OBJECTIVE: Current Medications Sig/Pierce Start time Last Medication Dose Route Stop Time Status Admin Albuterol Sulfate 2 PUF Q4-6 PRN PRN 09/11 2300 DCD 09/12 INH 0620 Albuterol Sulfate 3 ML Q4 HRS NEEDED PRN 09/11 2245 DCD INH Alendronate Sodium 70 MG Q7D 09/17 0700 DCD 09/17 PO 0652 Alprazolam 1 MG Q6PRN PRN 09/11 2300 DCD 09/17 PO 09/18 2259 0802 Atorvastatin Calcium 20 MG AT BEDTIME 09/12 2200 DCD 09/16 PO 2135 Budesonide/ 1 PUF BID 09/11 2330 DCD 09/17 Formoterol Fumarate INH 0950 Diltiazem HCl 240 MG DAILY 09/12 1000 DCD 09/17 PO 0948 Diphenhydramine HCl 25 MG AT BEDTIME NEED.. 09/13 1615 DCD 09/16 PO 2134 Ergocalciferol 50,000 IU Q7D 09/17 1000 DCD 09/17 PO 0948 Escitalopram Oxalate 20 MG DAILY 09/12 1000 DCD 09/17 PO 0948 Ferrous Sulfate 325 MG DAILY 09/12 1000 DCD 09/17 PO 0948 Furosemide 40 MG DAILY 09/12 1000 DCD 09/17 PO 0948 Ibuprofen 600 MG Q6P PRN 09/16 1415 DCD 09/16 PO 2135 Insulin Aspart 0 TIDAC/HS 09/12 1200 DCD 09/17 SC 1231 Insulin Detemir 10 UNITS AT BEDTIME 09/12 2200 DCD 09/16 SC 2139 Insulin Detemir 15 UNITS DAILY 09/12 1000 DCD 09/17 SC 0945 Levothyroxine Sodium 0.2 MG DAILY AC 09/12 0700 DCD 09/17 PO 0800 Lisinopril 5 MG DAILY 09/12 1000 DCD 09/17 PO 0948 Magnesium Hydroxide 30 ML AT BEDTIME PRN 09/11 2315 DCD PO Melatonin 10 MG AT BEDTIME 09/130 DCD 09/16 PO 2135 Montelukast Sodium 10 MG 22009/11 2330 DCD 09/16 PO 2134 Omeprazole 40 MG DAILY AC 09/12 0700 DCD 09/17 PO 0759 Oxycodone HCl 10 MG Q6-PRN PRN 09/12 2230 DCD 09/17 PO 0950 Prednisone 15 MG DAILY 09/12 1000 DCD 09/17 PO 0948 Pregabalin 75 MG TID 09/11 2255 DCD 09/17 PO 0950 Quetiapine Fumarate 25 MG AT BEDTIME 09/13 2199 DCD 09/16 PO 2135 Warfarin Sodium 4 MG COUMADIN 1700 ONE 09/16 1700 DC 09/16 PO 09/16 1701 1656 Laboratory Tests 09/17 0607 Coagulation PT (9.4 - 12.5 SEC) 30.4 H INR (0.90 - 1.19) 2.93 H Vital Signs Date Time Temp Pulse Resp B/P Pulse O2 O2 Flow FiO2 Ox Delivery Rate 09/17 0948 94 139/83 09/17 0801 96.3 94 139/83 09/16 2009 97.6 88 136/84 09/16 1622 91 138/79 ASSESSMENT: Patient states that she remains very sad after the recent of her son, however feels that she is safe and ready for discharge today. States that she knows that her family does not want her to come home to see her cry, however "I'll be crying for the rest of my life." States that she is looking forward to continuing therapy at [facility]. Reports tolerating her medications well, without complaint. PT/INR/Coumadin dose evaluated by Dr. Palacio. Thyroid function and diabetes management as per Dr. Alaniz. Denies suicidal ideation, homicidal ideation, auditory hallucinations, visual hallucinations, paranoid ideation. Patient states and also believes that she will not kill herself. States that her surviving children are her protective factor, especially the youngest son. Speech is well articulated, goal-directed, average in rate, volume and tone. Calm, cooperative, pleasant. Alert and oriented 3. Logical. Sad mood. The patient understands the risks/benefits/side effects of the medication and is agreeable to continue taking them. PLAN: Discharged today, to [facility] intake. Patient is to follow up on Saturday with her nutrition manager Dr. Reyes Arroyo in [place]. Continue with current management as patient is improving. Continue to provide support and encouragement.
== END 2016-09-17 13:10 | DRG 754 ==
LOC: ERH 15:33 → ERHI 19:04 → CP SOUTH 19:04 → ENPENDDIS 19:04 → CP SOUTH 20:56
PROVIDERS: Emergency Medicine; Hospitalist; Internal Medicine; Psychiatry & Neurology Psychiatry; ADMIT Psychiatry & Neurology Psychiatry
DX: F32.9 Major depressive disorder, single episode, unspecified (principal); I48.91 Unspecified atrial fibrillation; J45.909 Unspecified asthma, uncomplicated; K21.9 Gastro-esophageal reflux disease without esophagitis; N18.9 Chronic kidney disease, unspecified; M81.0 Age-related osteoporosis without current pathological fracture; E11.9 Type 2 diabetes mellitus without complications; E03.9 Hypothyroidism, unspecified; D64.9 Anemia, unspecified
CPT/HCPCS: 36415; 80307; 82436; 90834; 93005; 93010; G0480; J1815; J3490; J7512

== ENCOUNTER 2016-10-17 13:00 | Emergency (ER) | payer OTHER ==
[~2016-10-17] VITALS: Ht 170.2 cm; Wt 112.5 kg
[~2016-10-17 13:00] MED LIST: ADVAIR 500-501 EACH INH; ALBUTEROL2.5 MG/0.5 INH/SOL; COUMADIN2 M1 PO; COUMADIN3 M1 PO; DILTIAZEM 24HR240 MG PO; DIPHENHYDRAMINE25 M4 PO; FEOSOL45 M1 PO; FOSAMAX70 M1 PO; GLUCOTROL XL5 M1 PO; LANTUS SOL100 UNIT/1 SC; LASIX40 M1 PO; LEXAPRO20 M1 PO; LINZESS145 MC1 PO; LISINOPRIL2.5 M1 PO; LYRICA75 M1 PO; Melatonin PO; NOVOLOG FL100 UNIT/1 SQ; OXYCODONE HCL5 M1 PO; OXYCONTIN20 M1 PO; PREDNISONE20 M1 PO; PROAIR HFA8.5 GM INH; PROTONIX40 M3 PO; QUETIAPINE FUMA25 M1 PO; RISPERDAL0.25 M1 PO; SINGULAIR10 M1 PO; SYNTHROID200 MCG PO; SYNTHROID50 MCG PO; VITAMIN D250000 UNIT PO; XANAX1 M1 PO; XANAX2 M1 PO; ZOCOR20 M1 PO
--- NOTE | 2016-10-17 14:04 | RADIOLOGY REPORT ---
EXAMINATION: XR FINGER, LEFT CLINICAL INFORMATION: This is a 65-year-old female with left ring finger pain and swelling. COMPARISON: None TECHNIQUE: Three views of the left fourth digit. FINDINGS: There is soft tissue swelling surrounding the PIP joint of the fourth digit on the left hand. The patient's metallic ring appears surrounding the proximal phalanx of the fourth digit. No foreign body is seen in the subcutaneous tissues. There is an impacted fracture of the distal aspect of the middle phalanx with volar angulation. The fracture does not extend into the joint space. There is minimal osteoarthritic change with subchondral cysts, joint space narrowing and subchondral sclerosis involving the first carpal-metacarpal joint. This critical result was communicated directly by telephone to Dr. Arellano at 1400 hrs on 10/17/2016 and the content and urgency of the communication was understood. IMPRESSION: 1. There is an impacted fracture of the distal aspect of the middle phalanx of the fourth digit on the left hand.
[2016-10-17] MEDS ORDERED: MELATONIN10 M2 PO (14:32)
--- NOTE | 2016-10-17 14:46 | ED HAND/WRIST INJURY COMPLAINT ---
History of Present Illness General Chief Complaint: Hand or Wrist Injury Stated Complaint: 4TH FINGER PAIN Source: patient Exam Limitations: no limitations Vital Signs & Intake/Output Vital Signs & Intake/Output Vital Signs Date Time Temp Pulse Resp B/P Pulse O2 O2 Flow FiO2 Ox Delivery Rate 10/17 1504 62 18 121/72 99 Room Air 10/17 1306 97.1 70 18 115/87 98 Room Air Allergies Coded Allergies: amoxicillin (From AUGMENTIN) (Severe, throat chocking 09/12/16) clavulanic acid (From AUGMENTIN) (Severe, throat chocking 09/12/16) Reconcile Medications Albuterol Sulfate (Proair Hfa) 90 MCG HFA.AER.AD 2 PUF INH Q4-6 PRN PRN ASTHMA (Reported) Alendronate Sodium (Fosamax) 70 MG TABLET 1 TAB PO QW OSTEOPOROSIS (Reported) in the morning, at least 30 minutes before the first food, beverage, or medication of the day Alprazolam (Xanax) 1 MG TABLET 1 MG PO TIDPRN ANXIETY TAKE UP TO 3 TIMES DAILY NEEDED FOR ANXIETY. Diltiazem HCl (Diltiazem 24HR ER) 240 MG CAP.ER.24H 1 CAP PO DAILY CARDIAC ( Reported) Diphenhydramine HCl 25 MG CAPSULE 25 MG PO AT BEDTIME NEEDED PRN INSOMNIA Ergocalciferol (Vitamin D2) (Vitamin D2) 50,000 UNIT CAPSULE 1 CAP PO QW SUPPLEMENT (Reported) Escitalopram Oxalate (Lexapro) 20 MG TABLET 20 MG PO DAILY DEPRESSION AND ANXIETY Fluticasone/Salmeterol (Advair 500-50 Diskus) 500 MCG-50 MCG/DOSE BLST.W.DEV 1 PUF INH BID ASTHMA (Reported) Furosemide (Lasix) 40 MG TABLET 1 TAB PO DAILY CARDIAC (Reported) Glipizide (Glucotrol XL) 5 MG TAB.ER.24 1 TAB PO BID DIABETES (Reported) Hydrocodone/Acetaminophen ([place] 5-325 Tablet) 5 MG-325 MG TABLET 1-2 TAB PO Q4-6 PRN PRN PAIN Insulin Aspart, Recombinant (Novolog Flexpen) 100 UNIT/ML INSULN.PEN 6 UNITS SQ QAC DIABETES (Reported) Insulin Glargine,Hum.rec.anlog (Lantus Solostar) 100 UNIT/ML (3 ML) INSULN.PEN 15 UNIT SC 0800 DIABETES (Reported) Insulin Glargine,Hum.rec.anlog (Lantus Solostar) 100 UNIT/ML (3 ML) INSULN.PEN 10 UNITS SC NIGHTLY DIABETES (Reported) Iron,Carbonyl (Feosol) (Unknown Strength) TABLET 325 MG PO DAILY SUPPLEMENT ( Reported) Levothyroxine Sodium (Synthroid) 200 MCG TABLET 0.2 MG PO DAILY AC THYROID Linaclotide (Linzess) 145 MCG CAPSULE 1 CAP PO DAILY CONSTIPATION (Reported) Lisinopril 5 MG TABLET 1 TAB PO DAILY CARDIAC (Reported) Melatonin 10 MG TABLET 1 TAB PO QPM PRN SLEEP (Reported) [Melatonin] 10 MG TAB 10 MG PO AT BEDTIME SLEEP Montelukast Sodium (Singulair) 10 MG TABLET 1 TAB PO DAILY ASTHMA (Reported) Oxycodone HCl 5 MG TABLET 15 MG PO Q6H PAIN (Reported) Pantoprazole Sodium (Protonix) 40 MG TABLET.DR 1 TAB PO DAILY STOMACH ( Reported) Prednisone 5 MG TABLET 15 MG PO DAILY ASTHMA (Reported) Pregabalin (Lyrica) 75 MG CAPSULE 1 CAP PO TID PAIN (Reported) Quetiapine Fumarate 25 MG TABLET 25 MG PO AT BEDTIME CLEAR THOUGHTS AND SLEEP Simvastatin (Zocor*) 20 MG TABLET 1 TAB PO QPM HPL (Reported) Valacyclovir Hydrochloride (Valtrex) 500 MG TABLET 1 TAB PO DAILY COLD SORE Warfarin Sodium (Coumadin) 3 MG TABLET 3 MG PO DAILY AFIB Triage Note: STATES THAT SATURDAY HER L RING FINGER WAS BENT BACKWARDS, PT NOTED WITH SWELLING AND BRUISING TO THE AREA. Triage Nurses Notes Reviewed? yes Occurred: 3 days ago Duration: day(s): (3) Timing: no prior history Injury Environment: home Severity: moderate Severity Numbers: 7 Pain/Injury Location: Left: 4th finger. Context: crush Method of Injury: direct blow Modifying Factors: Worsens With: movement. Associated Symptoms: swelling HPI: Patient is a 65-year-old female presenting to the emergency department with chief complaint of left ring finger pain, swelling and bruising worsening opacities. She reports that she jammed it. Pain is worsened movement currently moderate. Denies taking anything for pain. Denies numbness or tingling. Denies other injuries. She does take lots of prednisone for her lung issues. (FLORENCE MURILLO) Past History Travel History Traveled to [place] past 21 day No Medical History Any Pertinent Medical History? 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 No (FLORENCE MURILLO) Review of Systems Review of Systems Constitutional: Reports: no symptoms. Comments Review of systems: See HPI, All other systems negative. Constitutional, no chills fever or weight loss HEENT: No visual changes no sore throat no congestion Cardiovascular: No chest pain ,palpitation Skin, no jaundice no rashes Respiratory: No dyspnea cough sputum or hemoptysis GI: No nausea no vomiting Muscle skeletal: no back pain, no neck pain, Neurologic: No numbness Psych: No stress anxiety Immunology: No splenectomy or history of AIDS (FLORENCE MURILLO) Physical Exam Physical Exam General Appearance: well developed/nourished, no apparent distress, alert, awake , comfortable Hand Left: 4th finger Hand Right: normal inspection, normal range of motion Comments: Well-developed well-nourished person in no acute distress HEENT: Pupils equally round and reactive to light and accommodation. Nose is atraumatic. Neck: Normal inspection Cardiovascular: Regular rate and rhythms no murmurs rubs or gallops, normal JVP Respiratory: No respiratory distress. Extremity: Tender to palpation over the entire left ring finger, limited range of motion secondary to pain. Pain specifically over the PIP joint and the distal part of the phalanx. Ecchymosis present. Capillary refill is intact in upper extremities. Radial pulses are 2+ bilaterally. Neuro: Alert oriented x3, motor sensory normal Skin: No appreciable rash on exposed skin, skin is warm and dry. Psych: Mood and affect is normal, memory and judgment is normal. (FLORENCE MURILLO) Progress Differential Diagnosis: contusion, dislocation, fracture, sprain Plan of Care: Ring was removed. Splint placed. Patient declined pain medication here. Diagnostic Imaging: Viewed by Me: Radiology Read. Discussed w/RAD: Radiology Read. Radiology Impression: ATIENT: JAYESH DELATORRE PRESENT AGE: 65 PATIENT ACCOUNT NO: [id number] : 52 LOCATION: [facility] ORDERING PHYSICIAN: EZEKIEL CHIU DO SERVICE DATE: 10/17/16 EXAM TYPE: RAD - XRY-FINGERS, LEFT EXAMINATION: XR FINGER, LEFT CLINICAL INFORMATION: This is a 65-year-old female with left ring finger pain and swelling. COMPARISON : None TECHNIQUE: Three views of the left fourth digit. FINDINGS: There is soft tissue swelling surrounding the PIP joint of the fourth digit on the left hand. The patient's metallic ring appears surrounding the proximal phalanx of the fourth digit. No foreign body is seen in the subcutaneous tissues. There is an impacted fracture of the distal aspect of the middle phalanx with volar angulation. The fracture does not extend into the joint space. There is minimal osteoarthritic change with subchondral cysts, joint space narrowing and subchondral sclerosis involving the first carpal-metacarpal joint. This critical result was communicated directly by telephone to Dr. Chiu at 1400 hrs on 2016 and the content and urgency of the communication was understood. IMPRESSION : 1. There is an impacted fracture of the distal aspect of the middle phalanx of the fourth digit on the left hand. DICTATED BY: AMY BRUNO MD DATE/TIME DICTATED:10/17/161352 ROLLING ATTENDANT:FLORESITA DATE/TIME TRANSCRIBED:1352 CONFIDENTIAL, DO NOT COPY WITHOUT APPROPRIATE AUTHORIZATION. < Electronically signed in Other Vendor System> SIGNED BY: AMY BRUNO MD 10/17/16 5169 (FLORENCE MURILLO) Departure Departure Time of Disposition: 1446 Disposition: HOME OR SELF CARE Condition: Stable Clinical Impression Primary Impression: Finger fracture Qualifiers: Encounter type: initial encounter Finger: ring finger Fracture type : closed Phalanx: distal Fracture alignment: nondisplaced Laterality: left Qualified Code: S62.665A - Nondisplaced fracture of distal phalanx of left ring finger, initial encounter for closed fracture Referrals: BROOKLYNN WALLACE (PCP/Family) CHARANJIT BRAGA,BRANDYN Armstrong Additional Instructions: Follow-up with orthopedics call to make appointment. Wear splint. Ice several times a day. Take Motrin and Tylenol [id number] for pain. Departure Forms: Customer Survey General Discharge Information Prescriptions: Current Visit Scripts Valacyclovir Hydrochloride (Valtrex) 1 TAB PO DAILY #6 TAB Hydrocodone/Acetaminophen ([place] 5-325 Tablet) 1-2 TAB PO Q4-6 PRN PRN PAIN #10 TAB (FLORENCE MURILLO) PA/HEAD OF CONSERVATION Co-Sign Statement Statement: ED Attending supervision documentation- [] I saw and evaluated the patient. I have also reviewed all the pertinent lab results and diagnostic results. I agree with the findings and the plan of care as documented in the PA's/HEAD OF CONSERVATION's documentation. [x] I have reviewed the ED Record and agree with the PA's/HEAD OF CONSERVATION's documentation. [] Additions or exceptions (if any) to the PAs/HEAD OF CONSERVATION's note and plan are summarized below: [] (EZEKIEL CHIU DO) Procedures Splinting Location: left ring finger Manual Alignment Performed: No Pre-Made Type: metal Splint: finger Splint Applied By: splint applied by me Pre-Proc Neuro Vasc Exam: normal Post-Proc Neuro Vasc Exam: normal Progress: Patient tolerated procedure well. Additional Procedures Additional Procedures: Ring removal Progress: Ring was removed with ring cutter. Patient tolerated procedure well. (FLORENCE MURILLO)
[2016-10-17] MEDS ORDERED: NORCO 5-325 TA1 EACH PO (15:03)
[2016-10-17] MEDS ORDERED: VALTREX500 M1 PO (15:03)
[2016-10-17 15:04] VITALS: BP 121/72
== END 2016-10-17 15:06 ==
LOC: ERH 13:00
DX: S62.625A Displaced fracture of middle phalanx of left ring finger, initial encounter for closed fracture (principal); W23.0XXA Caught, crushed, jammed, or pinched between moving objects, initial encounter
CPT/HCPCS: 73140-LT

== ENCOUNTER 2016-11-07 14:49 | Emergency (ER) | payer OTHER ==
[~2016-11-07] VITALS: Ht 170.2 cm; Wt 113.4 kg
[~2016-11-07 14:49] MED LIST changes: +MELATONIN10 M2 PO; +NORCO 5-325 TA1 EACH PO; +VALTREX500 M1 PO
--- NOTE | 2016-11-07 15:45 | ED INFLUENZA/URI COMPLAINT ---
History of Present Illness General Chief Complaint: Upper Respiratory Sx/Fever Stated Complaint: SOB COUGH FEVER BODYACHES Source: patient Exam Limitations: no limitations Vital Signs & Intake/Output Vital Signs & Intake/Output Vital Signs Date Time Temp Pulse Resp B/P Pulse O2 O2 Flow FiO2 Ox Delivery Rate 11/07 1615 96 11/07 1505 97.1 95 18 139/87 96 Room Air Allergies Coded Allergies: amoxicillin (From AUGMENTIN) (Severe, throat chocking 09/12/16) clavulanic acid (From AUGMENTIN) (Severe, throat chocking 09/12/16) Reconcile Medications Albuterol Sulfate (Proair Hfa) 90 MCG HFA.AER.AD 2 PUF INH Q4-6 PRN PRN ASTHMA (Reported) Alendronate Sodium (Fosamax) 70 MG TABLET 1 TAB PO QW OSTEOPOROSIS (Reported) in the morning, at least 30 minutes before the first food, beverage, or medication of the day Alprazolam (Xanax) 1 MG TABLET 1 MG PO TIDPRN ANXIETY TAKE UP TO 3 TIMES DAILY NEEDED FOR ANXIETY. Azithromycin (Zithromax) 250 MG TABLET 1 DP PO D BRONCHITIS Diltiazem HCl (Diltiazem 24HR ER) 240 MG CAP.ER.24H 1 CAP PO DAILY CARDIAC ( Reported) Diphenhydramine HCl 25 MG CAPSULE 25 MG PO AT BEDTIME NEEDED PRN INSOMNIA Ergocalciferol (Vitamin D2) (Vitamin D2) 50,000 UNIT CAPSULE 1 CAP PO QW SUPPLEMENT (Reported) Escitalopram Oxalate (Lexapro) 20 MG TABLET 20 MG PO DAILY DEPRESSION AND ANXIETY Fluticasone/Salmeterol (Advair 500-50 Diskus) 500 MCG-50 MCG/DOSE BLST.W.DEV 1 PUF INH BID ASTHMA (Reported) Furosemide (Lasix) 40 MG TABLET 1 TAB PO DAILY CARDIAC (Reported) Glipizide (Glucotrol XL) 5 MG TAB.ER.24 1 TAB PO BID DIABETES (Reported) Hydrocodone/Acetaminophen ([place] 5-325 Tablet) 5 MG-325 MG TABLET 1-2 TAB PO Q4-6 PRN PRN PAIN Insulin Aspart, Recombinant (Novolog Flexpen) 100 UNIT/ML INSULN.PEN 6 UNITS SQ QAC DIABETES (Reported) Insulin Glargine,Hum.rec.anlog (Lantus Solostar) 100 UNIT/ML (3 ML) INSULN.PEN 15 UNIT SC 0800 DIABETES (Reported) Insulin Glargine,Hum.rec.anlog (Lantus Solostar) 100 UNIT/ML (3 ML) INSULN.PEN 10 UNITS SC NIGHTLY DIABETES (Reported) Iron,Carbonyl (Feosol) (Unknown Strength) TABLET 325 MG PO DAILY SUPPLEMENT ( Reported) Levothyroxine Sodium (Synthroid) 200 MCG TABLET 0.2 MG PO DAILY AC THYROID Linaclotide (Linzess) 145 MCG CAPSULE 1 CAP PO DAILY CONSTIPATION (Reported) Lisinopril 5 MG TABLET 1 TAB PO DAILY CARDIAC (Reported) Melatonin 10 MG TABLET 1 TAB PO QPM PRN SLEEP (Reported) [Melatonin] 10 MG TAB 10 MG PO AT BEDTIME SLEEP Methylprednisolone. (Medrol) 4 MG TAB.DS.PK 1 DP PO AD INFLAMMATION 6 on day 1 then reduce by one tablet daily until gone Montelukast Sodium (Singulair) 10 MG TABLET 1 TAB PO DAILY ASTHMA (Reported) Oxycodone HCl 5 MG TABLET 15 MG PO Q6H PAIN (Reported) Pantoprazole Sodium (Protonix) 40 MG TABLET.DR 1 TAB PO DAILY STOMACH ( Reported) Prednisone 5 MG TABLET 15 MG PO DAILY ASTHMA (Reported) Pregabalin (Lyrica) 75 MG CAPSULE 1 CAP PO TID PAIN (Reported) Quetiapine Fumarate 25 MG TABLET 25 MG PO AT BEDTIME CLEAR THOUGHTS AND SLEEP Robitussin AC (Guaifenesin-Codeine Syrup) 200 MG-20 MG/10 ML LIQUID 10 ML PO Q6 PRN COUGH Simvastatin (Zocor*) 20 MG TABLET 1 TAB PO QPM HPL (Reported) Valacyclovir Hydrochloride (Valtrex) 500 MG TABLET 1 TAB PO DAILY COLD SORE Warfarin Sodium (Coumadin) 3 MG TABLET 3 MG PO DAILY AFIB Triage Note: PT HERE WITH COUGH FEVER AND BODYACHES SINCE SATURDAY. PT DENIES FEVER BUT SHE IS COUGHING UP GREEN SPUTUM. PT CALLED PCP FOR ABX AND SHE WOULD NOT GIVEN HER ABX WITHOUT SEEING HER. Triage Nurses Notes Reviewed? yes Onset: Abrupt Duration: day(s): (2-3) HPI: 65 year old female history significant for asthma, pneumonia, collapsed lung who presents with 2-3 days of cough, body aches, green sputum. No relief with albuterol inhaler or nebulizer. Denies high fever but c/o chills. Past History Travel History Traveled to [place] past 21 day No Medical History Any Pertinent Medical History? 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 No Review of Systems Review of Systems Constitutional: Reports: chills. Denies: fever. EENTM: Reports: no symptoms. Respiratory: Reports: cough, short of breath, sputum production. Cardiovascular: Denies: edema, palpitations. GI: Denies: abdominal pain. Genitourinary: Reports: no symptoms. Musculoskeletal: Reports: muscle pain. Skin: Reports: no symptoms. Neurological/Psychological: Reports: no symptoms. Hematologic/Endocrine: Denies: bruising, bleeding. Immunologic/Allergic: Denies: splenectomy. All Other Systems: Reviewed and Negative Physical Exam Physical Exam General Appearance: well developed/nourished, alert, awake, moderate distress Head: atraumatic, normal appearance Eyes: Bilateral: normal appearance, PERRL, EOMI. Ears, Nose, Throat: normal ENT inspection, moist mucous membrane, hearing grossly normal Neck: normal inspection, supple, full range of motion Respiratory: decreased breath sounds, wheezing, respiratory distress Cardiovascular: regular rate/rhythm Peripheral Pulses: 2+ radial (R), 2+ radial (L) Gastrointestinal: normal bowel sounds, soft, non-tender Extremities: normal inspection, normal range of motion, no edema Neurologic/Psych: no motor/sensory deficits, awake, alert, oriented x 3 Skin: intact, normal color, warm/dry Core Measures Severe Sepsis Present: No Septic Shock Present: No Progress Differential Diagnosis: influenza, pneumonia, BRONCHITIS, ASTHMA EXACERBATION Plan of Care: Orders Procedure Date/time Status RT ED ORDERS 11/07 1701 Active RAPID VIRAL INFLUENZA A 11/07 1558 Complete RT ED ORDERS 11/07 1554 Active Current Medications Sig/Pierce Start time Last Medication Dose Stop Time Status Admin Azithromycin 500 MG ONCE ONE 11/07 1744 UNVr (Zithromax) 11/07 174 Microbiology 11/07 1636 NASOPHARYN: Influenza Virus A & B Rapid Smear - COMP PATIENT IMPROVED AFTER TWO TREATMENTS, PREDNISONE. CXR NEGATIVE. FLU SWAB NEGATIVE. FIRST DOSE OF AZITHROMYCIN GIVEN. (MING BRAGA,JONO) Diagnostic Imaging: Viewed by Me: Radiology Read. Discussed w/RAD: Radiology Read. CXR Impression: PATIENT: JAYESH DELATORRE PRESENT AGE : 65 PATIENT ACCOUNT NO: [id number] : 52 LOCATION: [facility] ORDERING PHYSICIAN: JONO LAI MD SERVICE DATE: 11/07/16-1553 EXAM TYPE: RAD - XRY -CHEST XRAY, PA AND LATERAL EXAMINATION: XR CHEST CLINICAL INFORMATION: Cough, green sputum production COMPARISON: None TECHNIQUE: 2 views of the chest were obtained. FINDINGS: Jewelry present. Tortuosity of the aorta. Moderate cardiac enlargement with straightening of the left heart border and distention of the azygos. There is no hilar mass. The central markings are prominent. There is no dense area of consolidation. There is flattening of the diaphragm. Slightly widened AP diameter of the chest. No pleural fluid or pneumothorax. IMPRESSION: Moderate cardiac enlargement possibly involving the left atrium. Central vascular prominence without focal pneumonia or alveolar edema. DICTATED BY: ANASTASIYA LOPEZ MD DATE/TIME DICTATED:11/07/161741 ARTIFICIAL FLOWERS DYER:FLORESITA DATE/TIME TRANSCRIBED:11/07/161741 CONFIDENTIAL, DO NOT COPY WITHOUT APPROPRIATE AUTHORIZATION. <Electronically signed in Other Vendor System> SIGNED BY: ANASTASIYA LOPEZ MD 11/07/161746 Initial ED EKG: none Departure Departure Time of Disposition: 1748 Disposition: HOME OR SELF CARE Condition: Stable Clinical Impression Primary Impression: Bronchitis Referrals: BROOKLYNN WALLACE (PCP/Family) Additional Instructions: Take an extra dose of your lasix this evening. Take the azithromycin, prednisone and Robitussin-AC as directed. Please follow-up with your outpatient echocardiogram with your police stenographer. Return to the ER for any changing or worsening symptoms. Departure Forms: Customer Survey General Discharge Information Prescriptions: Current Visit Scripts Methylprednisolone. (Medrol) 1 DP PO AD #1 DP 6 on day 1 then reduce by one tablet daily until gone Azithromycin (Zithromax) 1 DP PO D #4 TAB Robitussin AC (Guaifenesin-Codeine Syrup) 10 ML PO Q6 PRN COUGH #150 ML
[2016-11-07] MEDS ORDERED: MEDROL4 M2 PO (17:43)
[2016-11-07] MEDS ORDERED: ZITHROMAX250 M2 PO (17:43)
[2016-11-07] MEDS ORDERED: GUAIFENESIN-COD10 ML PO (17:43)
--- NOTE | 2016-11-07 17:47 | RADIOLOGY REPORT ---
EXAMINATION: XR CHEST CLINICAL INFORMATION: Cough, green sputum production COMPARISON: None TECHNIQUE: 2 views of the chest were obtained. FINDINGS: Jewelry present. Tortuosity of the aorta. Moderate cardiac enlargement with straightening of the left heart border and distention of the azygos. There is no hilar mass. The central markings are prominent. There is no dense area of consolidation. There is flattening of the diaphragm. Slightly widened AP diameter of the chest. No pleural fluid or pneumothorax. IMPRESSION: Moderate cardiac enlargement possibly involving the left atrium. Central vascular prominence without focal pneumonia or alveolar edema.
[2016-11-07 17:59] VITALS: BP 155/94
== END 2016-11-07 18:09 ==
LOC: ERH 14:49
DX: J40 Bronchitis, not specified as acute or chronic (principal); R50.9 Fever, unspecified
CPT/HCPCS: 1263; 87804; 87804-59

== ENCOUNTER 2016-11-21 10:35 | Inpatient (IN) | payer OTHER ==
[~2016-11-21] VITALS: Ht 170.2 cm; Wt 109.0 kg
[~2016-11-21 10:35] MED LIST changes: +GUAIFENESIN-COD10 ML PO; +MEDROL4 M2 PO; +ZITHROMAX250 M2 PO
[2016-11-21] MEDS ORDERED: GLIPIZIDE ER10 M1 PO (10:48)
[2016-11-21] MEDS ORDERED: LEVOTHYROXINE200 MC1 PO (10:52)
[2016-11-21] MEDS ORDERED: SYNTHROID200 MCG PO (10:52)
[2016-11-21] MEDS ORDERED: ALBUTEROL2.5 MG/3 M INH/SOL (10:53)
[2016-11-21] MEDS ORDERED: COUMADIN2 M1 PO (11:02)
[2016-11-21] MEDS ORDERED: COUMADIN4 M1 PO (11:02)
--- NOTE | 2016-11-21 11:26 | ED DYSPNEA/ASTHMA COMPLAINT ---
History of Present Illness General Chief Complaint: Dyspnea (COPD, CHF, Other) Stated Complaint: BIBA SOB Source: patient, family, old records, EMS Exam Limitations: no limitations Vital Signs & Intake/Output Vital Signs & Intake/Output Vital Signs Date Time Temp Pulse Resp B/P Pulse O2 O2 Flow FiO2 Ox Delivery Rate 11/21 1320 88 18 113/63 94 Room Air 11/21 1152 94 Room Air 11/21 1043 98.6 95 20 150/76 96 Room Air Allergies Coded Allergies: amoxicillin (From AUGMENTIN) (Severe, throat chocking 09/12/16) clavulanic acid (From AUGMENTIN) (Severe, throat chocking 09/12/16) Reconcile Medications Albuterol Sulfate (Proair Hfa) 90 MCG HFA.AER.AD 2 PUF INH Q4-6 PRN PRN ASTHMA (Reported) Albuterol Sulfate 2.5 MG/3 ML (0.083 %) VIAL.NEB 1 Vial INH/NISH Q6P PRN SHORTNESS OF BREATH (Reported) Alendronate Sodium (Fosamax) 70 MG TABLET 1 TAB PO QW OSTEOPOROSIS (Reported) in the morning, at least 30 minutes before the first food, beverage, or medication of the day Alprazolam (Xanax) 1 MG TABLET 1 MG PO TIDPRN ANXIETY TAKE UP TO 3 TIMES DAILY NEEDED FOR ANXIETY. Diltiazem HCl (Diltiazem 24HR ER) 240 MG CAP.ER.24H 1 CAP PO DAILY CARDIAC ( Reported) Ergocalciferol (Vitamin D2) (Vitamin D2) 50,000 UNIT CAPSULE 1 CAP PO QW SUPPLEMENT (Reported) Escitalopram Oxalate (Lexapro) 20 MG TABLET 20 MG PO DAILY DEPRESSION AND ANXIETY Fluticasone/Salmeterol (Advair 500-50 Diskus) 500 MCG-50 MCG/DOSE BLST.W.DEV 1 PUF INH BID ASTHMA (Reported) Furosemide (Lasix) 40 MG TABLET 1 TAB PO DAILY CARDIAC (Reported) Glipizide (Glipizide ER) 10 MG TAB.ER.24 1 TAB PO DAILY DIABETES (Reported) Insulin Aspart, Recombinant (Novolog Flexpen) 100 UNIT/ML INSULN.PEN 6 UNITS SQ QAC DIABETES (Reported) Insulin Glargine,Hum.rec.anlog (Lantus Solostar) 100 UNIT/ML (3 ML) INSULN.PEN 25 UNIT SC 0800 DIABETES (Reported) Insulin Glargine,Hum.rec.anlog (Lantus Solostar) 100 UNIT/ML (3 ML) INSULN.PEN 15 UNITS SC QPM DIABETES (Reported) Iron,Carbonyl (Feosol) (Unknown Strength) TABLET 325 MG PO DAILY SUPPLEMENT ( Reported) Levothyroxine Sodium (Synthroid) 200 MCG TABLET 1 TAB PO QW THYROID (Reported ) Levothyroxine Sodium 200 MCG TABLET 1 TAB PO DAILY AC THYROID (Reported) Linaclotide (Linzess) 145 MCG CAPSULE 1 CAP PO DAILY CONSTIPATION (Reported) Lisinopril 2.5 MG TABLET 1 TAB PO DAILY HEART (Reported) Montelukast Sodium (Singulair) 10 MG TABLET 1 TAB PO DAILY ASTHMA (Reported) Pantoprazole Sodium (Protonix) 40 MG TABLET.DR 1 TAB PO DAILY STOMACH ( Reported) Prednisone 20 MG TABLET 1 TAB PO DAILY ASTHMA (Reported) Pregabalin (Lyrica) 75 MG CAPSULE 1 CAP PO TID PAIN (Reported) Quetiapine Fumarate 25 MG TABLET 25 MG PO AT BEDTIME CLEAR THOUGHTS AND SLEEP Simvastatin (Zocor*) 20 MG TABLET 1 TAB PO QPM HPL (Reported) Warfarin Sodium (Coumadin) 4 MG TABLET 1 TAB PO SuWeFr BLOOD THINNER ( Reported) Warfarin Sodium (Coumadin) 2 MG TABLET 1 TAB PO MoTuThSa BLOOD THINNER ( Reported) Core Measure Meds Pre-Hospital coumadin Triage Note: PT BIBA FROM HOME. C/O SOB AND PRODUCTIVE COUGH WITH GREENISH SPUTUM X 2-3 DAYS. STATES NEB TX AT HOME INEFFECTIVE. NEB TX EN ROUTE BY EMS, PT STATES SHE FEELS A LITTLE BETTER BUT IT USUALLY ONLY HELPS X 15 MINUTES. PT IS INSPIRATORY AND EXPIRATORY WHEEZE B/L, LUNGS DECREASED IN LL. MEDICAL STUDENT AT BEDSIDE FOR EVALUATION Triage Nurses Notes Reviewed? yes Onset: Last week Duration: day(s):, continues in ED, getting worse, waxing and waning Timing: recent history Severity: severe Activities at Onset: rest Prior Episodes/Possible Cause: illness exposure Modifying Factors: Improves With: rest. Worsens With: movement. Associated Symptoms: cough, wheezing, weakness LMP (ages 10-50): post menopausal : No Patient currently breastfeeds: No HPI: 2 weeks prior to admission patient had asthma exacerbation seen in the emergency department discharged home after treatment. Several days prior to admission she complains of productive cough of green sputum increased wheezing shortness of breath dyspnea on exertion and sharp chest pain with cough. She denies fever chills nausea vomiting diarrhea abdominal pain headache dysuria rash bleeding. Past History Travel History Traveled to [place] past 21 day No Medical History Any Pertinent Medical History? 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 No Review of Systems Review of Systems Constitutional: Reports: see HPI, weakness. EENTM: Reports: no symptoms. Respiratory: Reports: see HPI, cough, sputum production, wheezing. Cardiovascular: Reports: no symptoms. GI: Reports: no symptoms. Genitourinary: Reports: no symptoms. Musculoskeletal: Reports: no symptoms. Skin: Reports: no symptoms. Neurological/Psychological: Reports: no symptoms. Hematologic/Endocrine: Reports: no symptoms. Immunologic/Allergic: Reports: no symptoms. All Other Systems: Reviewed and Negative Physical Exam Physical Exam General Appearance: well developed/nourished, alert, awake, anxious, moderate distress, obese Head: atraumatic, normal appearance Eyes: Bilateral: normal appearance, PERRL, EOMI. Ears, Nose, Throat: normal pharynx, normal ENT inspection Neck: normal inspection, supple, full range of motion, no midline tenderness Respiratory: chest non-tender, decreased breath sounds, rhonchi, wheezing Cardiovascular: normal peripheral pulses, irregularly irregular, norml femoral pulses equa Peripheral Pulses: 4+ carotid (R), 4+ carotid (L) Gastrointestinal: normal bowel sounds, soft, non-tender, no organomegaly Extremities: normal inspection, normal capillary refill, normal range of motion, no edema Neurologic/Psych: no motor/sensory deficits, awake, alert, oriented x 3, normal gait, normal mood/affect, 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 No Severe Sepsis Present: No Septic Shock Present: No Progress Differential Diagnosis: AMI, bronchitis, CHF, COPD, pneumonia Plan of Care: Orders Procedure Date/time Status CBC WITHOUT DIFFERENTIAL 11/22 599 Active BASIC ELECTROLYTES PLUS BUN&CR 11/22 06 Active Regular Diet 11/21 L Active Pathway - chart 11/21 1347 Active House Staff 11/21 1347 Active Patient Data 11/21 1347 Active Code Status 11/21 1347 Active Patient Data 11/21 1335 Active OXYGEN SETUP (GEN) 11/21 1332 Active Saline Lock 11/21 1332 Active Admit to inpatient 11/21 1332 Active Vital Signs 11/21 1332 Active Activity/Ambulation 11/21 1332 Active Code Status 11/21 1332 Complete Intake & Output 11/21 1148 Active TROPONIN LEVEL 11/21 1107 Complete PROTHROMBIN TIME 11/21 1107 Complete MAGNESIUM 11/21 1107 Complete COMPREHENSIVE METABOLIC PANEL 11/21 1107 Complete CBC WITHOUT DIFFERENTIAL 11/21 1107 Complete B-TYPE NATRIURETIC PEP (BNP) 11/21 1107 Complete EKG 11/21 1107 Active VTE Mechanical Prophylaxis 11/21 UNK Active Current Medications Sig/Pierce Start time Last Medication Dose Stop Time Status Admin Acetaminophen 650 MG Q6P PRN 11/21 1400 AC (Tylenol) Acetaminophen/ 1 TAB Q6P PRN 11/21 1400 AC Hydrocodone Bitart (Vicodin) Oxycodone/ 2 TAB Q6P PRN 11/21 1400 AC Acetaminophen (Percocet) Laboratory Tests 11/21/16 1135: Anion Gap 8, Estimated GFR 56 L, BUN/Creatinine Ratio 20.0, Glucose 94, Calcium 9.5, Magnesium 1.8, Total Bilirubin 0.6, AST 21, ALT 34, Alkaline Phosphatase 60 , Troponin I < 0.01, [id number] Pept 2320 H, Total Protein 6.8, Albumin 3.7, Globulin 3.1, Albumin/Globulin Ratio 1.2, PT 41.4 H, INR 4.00 *H, CBC w Diff NO MAN DIFF REQ, RBC 4.09 L, MCV 85.2, MCH 28.5, RDW 15.3 H, MPV 8.8, Gran % 62.4, Lymphocytes % 26.1, Monocytes % 10.4 H, Eosinophils % 0.6, Basophils % 0.5, Absolute Granulocytes 6.3, Absolute Lymphocytes 2.6, Absolute Monocytes 1.1 H, Absolute Eosinophils 0.1, Absolute Basophils 0.1, PUBS MCHC 33.4 Diagnostic Imaging: Viewed by Me: Radiology Read. Discussed w/RAD: Radiology Read. CXR Impression: no infiltrates, cardiomegaly Initial ED EKG: AFIB, nonspecific ST T wave chg Departure Departure Time of Disposition: 1330 Disposition: STILL A PATIENT Condition: Stable Clinical Impression Primary Impression: Asthma exacerbation Secondary Impressions: Atrial fibrillation Qualifiers: Atrial fibrillation type: chronic Qualified Code: I48.2 - Chronic atrial fibrillation Referrals: BROOKLYNN WALLACE (PCP/Family) Departure Forms: Customer Survey General Discharge Information Admission Note Spoke With: STARLA BRAGA,TOLU Shay Documentation of Exam: Documentation of any treatments & extenuating circumstances including Concerns Regarding Discharge (functional status, medication knowledge or non-compliance, living conditions, etc.) that warrant an admission rather than observation: Supplemental oxygen IV steroids serial beta agonist nebs echocardiogram medication adjustment physical therapy continuing care discharge planning Critical Care Note Critical Care Note Critical Care Time: non-applicable (40)
--- NOTE | 2016-11-21 11:46 | RADIOLOGY REPORT ---
EXAMINATION: XR PORTABLE CHEST CLINICAL INFORMATION: Productive cough. Wheezing. COMPARISON: CXR from 11/07/2016 TECHNIQUE: Portable AP view of the chest was obtained. FINDINGS: Lungs are well expanded and clear. No acute pulmonary consolidation, edema or pleural effusion. Again noted is the moderately enlarged cardiac silhouette and the prominent azygos vein -- suggestive of venous hypertension or increased intravascular fluid volume. There is degenerative subarticular sclerosis and osteophyte formation at the left glenohumeral joint. IMPRESSION: 1. No evidence of pneumonia. 2. Cardiomegaly without acute pulmonary edema or other significant interval change compared to 11/07/2016.
[2016-11-21 11:48] LABS: ABSOLUTE BASOPHIL COUNT 0.1 /CUMM (0.0-0.2); ABSOLUTE EOSINOPHIL COUNT 0.1 /CUMM (0.0-0.7); ABSOLUTE GRANULOCYTE CT 6.3 /CUMM (1.4-6.5); ABSOLUTE LYMPH COUNT 2.6 /CUMM (1.2-3.4); ABSOLUTE MONOCYTE COUNT 1.1 /CUMM (0.10-0.60); BASOPHIL % 0.5 % (0.0-2.0); EOSINOPHIL % 0.6 % (0-5); GRANULOCYTE % 62.4 % (42.2-75.2); HEMATOCRIT 34.8 % (37-47); MEAN CORPUSCULAR HGB 28.5 PG (27.0-31.0); MEAN CORPUSCULAR HGB CONC 33.4 G/DL (33.0-37.0); MEAN CORPUSCULAR VOLUME 85.2 FL (81.0-99.0); MEAN PLATELET VOLUME 8.8 FL (7.4-10.4); PLATELET COUNT 229 /CUMM (130-400); RBC DISTRIBUTION WIDTH 15.3 % (11.5-14.5); RED BLOOD CELL CT 4.09 /CUMM (4.20-5.40); WHITE BLOOD CELL COUNT 10.1 /CUMM (4.8-10.8)
[2016-11-21 12:07] LABS: PT 41.4 SEC (9.4-12.5)
--- NOTE | 2016-11-21 15:15 | History & Physical ---
FLORINDA BRAGA,[facility] 11/21/16 1514: General Information and HPI MD Statement: I have seen and personally examined JAYESH DELATORRE and documented this H&P. The patient is a 65 year old F who presented with a patient stated chief complaint of increased shortness of breath. Source of Information: patient Exam Limitations: no limitations History of Present Illness: This is a 65-year-old lady past medical history of hyperlipidemia, non smoking asthmatic requiring chronic steroid therapy, a remote history of lung collapse due to asthma exacerbation 25 years ago, diabetes type 2, A. fib onanticoagulation, severe depression with recent increased anxiety due to recent life stressors involving of his sons, hypothyroidism, hypertension, presents with three-week history of progressively worsening shortness of breath and cough. Patient reports about 3 weeks ago she developed increased shortness of breath and cough and was seen by her primary care physician and was diagnosed with possible upper respiratory infection, was given azithromycin antibiotic course and Medrol Dosepak which she completed. She reported a minimal interval relief of his symptoms however after 3 days of cough reappeared with increased shortness of breath. Reports that her cough is productive with some yellowish phlegm. Regarding her shortness breath, she reports that recently it has progressed to a point that she has difficulty with minimal ambulation. Other associated symptoms include chest tightness. She denies any fever,chills, sick contact, occupational exposure, melinda pain/palptitaion,dizziness, focal neurologcal deficit, musculoskeletal pain,abdominal pain or dysuria. Regaridng her recent increased in anxiety, pt reports feelling increaingly depressed especially when he think about the of her sons. She is in on an IOP after hospitalization at [facility] for SI. During interview she paasively commenting about not worth living due to loss of her sons, but did not state that she has a plan to commit suicide. At baseline, pt is on advair and albuterol for asthma, does not know her baseline peak flow measurement and reports last exercabation to be about 9 months ago. Allergies/Medications Allergies: Coded Allergies: amoxicillin (From AUGMENTIN) (Severe, throat chocking 09/12/16) clavulanic acid (From AUGMENTIN) (Severe, throat chocking 09/12/16) Home Med list Albuterol Sulfate (Proair Hfa) 90 MCG HFA.AER.AD 2 PUF INH Q4-6 PRN PRN ASTHMA (Reported) Albuterol Sulfate 2.5 MG/3 ML (0.083 %) VIAL.NEB 1 Vial INH/NISH Q6P PRN SHORTNESS OF BREATH (Reported) Alendronate Sodium (Fosamax) 70 MG TABLET 1 TAB PO QW OSTEOPOROSIS (Reported) in the morning, at least 30 minutes before the first food, beverage, or medication of the day Alprazolam (Xanax) 1 MG TABLET 1 MG PO TIDPRN ANXIETY TAKE UP TO 3 TIMES DAILY NEEDED FOR ANXIETY. Aripiprazole (Abilify) 5 MG TABLET 1 TAB PO AT BEDTIME DEPRESSION (Reported) Aspirin (Aspirin*) 325 MG TABLET 1 TAB PO DAILY HEART HEALTH (Reported) Diltiazem HCl (Diltiazem 24HR ER) 240 MG CAP.ER.24H 1 CAP PO DAILY CARDIAC ( Reported) Ergocalciferol (Vitamin D2) (Vitamin D2) 50,000 UNIT CAPSULE 1 CAP PO QW SUPPLEMENT (Reported) Escitalopram Oxalate (Lexapro) 20 MG TABLET 20 MG PO DAILY DEPRESSION AND ANXIETY Fluticasone/Salmeterol (Advair 500-50 Diskus) 500 MCG-50 MCG/DOSE BLST.W.DEV 1 PUF INH BID ASTHMA (Reported) Furosemide (Lasix) 40 MG TABLET 1 TAB PO DAILY CARDIAC (Reported) Glipizide (Glipizide ER) 10 MG TAB.ER.24 1 TAB PO DAILY DIABETES (Reported) Insulin Aspart, Recombinant (Novolog Flexpen) 100 UNIT/ML INSULN.PEN 6 UNITS SQ QAC DIABETES (Reported) Insulin Glargine,Hum.rec.anlog (Lantus Solostar) 100 UNIT/ML (3 ML) INSULN.PEN 25 UNIT SC 0800 DIABETES (Reported) Insulin Glargine,Hum.rec.anlog (Lantus Solostar) 100 UNIT/ML (3 ML) INSULN.PEN 15 UNITS SC QPM DIABETES (Reported) Iron,Carbonyl (Feosol) (Unknown Strength) TABLET 325 MG PO DAILY SUPPLEMENT ( Reported) Levothyroxine Sodium (Synthroid) 200 MCG TABLET 1 TAB PO QW THYROID (Reported ) Levothyroxine Sodium 200 MCG TABLET 1 TAB PO DAILY AC THYROID (Reported) Linaclotide (Linzess) 145 MCG CAPSULE 1 CAP PO DAILY CONSTIPATION (Reported) Lisinopril 2.5 MG TABLET 1 TAB PO DAILY HEART (Reported) Montelukast Sodium (Singulair) 10 MG TABLET 1 TAB PO DAILY ASTHMA (Reported) Pantoprazole Sodium (Protonix) 40 MG TABLET.DR 1 TAB PO DAILY STOMACH ( Reported) Prednisone 20 MG TABLET 1 TAB PO DAILY ASTHMA (Reported) Pregabalin (Lyrica) 75 MG CAPSULE 1 CAP PO TID PAIN (Reported) Simvastatin (Zocor*) 20 MG TABLET 1 TAB PO QPM HPL (Reported) Warfarin Sodium (Coumadin) 4 MG TABLET 1 TAB PO SuWeFr BLOOD THINNER ( Reported) Warfarin Sodium (Coumadin) 2 MG TABLET 1 TAB PO MoTuThSa BLOOD THINNER ( Reported) Past History Travel History Traveled to [place] past 21 day No Medical History Neurological: NONE EENT: NONE, allergies Cardiovascular: AFIB Respiratory: asthma Gastrointestinal: constipation, GERD Hepatic: NONE Renal: NONE, chronic kidney disease Musculoskeletal: chronic back pain, osteoporosis Psychiatric: anxiety, depression Endocrine: diabetes, hypothyroidism Blood Disorders: anemia Cancer(s): NONE 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 unknown Power of Job Press Feeder/HCP? unknown Functional Ability ADLs Independent: dressing, eating, toileting, bathing. Ambulation: independent IADLs Independent: shopping, housework, finances, food prep, telephone, transportation , medication admin. Review of Systems Review of Systems Constitutional: Reports: see HPI. EENTM: Denies: blurred vision, double vision, visual changes. Cardiovascular: Denies: chest pain, edema, orthopena, palpitations, peripheral edema, syncope. Respiratory: Reports: cough, short of breath. GI: Denies: bloating, constipation, diarrhea, distention. Genitourinary: Reports: no symptoms. Musculoskeletal: Denies: joint pain, joint swelling, muscle pain. Skin: Denies: erythema, lesions. Neurological/Psychological: Reports: anxiety, depressed. Hematologic/Endocrine: Reports: no symptoms. Immunologic/Allergic: Reports: no symptoms. Exam & Diagnostic Data Last 24 Hrs of Vital Signs/I&O Vital Signs Date Time Temp Pulse Resp B/P Pulse O2 O2 Flow FiO2 Ox Delivery Rate 11/21 2249 98.1 99 19 132/80 96 Nasal Cannula 11/21 1706 98.2 97 19 126/80 95 Nasal Cannula 11/21 1622 98.1 98 19 121/74 87 Nasal 2.0L Cannula 11/21 1600 Nasal 2.0L Cannula 11/21 1320 88 18 113/63 94 Room Air 11/21 1152 94 Room Air 11/21 1043 98.6 95 20 150/76 96 Room Air Intake & Output 11/21 1600 11/21 0800 04 0000 Intake Total 100 Output Total 1 Balance 99 Intake, IV 100 Output, Urine 1 Patient 108.862 kg Weight Physical Exam General Appearance Alert, Oriented X3, Cooperative, appear depressed and tearful Skin No Significant Lesion HEENT Atraumatic, PERRLA, EOMI, Mucous Membr. moist/pink Neck +2 Carotid Pulse wo Bruit Lymphatic Cervical nl Cardiovascular Normal S1, Normal S2, irregular rate Lungs decreased breath sounds with some b/l wheezes Abdomen Normal Bowel Sounds, Soft Neurological Normal Speech, Strength at 5/5 X4 Ext, Normal Tone Extremities No Clubbing, No Cyanosis, No Edema, No Tenderness/Swelling Vascular Pulses Symmetrical Assessment/Plan Assessment: This is a 65 yo non smoking lady with asthma that is dependent on chronic use, lung collapse due to asthma attack about 25 yrs ago, rate controlled afib, and signinficant recent history of depression and anxiety worsened by recent life stressors, presents with signs and symptoms suggestive of asthma exacerbation. ( increased shortness of breath,cough with sputum, and chest tightness). S/p recentAzithromycin and medrol dose kimmy (PCN allergy) that was refractory. Vitals on admission were stable, with physical examination remarkable for b/l wheezes. CXR was unremarkable for infectious acute pathology, however indicated cardiomegaly amd some pulmonary congestion. However no JVD, LE extremity swelling, or increased swelling. EKG denoted afib rythm but with no acute ischemic changes. Impression * Asthma exacerbation * Elevated INR * Acute worsening of depression/Anxiety woth history of suicidal ideation * History of afib * History of HTN * History of Diabetes Plan * Will admit to [facility] for management of asthma exacerbation on the setting of failed outpatient management. * Solumedrol 40 mg q 12h * TRC/Nebs * Continue rate controlled with cardizem * Will hold off coumadin inn the setting of supra theraputic INR. Will trend INR with goal of 2-3 * Will obtain serial troponins and EKG to r/o ACS. * Will obtain and echo to assess possible CHF. * Will obtain med records from PCP and [facility]. * 1:1 sitter and will ressess q 4h * Psych consult As Ranked By This Provider Problem List: 1. Asthma exacerbation Core Measures/Miscellaneous Acute Coronary Syndrome ACS Diagnosis: No Cerebrovascular Accident CVA/TIA Diagnosis: No Congestive Heart Failure CHF Diagnosis: No Venous Thromboembolism VTE Risk Factors: Acute medical illness, Age > 40 No [facility] VTE prophylaxis d/t: VTE low risk, No contraindications No VTE Pharm Prophylaxis d/t: VTE low risk, No contraindications VTE Diagnosis: No VTE Type: NONE VTE Confirmed by (Test): NONE Severe Sepsis Severe Sepsis Present: No Septic Shock Septic Shock Present: No Miscellaneous Documentation Attending Case Discussed With: JOANNA ELIZABETH MD Primary Care Physician: BROOKLYNN WALLACE Patient sees these Specialists cardiologsit Level of Patient Care: General Medicine Consults Needed: Consulting Specialty: Cardiology JOANNA ELIZABETH 11/21/16 1515: Attending Review Statement Attending Statement Attending Statement: examined this patient, discuss w/resident/PA/SELF PAY COLLECTOR, agreed w/resident/PA/SELF PAY COLLECTOR, discussed with family, reviewed EMR data (avail), discussed with nursing, discussed with case mgmt, reviewed images Attending Assessment/Plan: 65 o/f with pmh of DM, Afib on a/c s/p ablation in past, dyslipidemia, asthma h/ o intubation 25 years ago, ckd stage 2, h/o lung collapse years ago comes with shortness of breath and chest tightness for 2 weeks with sputum production. 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 Patient is on advair at home, chronic prednisone therapy 15 mg, allergic to pencillin, o/e decreased breath sounds b/l wheezes+. no pedal swelling, no JVD appreciated, irregualr rate and rythm, Labs absent leukocytosis, anemia, gfr 56, cr 1.0, INR 4.0, BNP 2320, chest xray cardiomegaly with no acute pulmonary edema. EKG with afib no st t wave changes. Patient is being admitted to gen/med for asthma exacerbation, ?new onset chf r/o ACS. obtain serial cardiac enzymes, echo, i/v steorids 40q8, inhaled, bronchodilators, sputum culture, consult cardiology. lasix 40 daily, basal insulin and RISS titrate as needed, obtain medical records. resume home meds, gi /dvt prophyalxis, full code. JAMEE LESLIE 11/21/16 4859: Resident Review Statement Resident Statement: examined this patient, discussed with senior insight manager international, agreed with senior insight manager international Other Findings: Patient is 65 year old female with past medical history significant for hyperlipidemia, steroid dependent asthma, history of diabetes mellitus on insulin, atrial fibrillation on anticoagulation, severe depression, hypothyroidism, CHF and hypertension of breath from few days. Patient admits that he had bronchitis/upper respiratory tract infection a few weeks ago where she was treated with azithromycin and steroid and got better for a couple of days but again from last 2-3 days she's been coughing a lot and her cough is productive of yellowish phlegm. She also complaining of worsening wheezing and shortness of breath. She admits that she is very short of breath even with walking a few steps at home. She had fever yesterday to 101 and also complaining of chills very often. She denied nausea, vomiting, headache, abdominal pain, dizziness, any urinary or bowel complaints. Patient was very depressed and tearful during the interview she denied any suicidal ideation but she mentioned that she do want to live. Of note was patient was transferred to the floor she mentioned it to the nurse that she might hurt herself and she would be home with count and subsequently was monitored by sitter. White signs on admission were temperature 98.6, pulse 95, respiratory rate 20, blood pressure 150/76 and she was saturating 96% on room air. Labs are significant for WBC count 10.1, hemoglobin 7.6, hematocrit 34.8, platelet count 229, sodium 141, potassium 3.7, BUNs 20, creatinine 1.0, INR 4.0, troponins less than 0.1, proBNP 2320 Chest x-ray showed no evidence of pneumonia there is cardiomegaly without acute pulmonary edema EKG showed atrial fibrillation with no acute ST-T wave changes Physical examination she is alert and oriented but very depressed and tearful Head atraumatic Neck supple Chest showed very reduced air entry with wheezing Heart irregular irregular heart rate with no added sounds Abdomen soft, normal bowel sounds with no organomegaly Extremities showed no edema or cyanosis No neurological deficit was noted on neurological examination Assessment and plan 65 year old female with history of hypertension, hyperlipidemia, diabetes mellitus, depression steroid dependent asthma, questionable history of CHF and came with worsening shortness of breath most likely due to asthma exacerbation but we would rule out CHF in the setting of elevated proBNP Problem list 1. Worsening shortness of breath is likely asthma exacerbation 2. Elevated and the root rule out CHF and ACS 3. History of hypertension 4. History of severe depression and suicidal ideation 5. History of hypo-or thyroidism 6. History of atrial fibrillation on anticoagulation 7. Insulin-dependent diabetes mellitus 8. Supratherapeutic INR Plan -We will admit patient on general medical floor -We will rule out ACS with serial troponins and EKG- -we will request medical records from her primary care physician -We will also confirm her medications from pharmacy -Continue all her home medications except Coumadin as of supratherapeutic INR -Echocardiogram in a.m. and will request cardiology evaluation -IV Solu-Medrol 40 mg every 8 -TRC and nebulization -We'll keep her oxygen saturation more than 88%. -We will request psych evaluation and will continue sitter Supratherapeutic INR and we will not start any pharmacological DVT prophylaxis Diabetic diet Patient is full code
[2016-11-21 17:06] VITALS: BP 126/80
[2016-11-21] MEDS ORDERED: ABILIFY5 M1 PO (18:10)
[2016-11-21] MEDS ORDERED: ASPIRIN325 M2 PO (19:08)
[2016-11-21 22:49] VITALS: BP 132/80
[2016-11-22 07:29] VITALS: BP 132/70
--- NOTE | 2016-11-22 07:40 | PN- Housestaff ---
FLORINDA BRAGA,[facility] 11/22/16 0740: Subjective Follow-up For: Asthma exacerbation Possible CHF Subjective: Patient is seen and examined at bedside. Sitter is still in place. She does deny any suicidal or homicidal ideation. He reports that her breathing and shortness of breath is relatively better compared to yesterday. She does not endorse any new acute complaint of chest pain, palpitation, chest tightness, fever, chills, nausea, vomiting, increased anxiety, or neurological deficits abdominal pain, muscular skeletal pain or dysuria. No acute overnight event reported by nursing staff. Review of Systems Constitutional: Reports: no symptoms. Objective Last 24 Hrs of Vital Signs/I&O Vital Signs Date Time Temp Pulse Resp B/P Pulse O2 O2 Flow FiO2 Ox Delivery Rate 11/22 1530 96 Nasal 1.0L Cannula 11/22 1451 97.9 98 18 156/90 93 Room Air 11/22 0848 Nasal 1.0L Cannula 11/22 0729 98.7 91 18 132/70 97 Nasal Cannula 11/22 0040 97 Nasal 2.0L Cannula 11/22 0000 96 Nasal 2.0L Cannula 11/21 2249 98.1 99 19 132/80 96 Nasal Cannula 11/21 1706 98.2 97 19 126/80 95 Nasal Cannula 11/21 1622 98.1 98 19 121/74 87 Nasal 2.0L Cannula Intake & Output 11/22 1600 11/22 0800 11/22 0000 Intake Total 100 700 Output Total Balance 100 700 Intake, IV 0 Intake, Oral 100 700 Number 0 Bowel Movements Patient 108.862 kg Weight Physical Exam General Appearance: Alert, Oriented X3, Cooperative, SIGNIFICANTLY LESS ANXIOUS COMPARED TO YESTERDAY Skin: No Significant Lesion Cardiovascular: Regular Rate, Normal S1, Normal S2 Lungs: BILATERAL EXPIRATORY WHEEZES APPRECIATED HOWEVER LESS INTENSE COMPARED TO YESTERDAY Abdomen: Normal Bowel Sounds, Soft, No Tenderness Neurological: Normal Gait, Normal Speech, Strength at 5/5 X4 Ext, Normal Tone, Sensation Intact Extremities: No Clubbing, No Cyanosis, No Edema, Normal Pulses, No Tenderness/ Swelling Assessment/Plan Assessment: This is a 65 yo non smoking lady with asthma that is dependent on chronic use, lung collapse due to asthma attack about 25 yrs ago, rate controlled afib, and signinficant recent history of depression and anxiety worsened by recent life stressors, presents with signs and symptoms suggestive of asthma exacerbation. ( increased shortness of breath,cough with sputum, and chest tightness). S/p recentAzithromycin and medrol dose kimmy (PCN allergy) that was refractory. Vitals on admission were stable, with physical examination remarkable for b/l wheezes. CXR was unremarkable for infectious acute pathology, however indicated cardiomegaly amd some pulmonary congestion. However no JVD, LE extremity swelling, or increased swelling. EKG denoted afib rythm but with no acute ischemic changes. Impression * Asthma exacerbation * Elevated INR * Acute worsening of depression/Anxiety woth history of suicidal ideation * History of afib * History of HTN * History of Diabetes Plan * Switch Solu-Medrol to 40 mg q 12h, and hold off on the Advair and Singulair ( patient does not seem to have a allergy component with asthma) * TRC/Nebs * Continue rate controlled with cardizem * Will continue to hold off coumadin in the setting of supra theraputic INR. Will trend INR with goal of 2-3 * Serial troponins ruled out ACS * Will obtain and echo to assess possible CHF as patient presents with progressively worsening shortness of breath even though most likely is from asthma due to her obvious bilateral except or wheezes, elevated proBNP with chest rate findings of cardiomegaly and possible pulmonary edema is concerning for new diagnosis of CHF. Will await cardiology input. * Will discontinue sitter as patient is repeatedly denied suicidal ideation today and reports that her comments yesterday while more in reference to what happened couple months ago. Psych saw the patient and also recommended discontinuation of sitter asked assessment did not indicate an active suicidal ideation. * Continue schedule ariprazole and when necessary as needed for psychosis * We'll also continue Ativan 3 times a day as needed for anxiety * We'll continue escitalopram 20 mg for depression Problem List: 1. Depression, major, recurrent, severe with psychosis 2. Subtherapeutic international normalized ratio (INR) 3. Asthma exacerbation Pain Ratin Pain Location: none Pain Goal: Remain pain free Pain Plan: Per pain pathway Tomorrow's Labs & Rationales: B BEP-patient on furosemide therapy Consulting Request: Consulting Specialty: Cardiology JOANNA ELIZABETH 11/22/16 1150: Attending MD Review Statement Attending Statement Attending MD Statement: examined this patient, discuss w/resident/PA/VISITOR SERVICES SPECIALIST, agreed w/resident/PA/VISITOR SERVICES SPECIALIST, discussed with family, reviewed EMR data (avail), discussed with nursing, discussed with case mgmt, reviewed images Attending Assessment/Plan: 65 o/f with pmh of DM, Afib on a/c s/p ablation in past, dyslipidemia, asthma h/ o intubation 25 years ago, ckd stage 2, h/o lung collapse years ago comes with shortness of breath and chest tightness for 2 weeks with sputum production. 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 Patient is on advair at home, chronic prednisone therapy 15 mg, allergic to pencillin, o/e decreased breath sounds b/l wheezes+. no pedal swelling, no JVD appreciated, irregualr rate and rythm, Labs absent leukocytosis, anemia, gfr 56, cr 1.0, INR 4.0, BNP 2320, chest xray cardiomegaly with no acute pulmonary edema. EKG with afib no st t wave changes. Patient is being admitted to for asthma exacerbation, ?new onset chf r/o ACS. negative serial cardiac enzymes,f/u echo, i/v steorids taper, inhaled bronchodilators, sputum culture, consult cardiology and pulmonary. lasix 40 daily, basal insulin and RISS titrate as needed. on hold coumadin INR monitor, resume home meds, gi/dvt prophyalxis, full code.
[2016-11-22] MEDS ORDERED: ABILIFY2 MG PO (07:59)
[2016-11-22] MEDS ORDERED: ABILIFY5 M1 PO (08:00)
[2016-11-22 08:11] LABS: ABSOLUTE BASOPHIL COUNT 0 /CUMM (0.0-0.2); ABSOLUTE EOSINOPHIL COUNT 0 /CUMM (0.0-0.7); ABSOLUTE GRANULOCYTE CT 9.6 /CUMM (1.4-6.5); ABSOLUTE MONOCYTE COUNT 0.1 /CUMM (0.10-0.60); BASOPHIL % 0.1 % (0.0-2.0); EOSINOPHIL % 0.1 % (0-5); MEAN CORPUSCULAR HGB 28.1 PG (27.0-31.0); MEAN CORPUSCULAR VOLUME 85.2 FL (81.0-99.0); MEAN PLATELET VOLUME 9.3 FL (7.4-10.4); PLATELET COUNT 229 /CUMM (130-400); RBC DISTRIBUTION WIDTH 15.3 % (11.5-14.5); RED BLOOD CELL CT 3.87 /CUMM (4.20-5.40); WHITE BLOOD CELL COUNT 10.7 /CUMM (4.8-10.8)
[2016-11-22 08:23] LABS: PT 33.3 SEC (9.4-12.5)
[2016-11-22 08:47] LABS: GRANULOCYTE % 89.2 % (42.2-75.2)
--- NOTE | 2016-11-22 14:10 | Cons- Psychiatry ---
Psychiatric Consult Date of Consult: 11/22/16 Reason for Consult: "Suicidal ideation with prior history" History of Present Illness: 65 [place] 11[place]21/16 1045 with CC SOB and productive cough, green sputum. The patient was admitted for asthma exacerbation and elevated INR. The patient has had three of her sons , two of them within the last 6 months in her arms. Son, Sudheer, a few months ago of an asthma exacerbation. She has been treated in acute inpatient psychiatry for suicidal ideation, here at , and has been in the [facility] since then, where she is doing well, and responding well to therapy and medications. She plans on continuing with a bereavement group after [facility] graduation, but also plans to continue with outpatient psychiatry for her depression. She is looking for a ranch house to move her family to, which will eliminate stairs, a big problem for her with her respiratory problem. Allergies: Coded Allergies: amoxicillin (From AUGMENTIN) (Severe, throat chocking 09/12/16) clavulanic acid (From AUGMENTIN) (Severe, throat chocking 09/12/16) Current Medications: Current Medications Sig/Pierce Start time Last Medication Dose Route Stop Time Status Admin Acetaminophen 650 MG Q6P PRN 11/21 1400 AC PO Acetaminophen/ 1 TAB Q6P PRN 11/21 1400 AC Hydrocodone Bitart PO Albuterol Sulfate 3 ML EVERY 4 HRS/AWAKE 11/22 0900 AC 11/22 INH 0856 Albuterol Sulfate 3 ML Q6P PRN / 1630 AC 11/22 INH 0423 Albuterol Sulfate 2 PUF Q4-6 PRN PRN 11/21 1630 AC INH Alprazolam 1 MG TID PRN 11/21 1630 AC 04/05 PO 11/28 1629 2211 Aripiprazole 5 MG AT BEDTIME 11/22 2200 AC PO Aripiprazole 2 MG AT BEDTIME 11/22 2200 AC PO Aripiprazole 2 MG ONCE ONE 11/21 2214 DC 11/21 PO 11/21 221 2221 Aripiprazole 5 MG AT BEDTIME 11/21 220 DC 11/21 PO 2210 Aspirin 325 MG DAILY 11/22 1000 AC 11/22 PO 0910 Atorvastatin Calcium 20 MG 1700 11/21 1700 AC 11/21 PO 1900 Budesonide/ 2 PUF BID 11/21 2200 AC 11/22 Formoterol Fumarate INH 0911 Diltiazem HCl 240 MG DAILY 11/21 1625 AC 11/22 PO 0910 Escitalopram Oxalate 20 MG DAILY 11/22 1000 AC 11/22 PO 0910 Furosemide 40 MG DAILY 11/22 1000 AC 11/22 PO 0910 Furosemide 0 .STK-MED ONE 11/21 1420 DC IV Guaifenesin 600 MG Q12 11/22 1315 AC 11/22 PO 1410 Guaifenesin 10 ML .STK-MED ONE 11/21 2203 DC PO 11/21 2204 Guaifenesin/ 10 ML ONCE ONE 11/21 2215 DC 11/21 Dextromethorphan PO 11/21 2216 2213 Insulin Aspart 0 TIDAC/HS 11/21 2146 AC 11/22 SC 1410 Insulin Aspart 0 TIDAC 11/21 1700 DC 11/21 SC 1905 Insulin Detemir 15 UNITS BID 11/21 2200 AC 11/22 SC 0910 Levothyroxine Sodium 0.2 MG DAILY AC 11/22 0700 AC 11/22 PO 0641 Lisinopril 2.5 MG DAILY 11/22 1000 AC 11/22 PO 0910 Methylprednisolone 40 MG Q8 11/21 2200 AC 11/22 IV 1411 Montelukast Sodium 10 MG AT BEDTIME 11/21 2200 AC PO Oxycodone/ 2 TAB Q6P PRN 11/21 1400 AC 11/22 Acetaminophen PO 0025 Patient Medication 1 ED ONE ONE 11/22 1430 AC Teaching ED 11/22 1431 Pregabalin 75 MG TID 11/21 1628 AC 11/22 PO 0910 Past History Past Medical History EENT: NONE, allergies Cardiovascular: AFIB, hyperlipidemia Respiratory: asthma Gastrointestinal: constipation, GERD Hepatic: NONE Renal: NONE, chronic kidney disease Musculoskeletal: chronic back pain, osteoporosis Psychiatric: anxiety, MDD with psychotic features Endocrine: diabetes, hypothyroidism Blood Disorders: anemia Cancer(s): NONE 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: NONE Past Surgical History Surgical History: BILAT KNEE REPLACEMENTS ANKLE FUSIONS BREAST REDUCTIONS TUMMY TUCK (bilat knee replace, rt Ankl fu) Psychosocial History Strengths/Capabilities: Able to ask for help, supportive family Psychiatric Treatment History Psych Treatment Psychiatric Treatment Yes Inpatient Treatment Yes Outpatient Treatment Yes Location of Treatment [facility] Diagnosis: MDD Risk Factors: high anxiety/distress, history of suicide atmpts, SA/MH hospitalized Substance Use/Abuse History Drug Use/Abuse Substances Used/Abused No (Denies) Assessment/Plan Mental Status Mental Status Exam: A+OX4. Denies current AVH,; presents no georgi delusions. She does report "seeing" her son, Teodoro, in her home at night about 2 weeks ago. Depression 5/10, anxiety 9/10; 10/10 would be the worst. Denies suicidal or homicidal ideation. Insight and judgement intact. Thought processes logical and linear. She reports that during her asthma exacerbation, she thought that she might in the same way her son a few months ago. She reports she told nursing that after his , she had thought about buying a gun and killing herself with it. She adamantly denies having any suicidal thoughts since being treated at [facility] earlier this year. Lab Results: Laboratory Tests 11/22 11/22 11/21 0625 0041 1807 Chemistry Sodium (137 - 145 mmol/L) 133 L Potassium (3.5 - 5.1 mmol/L) 4.2 Chloride (98 - 107 mmol/L) 96 L Carbon Dioxide (22 - 30 mmol/L) 28 Anion Gap (5 - 16) 9 BUN (7 - 17 mg/dL) 25 H Creatinine (0.5 - 1.0 mg/dL) 1.0 Estimated GFR (>60 ml/min) 56 L BUN/Creatinine Ratio (7 - 25 %) 25.0 Troponin I (< 0.11 ng/ml) < 0.01 < 0.01 Coagulation PT (9.4 - 12.5 SEC) 33.3 H INR (0.90 - 1.19) 3.21 H Hematology CBC w Diff NO MAN DIFF REQ WBC (4.8 - 10.8 /CUMM) 10.7 RBC (4.20 - 5.40 /CUMM) 3.87 L Hgb (12.0 - 16.0 G/DL) 10.9 L Hct (37 - 47 %) 33.0 L MCV (81.0 - 99.0 FL) 85.2 MCH (27.0 - 31.0 PG) 28.1 RDW (11.5 - 14.5 %) 15.3 H Plt Count (130 - 400 /CUMM) 229 MPV (7.4 - 10.4 FL) 9.3 Gran % (42.2 - 75.2 %) 89.2 H Lymphocytes % (20.5 - 51.1 %) 9.3 L Monocytes % (1.7 - 9.3 %) 1.3 L Eosinophils % (0 - 5 %) 0.1 Basophils % (0.0 - 2.0 %) 0.1 Absolute Granulocytes (1.4 - 6.5 /CUMM) 9.6 H Absolute Lymphocytes (1.2 - 3.4 /CUMM) 1.0 L Absolute Monocytes (0.10 - 0.60 /CUMM) 0.1 L Absolute Eosinophils (0.0 - 0.7 /CUMM) 0 Absolute Basophils (0.0 - 0.2 /CUMM) 0 PUBS MCHC (33.0 - 37.0 G/DL) 33.0 Diffential Diagnosis: 32.3 Major Depression, recurrent severe, w/ psychotic features Impression: The patient is not suicidal, and was relating to nursing last night her feelings of suicidal ideation several months ago when her son, Sudheer, in her arms of an asthma exacerbation. She denies suicidal or homicidal ideation, and is looking forward to returning to [facility]. After that she plans to join a bereavement group, but will continue on with outpatient psychiatry. She reports that Seroquel was D/C after she gained 20 lbs. She takes her Abilify/aripiprazole at 11PM but has difficulty sleeping lately, possibly because she has been ill. If this persists, OPS might consider lurasidone. The patient is unsure what progress has been made in her referral to pain management. Labs reviewed. Sodium 133. EKG reviewed 11/22/16: Afib, 88 bpm, QTc 455 mS. Provisional Treatment Plan: 1. 1:1 sitter is not needed for suicidality, but may be needed for other nursing concerns. The patient promises to stay to complete treatment, but may leave AMA. 2. Pending approval of pulmonary, the patient may restart her home psychotropic meds: a. Aripiprazole 7 mg PO at bedtime b. Aripiprazole 1 mg PO up to 3X/day as needed for psychosis c. Escitalopram 20 mg PO daily d. Alprazolam 1 mg PO up to 3X/day as needed for panic 3. The patient is to return to [facility] after discharge. 4. Please refer the patient to isabel management. We do not anticipate further visits. Please re-consult if other psychiatric matters arise. Thank-you for sharona mai to participate in Sindy's care. Morgan Kellogg APRN, Pager [phone]
--- NOTE | 2016-11-22 14:45 | RADIOLOGY REPORT ---
EXAMINATION: XR CHEST. CLINICAL INFORMATION: Shortness of breath. COMPARISON: Chest done on 11/21/2016 and 11/07/2016. TECHNIQUE: 2 views of the chest were obtained. FINDINGS: Persistent stable [id number] enlargement of the cardiomediastinal silhouette is noted with pulmonary venous hypertension. There is no interstitial edema identified. There is no discrete focal airspace disease present. There is no pleural effusion present. The visualized upper abdomen is unremarkable. Compared to prior study, no significant interval change present. IMPRESSION: Mild CHF, appears stable since 11/21/2016.
[2016-11-22 14:51] VITALS: BP 156/90
--- NOTE | 2016-11-22 15:49 | Cons- Pulmonary ---
BENY MANLEY 11/22/16 1514: General Information and HPI Consulting Request Date of Consult: 11/22/16 Requested By: Margo BRAGA Reason for Consult: Asthma exacerbation Source of Information: patient, old records Exam Limitations: no limitations History of Present Illness: 65-year-old woman presents to the emergency room complaining of worsening short of breath. Patient has a past medical history significant for HTN, DM on insulin, asthma on prednisone, hypothyroidism, anxiety/depression, A. fib A/C on Warfarin. According to patient, about 2-3 months ago she noticed a progressive, initilally subtle, shortness of breath, was primarily exertional and associated with reproducible and predictable chest tightness and palpitation. He is an active community dweller who lives alone and ambulates independently and takes care of herself. Since 2-3 months ago patient states that her physical capability progressively deteriorated and after climbing 13 flights of stairs she needed to stop and catch her breath. She also highlighted increasing abdominal girth, unexplained and unintentional weight gain, low energy and fatigue, and mild right upper quadrant vague discomforts ((feeling stretched from inside). Urologist about that time and initial test in the office (EKG) was normal and patient was discharged home. About 3 weeks ago patient developed symptoms of upper respiratory tract infection including but not limited to productive cough with green yellow sputum, slight temperature, shaking chills, body aches, wheezing. Patient denied chest pain, palpitation, lightheadedness, dizziness, lightheadedness, dizziness. Visited [facility] emergency room and started on azithromycin and by mouth prednisone which she finished last week. After finishing her medication as symptomatology and acute worsening of her shortness of breath which was exaggerated after her viral infection subsided. However, her baseline shortness of breath did not improved completely and patient presented at the emergency room. 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 She has been compliant with her inhaler and Singulair. Has a history of ICU admission for lung collapse secondary to asthma exacerbation 25 years ago and one hospital admission due to asthma exacerbation 9 months ago which did not require years ICU or intubation. According to patient and her baseline her asthma is mild intermittent. Allergies/Medications Allergies: Coded Allergies: amoxicillin (From AUGMENTIN) (Severe, throat chocking 09/12/16) clavulanic acid (From AUGMENTIN) (Severe, throat chocking 09/12/16) Home Med List: Albuterol Sulfate (Proair Hfa) 90 MCG HFA.AER.AD 2 PUF INH Q4-6 PRN PRN ASTHMA (Reported) Albuterol Sulfate 2.5 MG/3 ML (0.083 %) VIAL.NEB 1 Vial INH/NISH Q6P PRN SHORTNESS OF BREATH (Reported) Alendronate Sodium (Fosamax) 70 MG TABLET 1 TAB PO QW OSTEOPOROSIS (Reported) in the morning, at least 30 minutes before the first food, beverage, or medication of the day Alprazolam (Xanax) 1 MG TABLET 1 MG PO TIDPRN ANXIETY TAKE UP TO 3 TIMES DAILY NEEDED FOR ANXIETY. Aripiprazole (Abilify) 2 MG TABLET 1 TAB PO AT BEDTIME DEPRESSION (Reported) Aripiprazole (Abilify) 5 MG TABLET 1 TAB PO AT BEDTIME ACID REFLUX (Reported) Aspirin (Aspirin*) 325 MG TABLET 1 TAB PO DAILY HEART HEALTH (Reported) Diltiazem HCl (Diltiazem 24HR ER) 240 MG CAP.ER.24H 1 CAP PO DAILY CARDIAC ( Reported) Ergocalciferol (Vitamin D2) (Vitamin D2) 50,000 UNIT CAPSULE 1 CAP PO QW SUPPLEMENT (Reported) Escitalopram Oxalate (Lexapro) 20 MG TABLET 20 MG PO DAILY DEPRESSION AND ANXIETY Fluticasone/Salmeterol (Advair 500-50 Diskus) 500 MCG-50 MCG/DOSE BLST.W.DEV 1 PUF INH BID ASTHMA (Reported) Furosemide (Lasix) 40 MG TABLET 1 TAB PO DAILY CARDIAC (Reported) Glipizide (Glipizide ER) 10 MG TAB.ER.24 1 TAB PO DAILY DIABETES (Reported) Insulin Aspart, Recombinant (Novolog Flexpen) 100 UNIT/ML INSULN.PEN 6 UNITS SQ QAC DIABETES (Reported) Insulin Glargine,Hum.rec.anlog (Lantus Solostar) 100 UNIT/ML (3 ML) INSULN.PEN 25 UNIT SC 0800 DIABETES (Reported) Insulin Glargine,Hum.rec.anlog (Lantus Solostar) 100 UNIT/ML (3 ML) INSULN.PEN 15 UNITS SC QPM DIABETES (Reported) Iron,Carbonyl (Feosol) (Unknown Strength) TABLET 325 MG PO DAILY SUPPLEMENT ( Reported) Levothyroxine Sodium (Synthroid) 200 MCG TABLET 1 TAB PO QW THYROID (Reported ) Levothyroxine Sodium 200 MCG TABLET 1 TAB PO DAILY AC THYROID (Reported) Linaclotide (Linzess) 145 MCG CAPSULE 1 CAP PO DAILY CONSTIPATION (Reported) Lisinopril 2.5 MG TABLET 1 TAB PO DAILY HEART (Reported) Montelukast Sodium (Singulair) 10 MG TABLET 1 TAB PO DAILY ASTHMA (Reported) Pantoprazole Sodium (Protonix) 40 MG TABLET.DR 1 TAB PO DAILY STOMACH ( Reported) Prednisone 20 MG TABLET 1 TAB PO DAILY ASTHMA (Reported) Pregabalin (Lyrica) 75 MG CAPSULE 1 CAP PO TID PAIN (Reported) Simvastatin (Zocor*) 20 MG TABLET 1 TAB PO QPM HPL (Reported) Warfarin Sodium (Coumadin) 4 MG TABLET 1 TAB PO SuWeFr BLOOD THINNER ( Reported) Warfarin Sodium (Coumadin) 2 MG TABLET 1 TAB PO MoTuThSa BLOOD THINNER ( Reported) Current Medications: Current Medications Sig/Pierce Start time Last Medication Dose Route Stop Time Status Admin Acetaminophen 650 MG Q6P PRN 04 1400 AC PO Acetaminophen/ 1 TAB Q6P PRN 11/21 1400 AC Hydrocodone Bitart PO Albuterol Sulfate 3 ML EVERY 4 HRS/AWAKE 11/22 0900 AC 11/22 INH 0856 Albuterol Sulfate 3 ML Q6P PRN / 1630 AC 11/22 INH 0423 Albuterol Sulfate 2 PUF Q4-6 PRN PRN 11/21 1630 AC INH Alprazolam 1 MG TID PRN 11/21 1630 AC 11/21 PO 11/28 1629 2211 Aripiprazole 5 MG AT BEDTIME 11/22 2200 AC PO Aripiprazole 2 MG AT BEDTIME 11/22 2200 AC PO Aripiprazole 2 MG ONCE ONE 11/21 2215 DC 11/21 PO 11/21 2216 2221 Aripiprazole 5 MG AT BEDTIME 11/21 220 DC 11/21 PO 2210 Aspirin 325 MG DAILY 11/22 1000 AC 11/22 PO 0910 Atorvastatin Calcium 20 MG 1700 04/ 1700 AC 11/21 PO 1900 Budesonide/ 2 PUF BID 11/21 2200 AC 11/22 Formoterol Fumarate INH 0911 Diltiazem HCl 240 MG DAILY 11/21 1625 AC 04/ PO 0910 Escitalopram Oxalate 20 MG DAILY 11/22 1000 AC / PO 0910 Furosemide 40 MG DAILY 11/22 1000 AC 11/22 PO 0910 Guaifenesin 600 MG Q12 11/22 1315 AC 04 PO 1410 Guaifenesin 10 ML .STK-MED ONE 11/21 2203 DC PO 11/21 2204 Guaifenesin/ 10 ML ONCE ONE 11/21 2215 DC / Dextromethorphan PO 11/21 2216 2213 Insulin Aspart 0 TIDAC/HS 11/21 2146 AC 11/22 SC 1410 Insulin Aspart 0 TIDAC 11/21 1700 DC 11/21 SC 1905 Insulin Detemir 15 UNITS BID 11/21 2200 AC 11/22 SC 0910 Levothyroxine Sodium 0.2 MG DAILY AC 11/22 0700 AC 11/22 PO 0641 Lisinopril 2.5 MG DAILY 11/22 1000 AC 11/22 PO 0910 Methylprednisolone 40 MG Q8 11/21 2200 AC 11/22 IV 1411 Montelukast Sodium 10 MG AT BEDTIME 11/21 2200 AC PO Oxycodone/ 2 TAB Q6P PRN 11/21 1400 AC 11/22 Acetaminophen PO 0025 Patient Medication 1 ED ONE ONE 11/22 1430 CO Teaching ED 11/22 1431 Pregabalin 75 MG TID 11/21 1628 AC 11/22 PO 0910 Review of Systems Review of Systems Constitutional: Reports: see HPI. EENTM: Reports: see HPI. Cardiovascular: Reports: see HPI. Denies: edema, orthopena, palpitations, peripheral edema, syncope. Respiratory: Reports: cough, short of breath, sputum production, wheezing. GI: Reports: see HPI. Genitourinary: Reports: see HPI. Skin: Reports: see HPI. 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 Home Smoking Status: Never Smoked ETOH Use: denies use Illicit Drug Use: denies illicit drug use Living Will? unknown Power of [place]lower/HCP? unknown Functional Ability ADLs Independent: dressing, eating, toileting, bathing. Ambulation: independent IADLs Independent: shopping, housework, finances, food prep, telephone, transportation , medication admin. Exam & Diagnostic Data Last 24 Hrs of Vital Signs/I&O Vital Signs Date Time Temp Pulse Resp B/P Pulse O2 O2 Flow FiO2 Ox Delivery Rate 11/22 1451 97.9 98 18 156/90 93 Room Air 11/22 0848 Nasal 1.0L Cannula 11/22 0729 98.7 91 18 132/70 97 Nasal Cannula 11/22 0040 97 Nasal 2.0L Cannula 11/22 0000 96 Nasal 2.0L Cannula 11/21 2249 98.1 99 19 132/80 96 Nasal Cannula 11/21 1706 98.2 97 19 126/80 95 Nasal Cannula 11/21 1622 98.1 98 19 121/74 87 Nasal 2.0L Cannula 11/21 1600 Nasal 2.0L Cannula Intake & Output 11/22 1600 11/22 0800 04 0000 Intake Total 100 700 Output Total Balance 100 700 Intake, IV 0 Intake, Oral 100 700 Number 0 Bowel Movements Patient 240 lb Weight Physical Exam General Appearance: well developed/nourished, no apparent distress, anxious, obese Head: atraumatic Eyes: Bilateral: normal appearance, PERRL. Neck: supple, full range of motion Respiratory: wheezing Cardiovascular: regular rate/rhythm Gastrointestinal: normal bowel sounds, soft, non-tender Rectal: deferred Extremities: no edema Cranial Nerves: normal hearing, normal speech, PERRL Skin: normal color Last 48 Hrs of Labs/Gerson: Laboratory Tests 11/22/16 0625: Anion Gap 9, Estimated GFR 56 L, BUN/Creatinine Ratio 25.0, PT 33.3 H, INR 3.21 H, CBC w Diff NO MAN DIFF REQ, RBC 3.87 L, MCV 85.2, MCH 28.1, RDW 15.3 H, MPV 9.3, Gran % 89.2 H, Lymphocytes % 9.3 L, Monocytes % 1.3 L, Eosinophils % 0.1, Basophils % 0.1, Absolute Granulocytes 9.6 H, Absolute Lymphocytes 1.0 L, Absolute Monocytes 0.1 L, Absolute Eosinophils 0, Absolute Basophils 0, PUBS MCHC 33.0 11/22/16 0041: Troponin I < 0.01 11/21/16 1807: Troponin I < 0.01 11/21/16 1135: Anion Gap 8, Estimated GFR 56 L, BUN/Creatinine Ratio 20.0, Glucose 94, Hemoglobin A1c 8.6 H, Calcium 9.5, Magnesium 1.8, Total Bilirubin 0.6, AST 21, ALT 34, Alkaline Phosphatase 60, Troponin I < 0.01, [id number]-[id number] Pept 2320 H, Total Protein 6.8, Albumin 3.7, Globulin 3.1, Albumin/Globulin Ratio 1.2, Triglycerides 76, Cholesterol 129, LDL Cholesterol, Calc 56 L, HDL Cholesterol 58, Cholesterol/HDL Ratio 2, TSH 0.401, Free T4 1.83, PT 41.4 H, INR 4.00 *H, CBC w Diff NO MAN DIFF REQ, RBC 4.09 L, MCV 85.2, MCH 28.5, RDW 15.3 H, MPV 8.8, Gran % 62.4, Lymphocytes % 26.1, Monocytes % 10.4 H, Eosinophils % 0.6, Basophils % 0.5, Absolute Granulocytes 6.3, Absolute Lymphocytes 2.6, Absolute Monocytes 1.1 H, Absolute Eosinophils 0.1, Absolute Basophils 0.1, PUBS MCHC 33.4 Diagnostic Data EKG Results Normal sinus rate and rhythm CXR Results #1 no evidence of pneumonia #2 cardiomegaly without acute pulmonary edema or other significant interval change compared to 11/07/2016 Assessment/Plan Impression/Plan: 65-year-old woman was admitted for asthma exacerbation and newly diagnosed congestive heart failure. Pertinent data ProBNP 2320, INR 3.21, WBC 10.1 left shift no bandemia, troponin less than 0.01 x3 List of active problems #1 worsening shortness of breath: Asthma exacerbation secondary to upper respiratory tract infection AND/OR cardiogenic asthma secondary to newly diagnosed congestive heart failure(cardiomegaly chest x-ray and elevated proBNP and natural course of shortness of breath for the past 2-3 months is more indicated above developing congestive heart failure). * 40 mg methylprednisolone IV every 12 hours * Obtain flu swab; if it was positive started patient on Tamiflu * Follow up respiratory cultures * Keep off antibiotics if patient spikes fever ceftriaxone and azithromycin for community-acquired pneumonia * Stop singular * Stop Symbicort * Albuterol inhaler 3 mL every 4 as needed * TRC; peak flow * CT scan of the chest: Questionable history for sarcoidosis. Assessment for diffuse parenchymal lung disease. #2 newly diagnosed congestive heart failure * Obtain echo * Heart healthy diet * Daily weights * Follow-up with cardiology recommendation #3 DM: Insulin-dependent: As per medical team #4 history of hypothyroidism: Manage per medical team #5 HTN- #6 A. fib-supratherapeutic INR; off warfarin; restart warfarin after normalization of INR; targets between 2-3 Problem List: 1. Depression, major, recurrent, severe with psychosis 2. Asthma exacerbation 3. Bronchitis 4. Finger fracture 5. Asthma 6. Afib Consult Acknowledgment - Thank you for your consult request. SEBASTIÁN SCHROEDER MD 11/22/16 1556: Assessment/Plan Other Findings/Comments: Sebastián Cantu M.D. have examined this patient, reviewed available EMR data, personally reviewed images, discussed with resident/PA/SUPERVIS[employer], discussed management plan with housestaff and nursing staff, discussed managment plan all of healthcare providers, discussed management plan with patient and/or family, agreed with resident/PA/[employer]PER[employer]. The past history and parts of the chart have been autopopulated. Impression 65 year old woman with dyspnea * Dyspnea with a broad differential, however given elevated BNP, leg edema, cardiomegaly and improvement with lasix a cardiac cause is possible such as chf. * Patient also carries a history of asthma and likely has an element of an asthma exacerbation that we are treating * Also in the chart and per patient she has been on steroids for sometime and there was concern regarding sarcoidosis Plan - CT chest without contrast - ECHO - reduce solumedrol to 40mg iv q12h with a quick taper - dc symbicort - dc singulair - cont trc/nebs - pt on advair at home, can resume as outpt DVT prophylaxis at all times Consult Acknowledgment - Thank you for your consult request.
--- NOTE | 2016-11-22 18:59 | CT SCAN REPORT ---
EXAMINATION: CT CHEST WITHOUT CONTRAST CLINICAL INFORMATION: Progressive shortness of breath. Sarcoidosis versus pulmonary nodules. COMPARISON: Multiple chest x-rays most recent prior dated 11/22/2016 TECHNIQUE: Multidetector volumetric CT imaging of the chest was done. Axial MIP volume rendering provided. Sagittal and coronal reformatted images were obtained. DLP: 806.05 mGy-cm FINDINGS: YARD SPOTTER: Cardiomegaly. No acute pulmonary disease. LUNGS: Minor peribronchial vascular hazy groundglass opacity noted in the upper lobes, right greater than left (series 4 image [id number]). Minor associated bronchial wall thickening. Subtle centrilobular nodules noted in the left upper lobe (series 4 image 109-111), bilateral upper lobes (series 4 image 134-141). Patchy groundglass attenuation left upper lobe (series 4 image 169) Bronchial wall thickening, mild mucous plugging and hazy peribronchial vascular groundglass opacity lingular segment and series series 4 image 220-250) Bronchial wall thickening, centrilobular nodules and peribronchial vascular groundglass opacities left lower lobe and to a lesser extent right lower lobe (series 4 image 348-370). Subtle groundglass nodular opacity right upper lobe measuring approximately 0.5 cm (series 4 image 212). MEDIASTINUM: Enlarged lymph nodes noted in the right paratracheal, AP window, prevascular space. Atherosclerotic disease with intimal calcification of aorta and the coronary arteries. Moderate to large hiatal hernia. PLEURA: There is no pleural effusion. No pleural mass or thickening. AXILLA: No lymphadenopathy. UPPER ABDOMEN: Atherosclerotic disease. OSSEOUS STRUCTURES: Degenerative changes of the thoracic spine. No acute or suspicious osseous abnormality. IMPRESSION: 1. Mild bronchial wall thickening, centrilobular nodules and hazy peribronchial vascular groundglass attenuation bilateral lungs as detailed. Demonstrates slight left lower lobe dominance. These findings are most likely due to inflammatory etiology including sarcoidosis. Hypersensitivity pneumonitis included in the differential possibility. Infectious etiology is a less likely possibility. 2. 0.5 cm right upper lobe nodule. Monitoring is recommended based on risk factors. 3. Mild mediastinal lymphadenopathy 4. Moderate to large hiatal hernia. The Fleischner Society recommendations for incidental sub-solid pulmonary nodules are as follows: Solitary pure ground glass nodule < or = to 5 mm: No follow up needed. Solitary pure ground glass nodule > 5 mm: Follow up CT at 3 months; if unchanged, annual CT for at least 3 years. Solitary part-solid nodule: Follow up CT at 3 months; if persistent and solid component < 5 mm, annual CT for at least 3 years. If persistent and solid component > or = 5 mm, biopsy or resection.
--- NOTE | 2016-11-22 19:22 | Cons- Cardiology ---
General Information and HPI Consulting Request Date of Consult: 11/22/16 Requested By: JOANNA ELIZABETH MD Reason for Consult: Heart failure. Source of Information: patient, old records Exam Limitations: no limitations History of Present Illness: Mrs. Sindy Barrera is a 65-year-old female with a history of obesity , steroid dependent asthma, thyroid nodule s/p radiation therapy on replacement, hypertension, dyslipidemia, diabetes mellitus, and chronic atrial fibrillation on warfarin anticoagulation who presented to the ED via ambulance with progressive shortness of breath, bilateral wheezing, cough productive of greenish sputum, etc. with CXR findings suspicious for heart failure who we are asked to help evaluate and manage. Mrs. Barrera has been under considerable stress of late from personal issues. She denies any history of coronary, valvular, conduction disease or cardiomyopathy. She has had the atrial fibrillation for approximately 15 years and has undergone multiple electrical cardioversions during that time. Allergies/Medications Allergies: Coded Allergies: amoxicillin (From AUGMENTIN) (Severe, throat chocking 09/12/16) clavulanic acid (From AUGMENTIN) (Severe, throat chocking 09/12/16) Home Med List: Albuterol Sulfate (Proair Hfa) 90 MCG HFA.AER.AD 2 PUF INH Q4-6 PRN PRN ASTHMA (Reported) Albuterol Sulfate 2.5 MG/3 ML (0.083 %) VIAL.NEB 1 Vial INH/NISH Q6P PRN SHORTNESS OF BREATH (Reported) Alendronate Sodium (Fosamax) 70 MG TABLET 1 TAB PO QW OSTEOPOROSIS (Reported) in the morning, at least 30 minutes before the first food, beverage, or medication of the day Alprazolam (Xanax) 1 MG TABLET 1 MG PO TIDPRN ANXIETY TAKE UP TO 3 TIMES DAILY NEEDED FOR ANXIETY. Aripiprazole (Abilify) 2 MG TABLET 1 TAB PO AT BEDTIME DEPRESSION (Reported) Aripiprazole (Abilify) 5 MG TABLET 1 TAB PO AT BEDTIME ACID REFLUX (Reported) Aspirin (Aspirin*) 325 MG TABLET 1 TAB PO DAILY HEART HEALTH (Reported) Diltiazem HCl (Diltiazem 24HR ER) 240 MG CAP.ER.24H 1 CAP PO DAILY CARDIAC ( Reported) Ergocalciferol (Vitamin D2) (Vitamin D2) 50,000 UNIT CAPSULE 1 CAP PO QW SUPPLEMENT (Reported) Escitalopram Oxalate (Lexapro) 20 MG TABLET 20 MG PO DAILY DEPRESSION AND ANXIETY Fluticasone/Salmeterol (Advair 500-50 Diskus) 500 MCG-50 MCG/DOSE BLST.W.DEV 1 PUF INH BID ASTHMA (Reported) Furosemide (Lasix) 40 MG TABLET 1 TAB PO DAILY CARDIAC (Reported) Glipizide (Glipizide ER) 10 MG TAB.ER.24 1 TAB PO DAILY DIABETES (Reported) Insulin Aspart, Recombinant (Novolog Flexpen) 100 UNIT/ML INSULN.PEN 6 UNITS SQ QAC DIABETES (Reported) Insulin Glargine,Hum.rec.anlog (Lantus Solostar) 100 UNIT/ML (3 ML) INSULN.PEN 25 UNIT SC 0800 DIABETES (Reported) Insulin Glargine,Hum.rec.anlog (Lantus Solostar) 100 UNIT/ML (3 ML) INSULN.PEN 15 UNITS SC QPM DIABETES (Reported) Iron,Carbonyl (Feosol) (Unknown Strength) TABLET 325 MG PO DAILY SUPPLEMENT ( Reported) Levothyroxine Sodium (Synthroid) 200 MCG TABLET 1 TAB PO QW THYROID (Reported ) Levothyroxine Sodium 200 MCG TABLET 1 TAB PO DAILY AC THYROID (Reported) Linaclotide (Linzess) 145 MCG CAPSULE 1 CAP PO DAILY CONSTIPATION (Reported) Lisinopril 2.5 MG TABLET 1 TAB PO DAILY HEART (Reported) Montelukast Sodium (Singulair) 10 MG TABLET 1 TAB PO DAILY ASTHMA (Reported) Pantoprazole Sodium (Protonix) 40 MG TABLET.DR 1 TAB PO DAILY STOMACH ( Reported) Prednisone 20 MG TABLET 1 TAB PO DAILY ASTHMA (Reported) Pregabalin (Lyrica) 75 MG CAPSULE 1 CAP PO TID PAIN (Reported) Simvastatin (Zocor*) 20 MG TABLET 1 TAB PO QPM HPL (Reported) Warfarin Sodium (Coumadin) 4 MG TABLET 1 TAB PO SuWeFr BLOOD THINNER ( Reported) Warfarin Sodium (Coumadin) 2 MG TABLET 1 TAB PO MoTuThSa BLOOD THINNER ( Reported) Review of Systems Review of Systems: A 14 point system review was obtained and was noncontributory, other than as above. 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 Home Smoking Status: Never Smoked ETOH Use: denies use Illicit Drug Use: denies illicit drug use Living Will? unknown Power of Assistant Center Manager/HCP? unknown Functional Ability ADLs Independent: dressing, eating, toileting, bathing. Ambulation: independent IADLs Independent: shopping, housework, finances, food prep, telephone, transportation , medication admin. Exam & Diagnostic Data Vital Signs and I&O Vital Signs Date Time Temp Pulse Resp B/P Pulse O2 O2 Flow FiO2 Ox Delivery Rate 11/22 1600 Nasal 2.0L Cannula 11/22 1530 96 Nasal 1.0L Cannula 11/22 1451 97.9 98 18 156/90 93 Room Air 11/22 0848 Nasal 1.0L Cannula 11/22 0729 98.7 91 18 132/70 97 Nasal Cannula 11/22 0040 97 Nasal 2.0L Cannula 11/22 0000 96 Nasal 2.0L Cannula 11/21 2249 98.1 99 19 132/80 96 Nasal Cannula Intake & Output 11/22 1600 11/22 0800 / 0000 11/21 1600 11/21 0800 04 0000 Intake Total 480 100 700 100 Output Total 1 Balance 480 100 700 99 Intake, IV 0 100 Intake, Oral 480 100 700 Number 0 Bowel Movements Output, Urine 1 Patient 240 lb 240 lb Weight Physical Exam: Well-developed, overweight elderly, female in no acute distress with nasal oxygen in place. Vital signs: See above. HEENT: Normocephalic, atraumatic, EOMI, moist mucous membranes. Neck: No JVD, no bruits. Heart: S1, S2 (irregularly, irregular) with soft (grade 1/6) systolic murmur. No gallop or rub appreciated. PMI fifth ICS at [facility]. Abdomen: Soft and nontender, positive bowel sounds. Extremities: Trace edema. Diagnostic Data EKG Results (11/22/2016) atrial fibrillation with a normal mean ventricular response, late precordial transition, nonspecific T-wave abnormalities. CXR Results (11/22/2016) Mild CHF, appears stable since 11/21/2016. Assessment/Plan Assessment/Plan Mrs. Barrera is a 65-year-old female with a history of obesity, steroid dependent asthma, thyroid nodule s/p radiation therapy on replacement, HTN, HLC, DM, chronic AF on warfarin who presented with progressive shortness of breath, bilateral wheezing, cough productive of greenish sputum, etc. with CXR findings suspicious for heart failure who we are asked to help evaluate and manage. Mrs. Barrera denies any history of coronary, valvular, conduction disease or cardiomyopathy, but has had atrial fibrillation for approximately 15 years and has undergone multiple electrical cardioversions during that time, but has never been told she had heart failure. Mrs. Barrera also has a risk equivalent and multiple risk factors for coronary artery disease, so her heart failure could be on the basis of underlying ischemic heart disease. Recommendations: * Continue on general medicine, as the ventricular response to her atrial fibrillation appears well controlled on her present regimen. * Continue to hold warfarin given supratherapeutic INR. * Continue cardiac regimen for rate control. * Schedule for an echocardiogram to assess her left ventricular systolic function, degree of left ventricular hypertrophy, right ventricular function, atrial size, occult valvular disease, estimated PA systolic pressure, etc. * Need strict inputs and outputs, as well as daily weights. * Consider IV furosemide 40 mg for the next 24 hours and reassess the need further IV diuresis. * Repeat CXR in a.m. following good diuresis. * DVT prophylaxis being addressed by warfarin anticoagulation. * Would recommend an outpatient pharmacologic (dobutamine) stress test to help exclude significant underlying ischemia as part of the etiology for her presentation, after her respiratory status has improved. Consult Acknowledgment - Thank you for your consult request.
[2016-11-22 22:12] VITALS: BP 138/82
[2016-11-23 07:11] VITALS: BP 104/80
--- NOTE | 2016-11-23 07:54 | PN- Housestaff ---
FLORINDA BRAGA,CHARLENE 11/23/16 0754: Subjective Follow-up For: Asthma exacerbation Subjective: Patient is seen and examined at bedside today. She appears less anxious compared to yesterday, she is laying in bed comfortably and reports interval improvement in her shortness of breath. She does not endorse any other new acute complaints including chest pain, palpitation, increased chest tightness, fever, chills, nausea, vomiting, dizziness, focal neurological deficits, abdominal pain or dysuria. Review of Systems Constitutional: Reports: no symptoms. Objective Last 24 Hrs of Vital Signs/I&O Vital Signs Date Time Temp Pulse Resp B/P Pulse O2 O2 Flow FiO2 Ox Delivery Rate 11/23 0952 100 100/70 11/23 0802 97 Nasal 2.0L Cannula 11/23 0800 Nasal 2.0L Cannula 11/23 0711 97.9 76 20 104/80 96 Nasal 2.0L Cannula 11/23 0102 98 Nasal 2.0L Cannula 11/23 0000 Nasal 2.0L Cannula 11/22 2212 98.2 88 24 138/82 94 Room Air 11/22 1600 Nasal 2.0L Cannula 11/22 1530 96 Nasal 1.0L Cannula 11/22 1451 97.9 98 18 156/90 93 Room Air Intake & Output 11/23 1600 11/23 0800 11/23 0000 Intake Total 500 700 Output Total Balance 500 700 Intake, IV 0 Intake, Oral 500 700 Number 0 Bowel Movements Patient 107.19 kg Weight Physical Exam General Appearance: Alert, Oriented X3, Cooperative Assessment/Plan Assessment: This is a 65 yo non smoking lady with asthma that is dependent on chronic use, lung collapse due to asthma attack about 25 yrs ago, rate controlled afib, and signinficant recent history of depression and anxiety worsened by recent life stressors, presents with signs and symptoms suggestive of asthma exacerbation. ( increased shortness of breath,cough with sputum, and chest tightness). S/p recentAzithromycin and medrol dose kimmy (PCN allergy) that was refractory. Vitals on admission were stable, with physical examination remarkable for b/l wheezes. CXR was unremarkable for infectious acute pathology, however indicated cardiomegaly amd some pulmonary congestion. However no JVD, LE extremity swelling, or increased swelling. EKG denoted afib rythm but with no acute ischemic changes. Impression * Asthma exacerbation * Elevated INR * Acute worsening of depression/Anxiety woth history of suicidal ideation * History of afib * History of HTN * History of Diabetes * Pulmonary nodule Plan * Interval improvement in shortness of breath and wheezes . Will Switch Solu- Medrol to prednisone oral with taper. will restart Advair and Singulair on discharge. * TRC/Nebs * Continue rate controlled with cardizem * Will dose Coumadin 4 mg today as INR is at goal. * Possible new CHF?? As patient presents with progressively worsening shortness of breath even though most likely is from asthma due to her obvious bilateral expiratory or wheezes, however the elevated proBNP with CXR findings of cardiomegaly and possible pulmonary congestion is concerning for new diagnosis of CHF. Will await further cardiology input and echo results. * Outpatient follow-up on patient's pulmonary nodule,. Cannot decisively rule out sarcoidosis based on the CT chest finding however hypersensitivity pneumonitis is also part of the differential which could be explained by patient 's asthma condition. * Continue schedule ariprazole and when necessary as needed for psychosis * We'll also continue Ativan 3 times a day as needed for anxiety. * We'll continue escitalopram 20 mg for depression * Continue oxycodone for patient's chronic back pain, also add lidocaine patches for improved pain relief. Problem List: 1. Asthma exacerbation Pain Ratin Pain Location: back (chronic pain) Pain Goal: Pain 4 or less Pain Plan: per pain pathway Tomorrow's Labs & Rationales: bep-on diuresis INR-ON COOUMADIN DOSING Consulting Request: Consulting Specialty: Cardiology JOANNA ELIZABETH 11/23/16 1137: Attending MD Review Statement Attending Statement Attending MD Statement: examined this patient, discuss w/resident/PA/EXTRUSION PROCESS OPERATOR, agreed w/resident/PA/EXTRUSION PROCESS OPERATOR, discussed with family, reviewed EMR data (avail), discussed with nursing, discussed with case mgmt, reviewed images Attending Assessment/Plan: 65 o/f with pmh of DM, Afib on a/c s/p ablation in past, dyslipidemia, asthma h/ o intubation 25 years ago, ckd stage 2, h/o lung collapse years ago comes with shortness of breath and chest tightness for 2 weeks with sputum production. 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 Patient is on advair at home, chronic prednisone therapy 15 mg, allergic to pencillin, o/e decreased breath sounds b/l wheezes+. no pedal swelling, no JVD appreciated, irregualr rate and rythm, Labs absent leukocytosis, anemia, cr 1.0>>1.3, INR elevated, BNP 2320, chest xray cardiomegaly with no acute pulmonary edema. EKG with afib no st t wave changes. Patient is being admitted for asthma exacerbation, ?new onset chf r/o ACS. negative serial cardiac enzymes, f/u echo , NST as o/p for evaluate ischmeia as per cards, i/v steorids taper, inhaled bronchodilators, sputum culture, CT chest with difffuse interstitial inflitrates possible sarcoidosis vs hypersensitivity penumonitis. f/u cardiology and pulmonary. lasix use as per cardiology, basal insulin and RISS titrate as needed. on hold coumadin INR monitor, resume home meds, monitor creatinine tomorrow, gi/dvt prophyalxis, full code.
--- NOTE | 2016-11-23 08:34 | PN- Pulmonary ---
ADONISELGINSARAHBENY 11/23/16 0825: Subjective HPI/Critical Care Issues: 65-year-old woman was admitted for asthma exacerbation and newly diagnosed heart failure. Patient was visited and examined this morning. She is sitting comfortably in her bed on oxygen supplementation nasal cannula 2 L. Does not look to be in acute respiratory distress, uses full sentences. Patient reports exertional short of breath with minimal movements. She also had one episode of short of breath and wheezing while she was resting last night which required Neb treatments. Vital signs: Stable. Weight: lost 4 pounds since November 21 Labs: Potassium 3.7, sodium 135, BUN [address] scan of the chest: Diffuse groundglass opacities reported in different areas of lungs are lateral, bronchial thickening and centrilobular poor nodule and hazy peribronchial vascular groundglass attenuation bilateral lungs; mediastinum : Enlarged lymph nodes noted in the right paratracheal>>> suggestive of pulmonary sarcoidosis Vs hypersensitivity pneumonitis. No pleural mass or any new pleural effusion; Review of system: Patient complains of shortness of breath and wheeze, primarily exertional. Physical exam: Head and neck: Mucous membranes are dry, No JVD, no peripheral edema, CV: S1-S2 no murmur; Lungs: + Rhonchi and expiratory wheezing; e xtremities: No peripheral edema Assessment 65-year-old was admitted for asthma exacerbation and first time diagnosis of heart failure. List of active problems #1 newly diagnosed heart failure * Follow-up echo results * Maintain negative fluid balance and IV diuresis * Managed her medical team and grounding engineer * Follow chest x-ray results for this a.m. #2 asthma * Continue steroids at the current dose of 40 mg IV twice a day * Ambulatory O2 saturation * TRC at every 4 as needed * Remains off antibiotics, Advair and singular * Chest CT scan was suggestive of sarcoidosis;>>> * Follow-up sputum culture; flu swab was negative #3 CT scan findings suggestive of Sarcoidosis Vs hypersensitivity pneumonitis Impression/Plan Impression/Plan Impression/Plan: 65-year-old woman was admitted for asthma exacerbation and newly diagnosed congestive heart failure. Pertinent data ProBNP 2320, INR 3.21, WBC 10.1 left shift no bandemia, troponin less than 0.01 x3 List of active problems #1 worsening shortness of breath: Asthma exacerbation secondary to upper respiratory tract infection AND/OR cardiogenic asthma secondary to newly diagnosed congestive heart failure(cardiomegaly chest x-ray and elevated proBNP and natural course of shortness of breath for the past 2-3 months is more indicated above developing congestive heart failure). * 40 mg methylprednisolone IV every 12 hours * Obtain flu swab; if it was positive started patient on Tamiflu * Follow up respiratory cultures * Keep off antibiotics if patient spikes fever ceftriaxone and azithromycin for community-acquired pneumonia * Stop singular * Stop Symbicort * Albuterol inhaler 3 mL every 4 as needed * TRC; peak flow * CT scan of the chest: Questionable history for sarcoidosis. Assessment for diffuse parenchymal lung disease. #2 newly diagnosed congestive heart failure * Obtain echo * Heart healthy diet * Daily weights * Follow-up with cardiology recommendation #3 DM: Insulin-dependent: As per medical team #4 history of hypothyroidism: Manage per medical team #5 HTN- #6 A. fib-supratherapeutic INR; off warfarin; restart warfarin after normalization of INR; targets between 2-3 SEBASTIÁN SCHROEDER MD 11/23/16 0956: Objective Vital Signs & I&O Last 24 Hrs of Vitals and I&O: Vital Signs Date Time Temp Pulse Resp B/P Pulse O2 O2 Flow FiO2 Ox Delivery Rate 11/23 0952 100 100/70 11/23 0802 97 Nasal 2.0L Cannula 11/23 0711 97.9 76 20 104/80 96 Nasal 2.0L Cannula 11/23 0102 98 Nasal 2.0L Cannula 11/22 2212 98.2 88 24 138/82 94 Room Air 11/22 1600 Nasal 2.0L Cannula 11/22 1530 96 Nasal 1.0L Cannula 11/22 1451 97.9 98 18 156/90 93 Room Air Intake & Output 11/23 1600 11/23 0800 11/23 0000 Intake Total 700 Output Total Balance 700 Intake, Oral 700 Patient 236 lb Weight Impression/Plan Impression/Plan Recommendations: Sebastián Cantu M.D. have examined this patient, reviewed available EMR data, personally reviewed images, discussed with resident/PA/CLEANER AND TRIMMER, discussed management plan with housestaff and nursing staff, discussed managment plan all of healthcare providers, discussed management plan with patient and/or family, agreed with resident/PA/CLEANER AND TRIMMER. The past history and parts of the chart have been autopopulated. Impression 65 year old woman with dyspnea * Dyspnea with a broad differential, however given elevated BNP, leg edema, cardiomegaly and improvement with lasix a cardiac cause is possible such as chf. * Patient also carries a history of asthma and likely has an element of an asthma exacerbation that we are treating * CT with evidence of sarcoidosis, however her presentation does not appear to be related to a sarcoidosis flair - given dx of sarcoid if any abnormality in ECHO, would discuss with cardiology to consider cardiac MRI to rule out sarcoid involvement as it can cause sudden cardiac - if indeed considered that would be an indication for implantable protective devices. Plan - CT chest without contrast - ECHO report pending, see above regarding cardiac sarcoid consideration - DC solumedrol, prednisone 40mg x 2, 30x2, 20x2, 10x2, then stop - cont trc/nebs - pt on advair at home, can resume as outpt - please ensure has scripts/inhaler at home DVT prophylaxis at all times
[2016-11-23 08:38] LABS: PT 27.2 SEC (9.4-12.5)
[2016-11-23 14:13] VITALS: BP 120/60
--- NOTE | 2016-11-23 14:40 | RADIOLOGY REPORT ---
EXAMINATION: XR CHEST CLINICAL INFORMATION: Shortness of breath. COMPARISON: 11/21/2016 TECHNIQUE: 2 views of the chest were obtained. FINDINGS: Patient has a large body habitus. There is wall calcification of the tracheobronchial tree -- a relatively common finding in elderly patients. Again noted is the large cardiac silhouette without interval development of pulmonary edema, focal consolidation or pleural effusion. The known hiatal hernia is suboptimally visualized. No acute skeletal abnormality. IMPRESSION: Cardiomegaly without acute pulmonary edema or other significant interval change compared to the chest radiograph of 11/21/2016.
--- NOTE | 2016-11-23 15:41 | ECHOCARDIOGRAM REPORT ---
JAYESH DELATORRE Age: 65 : 1950 Gender: F Exam Date: 11/22/2016 19:07 Exam Location: [place] Ht (in): 67 Wt (lb): 240 BSA: 2.32 BP: 132 / 70 Ordering Physician: JAMEE LESLIE MD Referring Physician: Nicholas Boyer MD Technologist: Rayne Hutchison [facility] Room Number: 229-02 Indications: ARRHYTHMIAS Rhythm: Atrial fibrillation Technical Quality: good FINDINGS Left Ventricle Normal left ventricular size with mild left ventricular hypertrophy. Normal systolic function with no obvious regional wall motion abnormalities. The ejection fraction is visually estimated at 60%. Right Ventricle The right ventricle is normal in size and function. Right Atrium The right atrium is normal in size. Left Atrium The left atrium is markedly enlarged. The interatrial septum is intact. Mitral Valve The mitral valve is normal in structure and function. There is trace to mild mitral regurgitation. Aortic Valve Structurally normal aortic valve without significant sclerosis or stenosis. There is no aortic regurgitation. Tricuspid Valve The tricuspid valve is normal in structure and function. There is mild tricuspid regurgitation. Pulmonary artery systolic pressure is normal. Pulmonic Valve Structurally normal pulmonic valve. There is trace pulmonic regurgitation. Pericardium Normal pericardium with trace effusion. No pleural effusion. Great Vessels Normal aortic root dimension. The aortic arch and great vessels are well seen and are normal. CONCLUSIONS 1. Normal EF of 70%. 2. Mild left ventricular hypertrophy. 3. Severe left atrial enlargment. 4. Trace to mild mitral regurgitation. 5. Mild tricuspid regurgitation. 6. Trace pulmonic regurgitation. 7. Trace pericardial effusion. Deo Armando M.D. (Electronically Signed) Final Date: 23 November 2016 15:41 MEASUREMENTS (Male / Female) Normal Values 2D ECHO LV Diastolic Diameter PLAX 4.8 cm 4.2 - 5.9 / 3.9 - 5.3 cm LV Systolic Diameter PLAX 3.2 cm 2.1 - 4.0 cm LV Fractional Shortening PLAX 33.3 % 25 - 46 % LV Ejection Fraction 2D Teich 61.9 % IVS Diastolic Thickness 1.2 cm LVPW Diastolic Thickness 1.2 cm LV Relative Wall Thickness 0.5 RV Internal Dim ED PLAX 3.1 cm 1.9 - 3.8 cm LVOT Diameter 1.9 cm Aortic Root Diameter 2.8 cm LA Systolic Diameter LX 4.9 cm 3.0 - 4.0 / 2.7 - 3.8 cm LA Volume 76.0 cm 18 - 58 / 22 - 52 cm Ascending Aorta Diameter 3.3 cm DOPPLER AV Peak Velocity 152.0 cm/s AV Peak Gradient 9.2 mmHg AV Mean Velocity 107.0 cm/s AV Mean Gradient 5.0 mmHg AV Velocity Time Integral 26.1 cm LVOT Peak Velocity 104.0 cm/s LVOT Peak Gradient 4.3 mmHg LVOT Mean Velocity 73.5 cm/s LVOT Mean Gradient 2.0 mmHg LVOT Velocity Time Integral 17.9 cm LVOT Stroke Volume 50.8 cm AV Area Cont Eq vti 1.9 cm AV Area Cont Eq pk 1.9 cm MV Peak Velocity 135.0 cm/s MV Peak Gradient 7.3 mmHg MV Mean Velocity 72.9 cm/s MV Mean Gradient 3.0 mmHg Mitral E Point Velocity 117.0 cm/s MV PHT Velocity 140.0 cm/s MV Deceleration [place] 627.0 cm/s MV Pressure Half Time 67.0 ms MV Area PHT 3.3 cm MV Deceleration Time 194.0 ms TR Peak Velocity 103.0 cm/s TR Peak Gradient 4.2 mmHg Right Atrial Pressure 5.0 mmHg Pulmonary Artery Systolic Pressu 9.2 mmHg Right Ventricular Systolic Press 9.2 mmHg PV Peak Velocity 102.0 cm/s PV Peak Gradient 4.2 mmHg PV Mean Velocity 71.1 cm/s PV Mean Gradient 2.0 mmHg PV Velocity Time Integral 23.1 cm LV E' Lateral Velocity 9.0 cm/s Mitral E to LV E' Lateral Ratio 12.9 LV E' Septal Velocity 6.4 cm/s Mitral E to LV E' Septal Ratio 18.3
--- NOTE | 2016-11-23 17:08 | PN- Cardiology ---
Subjective Subjective: Her breathing is about the same. Objective Vital Signs and I&Os Vital Signs Date Time Temp Pulse Resp B/P Pulse O2 O2 Flow FiO2 Ox Delivery Rate 11/23 1604 96 Nasal 1.0L Cannula 11/23 1413 98.3 99 20 120/60 94 Nasal 2.0L Cannula 11/23 0952 100 100/70 11/23 0802 97 Nasal 2.0L Cannula 11/23 0800 Nasal 2.0L Cannula 11/23 0711 97.9 76 20 104/80 96 Nasal 2.0L Cannula 11/23 0102 98 Nasal 2.0L Cannula 11/23 0000 Nasal 2.0L Cannula 11/22 2212 98.2 88 24 138/82 94 Room Air Intake & Output 11/23 1600 11/23 0800 11/23 0000 11/22 1600 11/22 0811/22 0000 Intake Total 300 500 700 480 100 700 Output Total Balance 300 500 700 480 100 700 Intake, IV 0 0 Intake, Oral 300 500 700 480 100 700 Number 0 0 Bowel Movements Patient 236 lb 240 lb Weight Physical Exam: Well-developed, overweight elderly, female in no acute distress with nasal oxygen in place. Vital signs: See above. HEENT: Normocephalic, atraumatic, EOMI, moist mucous membranes. Neck: No JVD, no bruits. Lungs: Decreased breath sounds occasional wheeze. Heart: S1, S2 (irregularly, irregular) with soft (grade 1/6) systolic murmur. No gallop or rub appreciated. PMI fifth ICS at MCL. Abdomen: Soft and nontender, positive bowel sounds. Extremities: Trace edema. Current Medications: Current Medications Sig/Pierce Start time Last Medication Dose Route Stop Time Status Admin Acetaminophen 650 MG Q6P PRN 11/21 1400 AC PO Acetaminophen/ 1 TAB Q6P PRN / 1400 AC Hydrocodone Bitart PO Albuterol Sulfate 3 ML EVERY 4 HRS/AWAKE 11/22 0900 AC 11/23 INH 1600 Albuterol Sulfate 3 ML Q6P PRN / 1630 AC 11/22 INH 0423 Albuterol Sulfate 2 PUF Q4-6 PRN PRN 11/21 1630 AC INH Alprazolam 1 MG TID PRN 11/21 1630 AC 11/23 PO 11/28 1629 0910 Aripiprazole 5 MG AT BEDTIME 11/22 2200 AC 11/22 PO 2209 Aripiprazole 2 MG AT BEDTIME 11/22 2200 AC 11/22 PO 2209 Aripiprazole 1 MG TID PRN 11/22 1600 AC PO Aspirin 325 MG DAILY 11/22 1000 AC 11/23 PO 0953 Atorvastatin Calcium 20 MG 1700 11/21 1700 AC 11/22 PO 1649 Diltiazem HCl 240 MG DAILY 11/21 1625 AC 11/23 PO 0952 Escitalopram Oxalate 20 MG DAILY 11/22 1000 AC 11/23 PO 0952 Furosemide 40 MG ONCE ONE 11/22 2230 DC 11/22 IV 11/22 2231 2254 Furosemide 40 MG DAILY 11/22 1000 AC 11/22 PO 0910 Guaifenesin 600 MG Q12 11/22 1315 AC 11/23 PO 0952 Insulin Aspart 0 TIDAC/HS 11/21 2146 AC 11/23 SC 1216 Insulin Detemir 15 UNITS BID 11/21 2200 AC 11/23 SC 1000 Levothyroxine Sodium 0.2 MG DAILY AC 11/22 0700 AC 11/23 PO 0611 Lidocaine 1 PAT DAILY 11/23 1401 AC EXT Lisinopril 2.5 MG DAILY 11/22 1000 AC 11/23 PO 0952 Methylprednisolone 40 MG Q12 11/22 2200 DC 11/22 IV 2209 Oxycodone/ 2 TAB Q6P PRN 11/21 1400 AC 11/23 Acetaminophen PO 0615 Prednisone 60 MG ONCE ONE 11/23 0830 DC 11/23 PO 11/23 0831 0953 Pregabalin 75 MG TID 11/21 1628 AC 11/23 PO 1008 Warfarin Sodium 4 MG COUMADIN 1700 ONE 11/23 1700 AC PO 11/23 1701 Results Last 48 Hrs of Labs/Mics: Laboratory Tests 11/23/16 0625: Anion Gap 12, Estimated GFR 41 L, BUN/Creatinine Ratio 29.2 H, PT 27.2 H, INR 2.62 H 11/22/16 0625: Anion Gap 9, Estimated GFR 56 L, BUN/Creatinine Ratio 25.0, PT 33.3 H, INR 3.21 H, CBC w Diff NO MAN DIFF REQ, RBC 3.87 L, MCV 85.2, MCH 28.1, RDW 15.3 H, MPV 9.3, Gran % 89.2 H, Lymphocytes % 9.3 L, Monocytes % 1.3 L, Eosinophils % 0.1, Basophils % 0.1, Absolute Granulocytes 9.6 H, Absolute Lymphocytes 1.0 L, Absolute Monocytes 0.1 L, Absolute Eosinophils 0, Absolute Basophils 0, PUBS MCHC 33.0 11/22/16 0041: Troponin I < 0.01 11/21/16 1807: Troponin I < 0.01 Microbiology 11/22 1830 NASOPHARYN: Influenza Virus A & B Rapid Smear - COMP Recent Imaging Studies: Echocardiogram (11/22/2016): * Normal EF of 70%. * Mild left ventricular hypertrophy. * Severe left atrial enlargment. * Trace to mild mitral regurgitation. * Mild tricuspid regurgitation. * Trace pulmonic regurgitation. * Trace pericardial effusion. Assessment/Plan Assessment/Plan Mrs. Barrera is a 65-year-old female with a history of obesity, steroid dependent asthma, thyroid nodule s/p radiation therapy on replacement, HTN, HLD, DM, chronic AF on warfarin who presented with progressive shortness of breath, bilateral wheezing, cough productive of greenish sputum, etc. with CXR findings suspicious for heart failure. No history of coronary, valvular, conduction disease or cardiomyopathy, but has had atrial fibrillation for approximately 15 years s/p multiple electrical cardioversions during that time, but has never been told she had heart failure. Mrs. Barrera also has a risk equivalent and multiple risk factors for coronary artery disease, so her heart failure could be on the basis of underlying ischemic heart disease. Unfortunately, inputs/outputs are inaccurate, however, her BUN/creatinine have increased and today's chest x-ray does not suggest any pulmonary edema. As such, would hold today's diuretic and recheck her BUN/creatinine in the a.m. Given suspicion of sarcoidosis, agree with cardiac MRI. Continue telemetry? Not applicable
[2016-11-23] MEDS ORDERED: PREDNISONE10 M2 PO (18:17)
[2016-11-23 22:49] VITALS: BP 138/80
[2016-11-24 06:30] VITALS: BP 108/64
[2016-11-24 08:32] LABS: PT 31.1 SEC (9.4-12.5)
--- NOTE | 2016-11-24 09:20 | PN- Housestaff ---
ALLIE BRAGA,ISCTIL 11/24/16 0919: Subjective Follow-up For: Asthma exacerbation CHF ? Subjective: Afebrile, WBCs within normal limits, saturating well on 1 L of oxygen. No acute overnight events reported. He reported terminate sent mild right side inferior anterior chest chest pain, which most likely because of the cough. She denies any other current complaints. Review of Systems Constitutional: Reports: see HPI. Objective Last 24 Hrs of Vital Signs/I&O Vital Signs Date Time Temp Pulse Resp B/P Pulse O2 O2 Flow FiO2 Ox Delivery Rate 11/24 1137 98 Nasal 1.0L Cannula 11/24 0951 85 130/80 11/24 08 97 Room Air 1.0L 11/24 0701 96 Nasal 2.0L Cannula 11/24 0630 98.8 97 20 108/64 95 Nasal Cannula 11/23 2339 94 11/23 2317 96 Nasal 1.0L Cannula 11/23 2249 98.2 105 20 138/80 96 11/23 1604 96 Nasal 1.0L Cannula 11/23 1600 Nasal 1.0L Cannula Intake & Output 11/24 1600 11/24 0800 11/24 0000 Intake Total 250 250 Output Total 900 1800 Balance -650 -1550 Intake, Oral 250 250 Output, Urine 900 1800 Patient 108.097 kg Weight Physical Exam General Appearance: Alert, Oriented X3, Cooperative, No Acute Distress Skin: No Rashes Cardiovascular: Regular Rate, Normal S1, Normal S2, No Murmurs Lungs: decrease air entry B/L with mild wheezing, inferior anterior chest mild tenderness Abdomen: Soft, No Tenderness Neurological: Normal Gait, Normal Speech Extremities: No Clubbing, No Cyanosis, No Edema Current Medications: Current Medications Sig/Pierce Start time Last Medication Dose Route Stop Time Status Admin Acetaminophen 650 MG Q6P PRN 11/21 1400 AC PO Acetaminophen/ 1 TAB Q6P PRN 11/21 1400 AC Hydrocodone Bitart PO Albuterol Sulfate 3 ML EVERY 4 HRS/AWAKE 11/22 0900 AC 11/24 INH 1134 Albuterol Sulfate 3 ML Q6P PRN 11/21 1630 AC 11/22 INH 0423 Albuterol Sulfate 2 PUF Q4-6 PRN PRN 11/21 1630 AC INH Alprazolam 1 MG TID PRN 11/21 1630 AC 11/23 PO 11/28 1629 2016 Aripiprazole 5 MG AT BEDTIME 11/22 2200 AC 11/23 PO 2231 Aripiprazole 2 MG AT BEDTIME 11/22 2200 AC 11/23 PO 2231 Aripiprazole 1 MG TID PRN 11/22 1600 AC PO Aspirin 325 MG DAILY 11/22 1000 AC 11/24 PO 0939 Atorvastatin Calcium 20 MG 1700 11/21 1700 AC 11/23 PO 1651 Diltiazem HCl 240 MG DAILY 11/21 1625 AC 11/24 PO 0939 Escitalopram Oxalate 20 MG DAILY 11/22 1000 AC 11/24 PO 0939 Furosemide 40 MG DAILY 11/22 1000 DC 11/22 PO 0910 Guaifenesin 600 MG Q12 11/22 1315 AC 11/24 PO 0939 Insulin Aspart 0 TIDAC/HS 11/21 2146 AC 11/24 SC 0802 Insulin Detemir 15 UNITS BID 11/21 2200 AC 11/24 SC 0938 Levothyroxine Sodium 0.2 MG DAILY AC 11/22 0700 AC 11/24 PO 0611 Lidocaine 1 PAT DAILY 11/23 1401 AC 11/24 EXT 0952 Lisinopril 2.5 MG DAILY 11/22 1000 AC 11/24 PO 0951 Oxycodone/ 2 TAB Q6P PRN 11/21 1400 AC 11/24 Acetaminophen PO 1000 Patient Medication 1 UNIT ONE NR 11/24 1400 Teaching ED 11/24 1430 Prednisone 40 MG DAILY 11/24 1000 AC 11/24 PO 0940 Pregabalin 75 MG TID 11/21 1628 AC 11/24 PO 0951 Warfarin Sodium 4 MG COUMADIN 1700 ONE 11/24 1700 AC PO 11/24 1701 Warfarin Sodium 4 MG COUMADIN 1700 ONE 11/23 1700 DC 11/23 PO 11/23 1701 1652 Last 24 Hrs of Lab/[place] Results Last 24 Hrs of Labs/Mics: Laboratory Tests 11/24/16 0706: Anion Gap 9, Estimated GFR 45 L, BUN/Creatinine Ratio 29.2 H, PT 31.1 H, INR 2.99 H Assessment/Plan Assessment: This is a 65 yo non smoking lady with asthma that is dependent on chronic use, lung collapse due to asthma attack about 25 yrs ago, rate controlled afib, and signinficant recent history of depression and anxiety worsened by recent life stressors, presents with signs and symptoms suggestive of asthma exacerbation. ( increased shortness of breath,cough with sputum, and chest tightness). S/p recentAzithromycin and medrol dose kimmy (PCN allergy) that was refractory. Vitals on admission were stable, with physical examination remarkable for b/l wheezes. CXR was unremarkable for infectious acute pathology, however indicated cardiomegaly amd some pulmonary congestion. However no JVD, LE extremity swelling, or increased swelling. EKG denoted afib rythm but with no acute ischemic changes. Impression * Asthma exacerbation * Elevated INR * Acute worsening of depression/Anxiety woth history of suicidal ideation * History of afib * History of HTN * History of Diabetes * Pulmonary nodule Plan * We will continue prednisone taper as ordered * Continue TRC/Nebs * pt on advair at home, can resume as outpt - please ensure has scripts/inhaler at home * will need PFTs as an outpatient * out of bed as tolerated, increase mobility * Continue rate controlled with cardizem * Will dose Coumadin 4 mg today as INR is at goal. * Possible new CHF?? As patient presents with progressively worsening shortness of breath even though most likely is from asthma due to her obvious bilateral expiratory or wheezes, however the elevated proBNP with CXR findings of cardiomegaly and possible pulmonary congestion is concerning for new diagnosis of CHF. cardiac MRI was ordered but cant be done here. * Outpatient follow-up on patient's pulmonary nodule. Cannot decisively rule out sarcoidosis based on the CT chest finding however hypersensitivity pneumonitis is also part of the differential which could be explained by patient's asthma condition. * Continue schedule ariprazole and when necessary as needed for psychosis * We'll also continue Ativan 3 times a day as needed for anxiety. * We'll continue escitalopram 20 mg for depression * Continue oxycodone for patient's chronic back pain, also add lidocaine patches for improved pain relief. Problem List: 1. Asthma exacerbation Pain Ratin Pain Location: see A&P Pain Goal: Remain pain free Pain Plan: see A&P Tomorrow's Labs & Rationales: cbc and bep Consulting Request: Consulting Specialty: Cardiology JOANN MIRAMONTES MD 11/24/16 1055: Attending MD Review Statement Attending Statement Attending MD Statement: examined this patient, discuss w/resident/PA/TILE AND MARBLE INSTALLER, agreed w/resident/PA/TILE AND MARBLE INSTALLER, reviewed EMR data (avail), discussed with nursing, amended to note Attending Assessment/Plan: Patient seen and examined. Lying in bed and not in acute distress. No issues overnight reported by nursing staff. She continues to complain of shortness of breath or wheezing. She complains of left sided chest pain which is reproducible and aggravated by coughingShe remains on oxygen supplementation. She reports anxiety due to the recent of her son after being discharged from hospital following an asthma attack. On examination she has diffuse wheezing bilaterally. She has no jugular venous distention. She has trace peripheral edema. Recommendations: -Continue bronchodilator therapy. Continue oral steroid therapy. -Taper off oxygen supplementation as tolerated. -Her diuretic therapy was placed on hold due to worsening renal function. Creatinine has improved today. Follow the cardiology service regarding timing of resumption of her diuretic therapy. -Chest pain is likely musculoskeletal. Pain management as needed.
--- NOTE | 2016-11-24 12:04 | PN- Pulmonary ---
Subjective HPI/Critical Care Issues: Patient doing well this morning she seen and examined. She is comfortable in bed however her dyspnea persists. Her echo was completed and shows a normal ejection fraction of 70% with mild LVH and severe left atrial enlargement with a trace pericardial effusion. Objective Current Medications: Current Medications Sig/Pierce Start time Last Medication Dose Route Stop Time Status Admin Acetaminophen 650 MG Q6P PRN 11/21 1400 AC PO Acetaminophen/ 1 TAB Q6P PRN / 1400 AC Hydrocodone Bitart PO Albuterol Sulfate 3 ML EVERY 4 HRS/AWAKE 11/22 0900 AC 11/24 INH 1134 Albuterol Sulfate 3 ML Q6P PRN 11/21 1630 AC 11/22 INH 0423 Albuterol Sulfate 2 PUF Q4-6 PRN PRN 11/21 1630 AC INH Alprazolam 1 MG TID PRN 11/21 1630 AC 11/23 PO 11/28 1629 2017 Aripiprazole 5 MG AT BEDTIME 11/22 2200 AC 11/23 PO 2231 Aripiprazole 2 MG AT BEDTIME 11/22 2200 AC 11/23 PO 2231 Aripiprazole 1 MG TID PRN 11/22 1600 AC PO Aspirin 325 MG DAILY 11/22 1000 AC 11/24 PO 0939 Atorvastatin Calcium 20 MG 1700 11/21 1700 AC 11/23 PO 1651 Diltiazem HCl 240 MG DAILY 11/21 1625 AC 11/24 PO 0939 Escitalopram Oxalate 20 MG DAILY 11/22 1000 AC 11/24 PO 0939 Furosemide 40 MG DAILY 11/22 1000 DC 11/22 PO 0910 Guaifenesin 600 MG Q12 11/22 1315 AC 11/24 PO 0939 Insulin Aspart 0 TIDAC/HS 11/21 2146 AC 11/24 SC 0802 Insulin Detemir 15 UNITS BID 11/21 2200 AC 11/24 SC 0938 Levothyroxine Sodium 0.2 MG DAILY AC 11/22 0700 AC 11/24 PO 0611 Lidocaine 1 PAT DAILY 11/23 1401 AC 11/24 EXT 0952 Lisinopril 2.5 MG DAILY 11/22 1000 AC 11/24 PO 0951 Oxycodone/ 2 TAB Q6P PRN 11/21 1400 AC 11/24 Acetaminophen PO 1000 Prednisone 40 MG DAILY 11/24 1000 AC 11/24 PO 0940 Pregabalin 75 MG TID 11/21 1628 AC 11/24 PO 0951 Warfarin Sodium 4 MG COUMADIN 1700 ONE 11/23 1700 DC 11/23 PO 11/23 1701 1652 Vital Signs & I&O Last 24 Hrs of Vitals and I&O: Vital Signs Date Time Temp Pulse Resp B/P Pulse O2 O2 Flow FiO2 Ox Delivery Rate 11/24 1137 98 Nasal 1.0L Cannula 11/24 0951 85 130/80 11/24 0800 97 Room Air 1.0L 11/24 0701 96 Nasal 2.0L Cannula 11/24 0630 98.8 97 20 108/64 95 Nasal Cannula 11/23 2339 94 11/23 2317 96 Nasal 1.0L Cannula 11/23 2249 98.2 105 20 138/80 96 11/23 1604 96 Nasal 1.0L Cannula 11/23 1600 Nasal 1.0L Cannula 11/23 1413 98.3 99 20 120/60 94 Nasal 2.0L Cannula Intake & Output 11/24 1600 11/24 0800 11/24 0000 Intake Total 250 250 Output Total 900 1800 Balance -650 -1550 Intake, Oral 250 250 Output, Urine 900 1800 Patient 238 lb Weight Exam Other Physical Findings: Gen - alert and awake HEENT - NCAT CVS - S1, S2, faint murmur Lungs - diminished breath sounds with rare rhonchi Abdomen - soft, non-tender, bs+ Ext - no edema, no cyanosis Results Last 24 Hrs of Lab Results: Laboratory Tests 11/24/16 0706: Anion Gap 9, Estimated GFR 45 L, BUN/Creatinine Ratio 29.2 H, PT 31.1 H, INR 2.99 H Impression/Plan Impression/Plan Impression/Plan: Impression 65 year old woman with dyspnea * Dyspnea stable - likely component of reactive airway disease * CT with evidence of sarcoidosis, however her presentation does not appear to be related to a sarcoidosis flair Plan - prednisone taper as ordered - f/u cardiology - cont trc/nebs - pt on advair at home, can resume as outpt - please ensure has scripts/inhaler at home - will need PFTs as an outpatient - out of bed as tolerated, increase mobility DVT prophylaxis at all times
[2016-11-24 15:08] VITALS: BP 118/70
[2016-11-24 23:46] VITALS: BP 118/64
[2016-11-25 06:35] VITALS: BP 122/80
[2016-11-25 08:43] LABS: PT 37.7 SEC (9.4-12.5)
[2016-11-25 08:44] LABS: ABSOLUTE BASOPHIL COUNT 0 /CUMM (0.0-0.2); ABSOLUTE EOSINOPHIL COUNT 0 /CUMM (0.0-0.7); ABSOLUTE GRANULOCYTE CT 6.8 /CUMM (1.4-6.5); ABSOLUTE LYMPH COUNT 3.3 /CUMM (1.2-3.4); ABSOLUTE MONOCYTE COUNT 0.8 /CUMM (0.10-0.60); BASOPHIL % 0.1 % (0.0-2.0); EOSINOPHIL % 0.1 % (0-5); GRANULOCYTE % 62.4 % (42.2-75.2); MEAN CORPUSCULAR HGB 28.3 PG (27.0-31.0); MEAN CORPUSCULAR HGB CONC 32.8 G/DL (33.0-37.0); MEAN CORPUSCULAR VOLUME 86.3 FL (81.0-99.0); MEAN PLATELET VOLUME 9.2 FL (7.4-10.4); PLATELET COUNT 225 /CUMM (130-400); RBC DISTRIBUTION WIDTH 15.3 % (11.5-14.5); RED BLOOD CELL CT 3.94 /CUMM (4.20-5.40); WHITE BLOOD CELL COUNT 10.9 /CUMM (4.8-10.8)
--- NOTE | 2016-11-25 08:45 | PN- Housestaff ---
FLORINDA BRAGA,CHARLENE 11/25/16 0845: Subjective Follow-up For: Asthma Exacerbation Subjective: Patient is seen and examined at bedside. He does endorse interval improvement with her breathing and she is no longer on O2 supplementation. He however still reports feeling tired and feels that she is not stable to go home. She denies any increased shortness of breath, chest tightness, increased anxiety, chest pain, palpitation, fever, chills, nausea, vomiting, abdominal pain or dysuria. No acute overnight event reported by nursing staff. Review of Systems Constitutional: Reports: no symptoms. Objective Last 24 Hrs of Vital Signs/I&O Vital Signs Date Time Temp Pulse Resp B/P Pulse O2 O2 Flow FiO2 Ox Delivery Rate 11/25 1020 113 124/70 11/25 0817 94 Room Air Room Air 11/25 0800 Room Air 11/25 0635 98.1 76 16 122/80 95 Room Air 11/25 0000 97 Room Air 11/24 2346 98.1 94 20 118/64 97 Room Air 11/24 1600 98 Nasal 1.0L Cannula 11/24 1508 98.8 61 20 118/70 96 Intake & Output 11/25 1600 09 0800 11/25 0000 Intake Total 400 450 Output Total 1100 Balance -700 450 Intake, Oral 400 450 Output, Urine 1100 Patient 106.141 kg Weight Physical Exam General Appearance: Alert, Oriented X3, Cooperative Cardiovascular: Normal S1, Normal S2, No Murmurs, irregular rate Lungs: b/l wheezees improved compared to previous days Abdomen: Normal Bowel Sounds, Soft Assessment/Plan Assessment: This is a 65 yo non smoking lady with asthma that is dependent on chronic use, lung collapse due to asthma attack about 25 yrs ago, rate controlled afib, and signinficant recent history of depression and anxiety worsened by recent life stressors, presents with signs and symptoms suggestive of asthma exacerbation. ( increased shortness of breath,cough with sputum, and chest tightness). S/p recentAzithromycin and medrol dose kimmy (PCN allergy) that was refractory. Vitals on admission were stable, with physical examination remarkable for b/l wheezes. CXR was unremarkable for infectious acute pathology, however indicated cardiomegaly amd some pulmonary congestion. However no JVD, LE extremity swelling, or increased swelling. EKG denoted afib rythm but with no acute ischemic changes. Impression * Asthma exacerbation * Elevated INR * Acute worsening of depression/Anxiety woth history of suicidal ideation * History of afib * History of HTN * History of Diabetes * Pulmonary nodule Plan * We will continue prednisone taper, 40 mg today. * Continue TRC/Nebs * pt on advair at home, can resume as outpt - please ensure has scripts/inhaler at home * will need PFTs as an outpatient * out of bed as tolerated, increase mobility * Continue rate controlled with cardizem * Will dose Coumadin 4 mg today as INR is at goal. * Outpatient follow-up on patient's pulmonary nodule. Cannot decisively rule out sarcoidosis based on the CT chest finding however hypersensitivity pneumonitis is also part of the differential which could be explained by patient's asthma condition. Will refer patient for cardiac MRI on an outpatient basis * Continue schedule ariprazole and when necessary as needed for psychosis * We'll also continue Ativan 3 times a day as needed for anxiety. * We'll continue escitalopram 20 mg for depression * Continue oxycodone for patient's chronic back pain, also add lidocaine patches for improved pain relief. Problem List: 1. Asthma exacerbation Pain Ratin Pain Location: back pain (chronic) Pain Goal: Remain pain free Pain Plan: per pain pathway Tomorrow's Labs & Rationales: CBC bep Consulting Request: Consulting Specialty: Cardiology JOANN MIRAMONTES MD 11/25/16 1153: Attending MD Review Statement Attending Statement Attending MD Statement: examined this patient, discuss w/resident/PA/DISTANCE EDUCATION TEACHER, agreed w/resident/PA/DISTANCE EDUCATION TEACHER, reviewed EMR data (avail), discussed with nursing, amended to note Attending Assessment/Plan: Patient is doing well clinically today. She has been weaned off oxygen supplementation. She is ambulating freely around the room and not in any distress. She complains of mild productive cough. Denies any chest pain today. On auscultation she has better air entry today with reduced wheezing although still present. Her creatinine remained stable. Recommendations: -Follow-up with the cardiology service regarding resuming her diuretic therapy and further cardiac workup. -Discharge planning will begin following clearance from the pulmonary and cardiology service.
--- NOTE | 2016-11-25 12:04 | PN- Pulmonary ---
Subjective HPI/Critical Care Issues: Patient seen and examined. She appears to be doing much better sitting upright in bed and getting a nebulizer treatment. She has no nausea or vomiting or diarrhea no constipation no chest pain. Objective Current Medications: Current Medications Sig/Pierce Start time Last Medication Dose Route Stop Time Status Admin Acetaminophen 650 MG Q6P PRN / 1400 AC PO Acetaminophen/ 1 TAB Q6P PRN 11/21 1400 AC Hydrocodone Bitart PO Albuterol Sulfate 3 ML EVERY 4 HRS/AWAKE 11/22 0900 AC 11/25 INH 1132 Albuterol Sulfate 3 ML Q6P PRN 11/21 1630 AC 11/22 INH 0423 Albuterol Sulfate 2 PUF Q4-6 PRN PRN 11/21 1630 AC INH Alprazolam 1 MG TID PRN 11/21 1630 AC 11/25 PO 11/28 1629 1026 Aripiprazole 5 MG AT BEDTIME 11/22 2200 AC 11/24 PO 2141 Aripiprazole 2 MG AT BEDTIME 11/22 2200 AC 11/24 PO 2141 Aripiprazole 1 MG TID PRN 11/22 1600 AC PO Aspirin 325 MG DAILY 11/22 1000 AC 11/25 PO 1021 Atorvastatin Calcium 20 MG 1700 / 1700 AC 11/24 PO 1629 Diltiazem HCl 240 MG DAILY 11/21 1625 AC 11/25 PO 1020 Escitalopram Oxalate 20 MG DAILY 11/22 1000 AC 11/25 PO 1020 Guaifenesin 600 MG Q12 11/22 1315 AC 11/25 PO 1020 Insulin Aspart 0 TIDAC/HS 11/21 2146 AC 11/24 SC 2141 Insulin Detemir 15 UNITS BID 11/21 2200 AC 11/25 SC 1021 Levothyroxine Sodium 0.2 MG DAILY AC 11/22 0700 AC 11/25 PO 0558 Lidocaine 1 PAT DAILY 11/23 1401 AC 11/25 EXT 1021 Linaclotide 145 MCG DAILY 11/24 1445 AC 11/25 PO 1019 Lisinopril 2.5 MG DAILY 11/22 1000 AC 11/25 PO 1020 Oxycodone/ 2 TAB Q6P PRN 11/21 1400 AC 11/25 Acetaminophen PO 1027 Patient Medication 1 UNIT ONE NR 11/24 1500 SD Teaching ED 11/24 1530 Patient Medication 1 UNIT ONE NR 11/24 1400 DC Teaching ED 11/24 1430 Prednisone 40 MG DAILY 11/24 1000 AC 11/25 PO 1020 Pregabalin 75 MG TID 11/21 1628 AC 11/25 PO 1021 Warfarin Sodium 4 MG COUMADIN 1700 ONE 11/24 1700 DC PO 11/24 1701 Warfarin Sodium 2 MG COUMADIN 1700 ONE 11/24 1700 DC / PO 11/24 1701 1629 Vital Signs & I&O Last 24 Hrs of Vitals and I&O: Vital Signs Date Time Temp Pulse Resp B/P Pulse O2 O2 Flow FiO2 Ox Delivery Rate 11/25 1020 113 124/70 11/25 0817 94 Room Air Room Air 11/25 0800 Room Air 11/25 0635 98.1 76 16 122/80 95 Room Air 11/25 0000 97 Room Air 11/24 2346 98.1 94 20 118/64 97 Room Air 11/24 1600 98 Nasal 1.0L Cannula 11/24 1508 98.8 61 20 118/70 96 Intake & Output 11/25 1600 11/25 0800 11/25 0000 Intake Total 400 450 Output Total 1100 Balance -700 450 Intake, Oral 400 450 Output, Urine 1100 Patient 234 lb Weight Exam Other Physical Findings: Gen - alert and awake HEENT - NCAT CVS - S1, S2, faint murmur Lungs - diminished breath sounds with rare rhonchi Abdomen - soft, non-tender, bs+ Ext - no edema, no cyanosis Results Last 24 Hrs of Lab Results: Laboratory Tests 11/25/16 0630: Anion Gap 3 L, Estimated GFR 45 L, BUN/Creatinine Ratio 28.3 H, PT 37.7 H, INR 3.64 H, CBC w Diff NO MAN DIFF REQ, RBC 3.94 L, MCV 86.3, MCH 28.3, RDW 15.3 H, MPV 9.2, Gran % 62.4, Lymphocytes % 29.9, Monocytes % 7.5, Eosinophils % 0.1, Basophils % 0.1, Absolute Granulocytes 6.8 H, Absolute Lymphocytes 3.3, Absolute Monocytes 0.8 H, Absolute Eosinophils 0, Absolute Basophils 0, PUBS MCHC 32.8 L Impression/Plan Impression/Plan Impression/Plan: Impression 65 year old woman with dyspnea * Dyspnea stable - likely component of reactive airway disease * CT with evidence of sarcoidosis without acute illness * a.fib with severe atrial enlargement Plan - prednisone taper as ordered - f/u cardiology - cont trc/nebs - pt on advair at home, can resume as outpt - please ensure has scripts/inhaler at home - will need PFTs as an outpatient - out of bed as tolerated, increase mobility DVT prophylaxis at all times DC planning
[2016-11-25 14:14] VITALS: BP 126/72
[2016-11-25 23:19] VITALS: BP 120/60
[2016-11-26 06:50] VITALS: BP 140/70
[2016-11-26 08:33] LABS: ABSOLUTE BASOPHIL COUNT 0 /CUMM (0.0-0.2); ABSOLUTE EOSINOPHIL COUNT 0.1 /CUMM (0.0-0.7); ABSOLUTE GRANULOCYTE CT 6.1 /CUMM (1.4-6.5); ABSOLUTE LYMPH COUNT 3.3 /CUMM (1.2-3.4); ABSOLUTE MONOCYTE COUNT 0.7 /CUMM (0.10-0.60); BASOPHIL % 0.2 % (0.0-2.0); EOSINOPHIL % 0.5 % (0-5); GRANULOCYTE % 60.1 % (42.2-75.2); HEMATOCRIT 35.5 % (37-47); MEAN CORPUSCULAR HGB 28.1 PG (27.0-31.0); MEAN CORPUSCULAR HGB CONC 32.7 G/DL (33.0-37.0); MEAN PLATELET VOLUME 8.9 FL (7.4-10.4); PLATELET COUNT 243 /CUMM (130-400); RBC DISTRIBUTION WIDTH 15.2 % (11.5-14.5); RED BLOOD CELL CT 4.13 /CUMM (4.20-5.40); WHITE BLOOD CELL COUNT 10.2 /CUMM (4.8-10.8)
--- NOTE | 2016-11-26 08:44 | PN- Housestaff ---
FLORINDA BRAGA,CHARLENE 11/26/16 0844: Subjective Follow-up For: Asthma exacerbation Subjective: She is seen and examined while sitting comfortable at bedside. He reports interval improvement in her breathing and denies any chest tightness, chest pain , palpitation, fever, chills, nausea, vomiting, abdominal pain, increased anxiety or dysuria. No acute overnight event reported by nursing staff. Review of Systems Constitutional: Reports: no symptoms. Objective Last 24 Hrs of Vital Signs/I&O Vital Signs Date Time Temp Pulse Resp B/P Pulse O2 O2 Flow FiO2 Ox Delivery Rate 11/26 0852 110 114/70 11/26 0825 95 Room Air 11/26 0800 Room Air 11/26 0650 98.6 98 20 140/70 98 Room Air 11/25 2346 94 Room Air 11/25 2319 98.8 95 20 120/60 94 Room Air 11/25 1600 96 Room Air Intake & Output 11/26 1600 11/26 0800 11/26 0000 Intake Total 300 450 Output Total 600 400 Balance -600 -100 450 Intake, Oral 300 450 Output, Urine 600 400 Patient 109.004 kg Weight Physical Exam General Appearance: Alert, Oriented X3, Cooperative Cardiovascular: Regular Rate, Normal S1, Normal S2, No Murmurs Lungs: minimal wheezes, significantly better compared to previous days Abdomen: Normal Bowel Sounds, Soft, No Tenderness, No Hepatospenomegaly Neurological: Normal Tone, Sensation Intact Extremities: Normal Pulses, No Tenderness/Swelling Assessment/Plan Assessment: This is a 65 yo non smoking lady with asthma that is dependent on chronic use, lung collapse due to asthma attack about 25 yrs ago, rate controlled afib, and signinficant recent history of depression and anxiety worsened by recent life stressors, presents with signs and symptoms suggestive of asthma exacerbation. ( increased shortness of breath,cough with sputum, and chest tightness). S/p recentAzithromycin and medrol dose kimmy (PCN allergy) that was refractory. Vitals on admission were stable, with physical examination remarkable for b/l wheezes. CXR was unremarkable for infectious acute pathology, however indicated cardiomegaly amd some pulmonary congestion. However no JVD, LE extremity swelling, or increased swelling. EKG denoted afib rythm but with no acute ischemic changes. Impression * Asthma exacerbation * Elevated INR * Acute worsening of depression/Anxiety woth history of suicidal ideation * History of afib * History of HTN * History of Diabetes * Pulmonary nodule Plan * She is stable for discharge today with a prednisone taper and to continue her home prescribed 20 mg once taper is done and close follow-up with the primary care physician and software validation technician * Patient will continue with home Advair and albuterol as needed * will need PFTs as an outpatient * out of bed as tolerated, increase mobility * Continue rate controlled with cardizem * Supra therapeutic INR will not dose Coumadin however patient is given prescription to recheck INR tomorrow with results CCed to her primary care physician * Outpatient follow-up on patient's pulmonary nodule. Cannot decisively rule out sarcoidosis based on the CT chest finding however hypersensitivity pneumonitis is also part of the differential which could be explained by patient's asthma condition. Will refer patient for cardiac MRI on an outpatient basis * We'll continue escitalopram 20 mg for depression * Continue oxycodone for patient's chronic back pain Problem List: 1. Asthma exacerbation Pain Ratin Pain Location: Lower back Pain Goal: Remain pain free Pain Plan: per pain pathway Tomorrow's Labs & Rationales: none-discharge Consulting Request: Consulting Specialty: Cardiology JOANNA ELIZABETH 11/26/16 1122: Attending MD Review Statement Attending Statement Attending MD Statement: examined this patient, discuss w/resident/PA/BOOT LINER MAKER, agreed w/resident/PA/BOOT LINER MAKER, discussed with family, reviewed EMR data (avail), discussed with nursing, discussed with case mgmt, reviewed images Attending Assessment/Plan: 65 o/f with pmh of DM, Afib on a/c s/p ablation in past, dyslipidemia, asthma h/ o intubation 25 years ago, ckd stage 2, h/o lung collapse years ago comes with shortness of breath and chest tightness for 2 weeks with sputum production. 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 Patient is on advair at home, chronic prednisone therapy 15 mg, allergic to pencillin, o/e decreased breath sounds b/l wheezes+. no pedal swelling, no JVD appreciated, irregualr rate and rythm, Labs absent leukocytosis, anemia, cr stabilsing, INR elevated, BNP 2320, chest xray cardiomegaly with no acute pulmonary edema. EKG with afib no st t wave changes. Patient is being admitted for asthma exacerbation, ?new onset chf r/o ACS. negative serial cardiac enzymes, echo EF 70% , NST as o/p for evaluate ischmeia as per cards, i/v steorids taper, inhaled bronchodilators, CT chest with difffuse interstitial inflitrates possible sarcoidosis vs hypersensitivity penumonitis. f/u cardiology and pulmonary as o/p. lasix use as per cardiology ( home dose 40mg daily), basal insulin and RISS titrate as needed. on hold coumadin INR monitor, resume home meds, Patient discharged on steroid taper and to see PCP in 1 week. to see PCP in 1 week.
[2016-11-26 08:52] VITALS: BP 114/70
[2016-11-26] MEDS ORDERED: PREDNISONE10 M2 PO ×2 (09:49→10:40)
--- NOTE | 2016-11-26 09:54 | PN- Pulmonary ---
Subjective HPI/Critical Care Issues: Patient seen and examined. She appears to be doing significantly better. Discharge planning is in effect. Shortness of breath is resolving to baseline and she has no chest pain or nausea no vomiting no diarrhea no constipation or headaches. Objective Current Medications: Current Medications Sig/Pierce Start time Last Medication Dose Route Stop Time Status Admin Acetaminophen 650 MG Q6P PRN 11/21 1400 AC PO Acetaminophen/ 1 TAB Q6P PRN 11/21 1400 AC Hydrocodone Bitart PO Albuterol Sulfate 3 ML EVERY 4 HRS/AWAKE 11/22 0900 AC 11/26 INH 0825 Albuterol Sulfate 3 ML Q6P PRN 11/21 1630 AC 11/22 INH 0423 Albuterol Sulfate 2 PUF Q4-6 PRN PRN 11/21 1630 AC INH Alprazolam 1 MG TID PRN 11/21 1630 AC 11/25 PO 11/28 1629 2107 Aripiprazole 5 MG AT BEDTIME 11/22 2200 AC 11/25 PO 2059 Aripiprazole 2 MG AT BEDTIME 11/22 2200 AC 11/25 PO 2059 Aripiprazole 1 MG TID PRN 11/22 1600 AC PO Aspirin 325 MG DAILY 11/22 1000 AC 11/26 PO 0853 Atorvastatin Calcium 20 MG 1700 11/21 1700 AC 11/25 PO 1730 Diltiazem HCl 240 MG DAILY 11/21 1625 AC 11/26 PO 0852 Escitalopram Oxalate 20 MG DAILY 11/22 1000 AC 11/26 PO 0852 Guaifenesin 600 MG Q12 11/22 1315 AC 11/26 PO 0852 Insulin Aspart 0 TIDAC/HS 11/21 2146 AC 11/25 SC 2100 Insulin Detemir 15 UNITS BID 11/21 2200 AC 11/26 SC 0853 Levothyroxine Sodium 0.2 MG DAILY AC 11/22 0700 AC 11/26 PO 0549 Lidocaine 1 PAT DAILY 11/23 1401 AC 11/26 EXT 0853 Linaclotide 145 MCG DAILY 11/24 1445 AC 11/26 PO 0851 Lisinopril 2.5 MG DAILY 11/22 1000 AC 11/26 PO 0852 Oxycodone/ 2 TAB Q6P PRN 11/21 1400 AC 11/26 Acetaminophen PO 0853 Prednisone 30 MG DAILY 11/26 1000 AC 11/26 PO 0852 Prednisone 40 MG DAILY 11/24 1000 DC 11/25 PO 1020 Pregabalin 75 MG TID 11/21 1628 AC 11/26 PO 0851 Vital Signs & I&O Last 24 Hrs of Vitals and I&O: Vital Signs Date Time Temp Pulse Resp B/P Pulse O2 O2 Flow FiO2 Ox Delivery Rate 11/26 0852 110 114/70 11/26 0650 98.6 98 20 140/70 98 Room Air 11/25 2346 94 Room Air 11/25 2319 98.8 95 20 120/60 94 Room Air 11/25 1600 96 Room Air 11/25 1414 98.7 96 20 126/72 97 11/25 1020 113 124/70 Intake & Output 11/26 1600 11/26 0800 11/26 0000 Intake Total 300 450 Output Total 600 400 Balance -600 -100 450 Intake, Oral 300 450 Output, Urine 600 400 Patient 240 lb Weight Exam Other Physical Findings: Gen - alert and awake HEENT - NCAT CVS - S1, S2, faint murmur Lungs - diminished breath sounds with rare rhonchi Abdomen - soft, non-tender, bs+ Ext - no edema, no cyanosis Results Last 24 Hrs of Lab Results: Laboratory Tests 11/26/16 0703: Anion Gap 8, Estimated GFR 50 L, BUN/Creatinine Ratio 26.4 H, CBC w Diff NO MAN DIFF REQ, RBC 4.13 L, MCV 86.0, MCH 28.1, RDW 15.2 H, MPV 8.9, Gran % 60.1 , Lymphocytes % 32.2, Monocytes % 7.0, Eosinophils % 0.5, Basophils % 0.2, Absolute Granulocytes 6.1, Absolute Lymphocytes 3.3, Absolute Monocytes 0.7 H, Absolute Eosinophils 0.1, Absolute Basophils 0, PUBS MCHC 32.7 L Impression/Plan Impression/Plan Impression/Plan: Impression 65 year old woman with dyspnea * Dyspnea stable - likely component of reactive airway disease * CT with evidence of sarcoidosis without acute illness * a.fib with severe atrial enlargement Plan - prednisone taper as ordered - f/u cardiology - cont trc/nebs - pt on advair at home, can resume as outpt - please ensure has scripts/inhaler at home - will need PFTs as an outpatient - out of bed as tolerated, increase mobility DVT prophylaxis at all times DC planning - stable for dc from pulmonary perspective
--- NOTE | 2016-11-26 09:56 | Patient Discharge Instructions ---
Discharge Instructions General Discharge Information You were seen/treated for: ASTHMA ATTACK Special Instructions: Your INR is high, please do not take your coumadin until you check your INR again tomorro (11/27) and and then talk to your primary care physcian Please take your prednisone taper and then start taking you regular 20 mg prednisone daily Please discuss with your primary care regarding when tapering yur steroids Please follow up wtih Dr Boyer to schedule for stress test Please follow up with Dr Rodriguez regarding your Asthma management and to schedule pulmonary function test and Cardiac MRI Please continue to follow up with intensive outpatient psych Acute Coronary Syndrome Inclusion Criteria At DC or during hospital stay patient has or had the following: ACS DIAGNOSIS No Discharge Core Measures Meds if any: Prescribed or Continued at Discharge Meds if any: NOT Prescribed or Continued at Discharge Congestive Heart Failure Inclusion Criteria At DC or during hospital stay patient has or had the following: CHF DIAGNOSIS No Discharge Core Measures Meds if any: Prescribed or Continued at Discharge Meds if any: NOT Prescribed or Continued at Discharge Cerebrovascular accident Inclusion Criteria At DC or during hospital stay patient has or had the following: CVA/TIA Diagnosis No Discharge Core Measures Meds if any: Prescribed or Continued at Discharge Meds if any: NOT Prescribed or Continued at Discharge Venous thromboembolism Inclusion Criteria VTE Diagnosis No VTE Type NONE VTE Confirmed by (Test) NONE Discharge Core Measures - Per Current guidelines, there needs to be overlap - treatment for the first 5 days of Warfarin therapy. - If discharged on Warfarin prior to 5 days of - overlap therapy, the patient will need to be - assessed for post discharge needs including - *Post discharge parental anticoagulation - *Warfarin and/or parental anticoagulation education - *Follow up date to check INR post discharge At least 5 days overlap therapy as Inpatient No Meds if any: Prescribed or Continued at Discharge Note: Overlap Therapy is Warfarin and Anticoagulant Meds if any: NOT Prescribed or Continued at Discharge
[2016-11-26] MEDS ORDERED: PERCOCET 5-3251 EACH PO ×2 (11:36→11:53)
--- NOTE | 2016-11-26 17:00 | Discharge Summary ---
Visit Information Visit Dates Admission Date: 11/21/16 Discharge Date: 11/26/16 Hospital Course Course Attending Physician: JOANNA ELIZABETH MD Primary Care Physician: BROOKLYNN WALLACE Consulting Request: Consulting Specialty: Cardiology Hospital Course: This is a 65-year-old female with a history of obesity, steroid dependent asthma, thyroid nodule s/p radiation therapy on replacement, HTN, HLD, DM, chronic AF on warfarin who presented with progressive shortness of breath, bilateral wheezing, cough productive of greenish sputum. Patient was given azithromycin/steroid by PCP but symptoms did not improve much, exertional shortness of breath were present, used inhaler more than often. Patient is on advair at home, chronic prednisone therapy 15 mg. Vital Signs Date Time Temp Pulse Resp B/P Pulse O2 O2 Flow FiO2 Ox Delivery Rate 11/21 2249 98.1 99 19 132/80 96 Nasal Cannula / 1706 98.2 97 19 126/80 95 Nasal Cannula / 1622 98.1 98 19 121/74 87 Nasal 2.0L Cannula 11/21 1600 Nasal 2.0L Cannula 11/21 1320 88 18 113/63 94 Room Air 04 1152 94 Room Air 11/21 1043 98.6 95 20 150/76 96 Room Air Physical Exam General Appearance Alert, Oriented X3, Cooperative, appear depressed and tearful Skin No Significant Lesion HEENT Atraumatic, PERRLA, EOMI, Mucous Membr. moist/pink Neck +2 Carotid Pulse wo Bruit Lymphatic Cervical nl Cardiovascular Normal S1, Normal S2, irregular rate Lungs decreased breath sounds with some b/l wheezes Abdomen Normal Bowel Sounds, Soft Neurological Normal Speech, Strength at 5/5 X4 Ext, Normal Tone Extremities No Clubbing, No Cyanosis, No Edema, No Tenderness/Swelling Vascular Pulses Symmetrical Patient was admitted to general medicine for 6 days. The following issues were addressed during hospital stay: #Dyspnea Most likely secondary to reactive airway disease, cofounded by worsening anxiety. Acute coronary syndrome was ruled out by serial troponins and EKG, echo was not remarkable for any decompensated EF or valvular pathology. CHF was on of the initial working diagnosis however with a negative echo and no other clinical finding suggests edema, and JVD, it was felt that patient does not present in an decompensated CHF status. Cardiology was on board and recommended outpatient stress test. Initial CT imaging was also suggestive of possible sarcoidosis ,however patient did not have any clinical signs. Patient received O2 supplementation to keep sats above 88%, and albuterol nebulizing therapy. Pts dyspnea progressively improved during subsequent days. #Asthma exacerbation Patient recently finished antibiotic course therefore acute exacerbation was thought to be secondary to acute respiratory infection. Patient was started on Solu-Medrol and then transition to oral prednisone. Albuterol and ipratropium nebulizer as needed was administered. High mucus production, patient was given Mucinex. #Supra therapeutic INR She presented with a INR of 4. Coumadin was held initially and restarted when it was below 3. On discharge date patient was given a prescription to check INR with results ccd to her primary care physician. #Psychiatric illness Patient had been recently admitted to psych unit for suicidal ideation (life stressor of loosing his two kids). During this admission, patient communicated vaguely about how depressed she was after losing her son and thought about maybe taking her life. Patient was placed with a one-to-one sitter for suicide precaution, however she did clarify that she did not have any suicidal ideation. Psych was consulted and after extensive evaluation patient was not deemed to be suicidal or homicidal. Her home medication of aripiprazole, citalopram and all present was restarted. She was also given instructions on discharge to return to [facility] for follow-ups. Allergies: Coded Allergies: amoxicillin (From AUGMENTIN) (Severe, throat chocking 09/12/16) clavulanic acid (From AUGMENTIN) (Severe, throat chocking 09/12/16) Disposition Summary Disposition Principal Diagnosis: COPD exacerbation Additional Diagnosis: Acute on chronic Anxiety Discharge Disposition: home or self care Discharge Instructions General Discharge Information Code Status: Full Code Patient's Diet: regular Patient's Activity: As tolerated Follow-Up Instructions/Appts: Pt to f/u with her PCP within 1 week Pt is to f/u with his Pulmunologist at [place] within 1 week Medications at Discharge Discharge Medications: Continue taking these medications: Diltiazem HCl (Diltiazem 24HR ER) 240 MG CAP.ER.24H 1 Capsule ORAL DAILY Comments: Last Taken: 11/26/16 Time: 9AM Pregabalin (Lyrica) 75 MG CAPSULE 1 Capsule ORAL THREE TIMES DAILY Comments: Last Taken: 11/26/16 Time: 9AM Lisinopril (Lisinopril) 2.5 MG TABLET 1 Tablet ORAL DAILY Comments: Last Taken: 11/26/16 Time: 9AM Albuterol Sulfate (Proair Hfa) 90 MCG HFA.AER.AD 2 Puff Inhale through mouth EVERY 4-6 HOURS NEEDED as needed for ASTHMA Fluticasone/Salmeterol (Advair 500-50 Diskus) 500 MCG-50 MCG/DOSE BLST.W.DEV 1 Puff Inhale through mouth TWICE DAILY Comments: NOT GIVEN WHILE IN HOSPITAL Linaclotide (Linzess) 145 MCG CAPSULE 1 Capsule ORAL DAILY Comments: Last Taken: 11/26/16 Time: 9AM Alendronate Sodium (Fosamax) 70 MG TABLET 1 Tablet ORAL Once a Week Instructions: in the morning, at least 30 minutes before the first food, beverage, or medication of the day Comments: NOT GIVEN WHILE IN HOSPITAL Simvastatin (Zocor*) 20 MG TABLET 1 Tablet ORAL Every night Comments: Last Taken: 11/26/16 Time: 5PM Ergocalciferol (Vitamin D2) (Vitamin D2) 50,000 UNIT CAPSULE 1 Capsule ORAL Once a Week Comments: NOT GIVEN WHILE IN HOSPITAL Furosemide (Lasix) 40 MG TABLET 1 Tablet ORAL DAILY Comments: Last Taken:09/17/16 Time:0945 Prednisone (Prednisone) 20 MG TABLET 1 Tablet ORAL DAILY Comments: Last Taken: 11/26/16 Time: 9AM 30MG DOSE GIVEN 11/26 Montelukast Sodium (Singulair) 10 MG TABLET 1 Tablet ORAL DAILY Comments: NOT GIVEN WHILE IN HOSPITAL Pantoprazole Sodium (Protonix) 40 MG TABLET.DR 1 Tablet ORAL DAILY Comments: NOT GIVEN WHILE IN HOSPITAL Insulin Aspart, Recombinant (Novolog Flexpen) 100 UNIT/ML INSULN.PEN 6 Units SUB-Q QAC Comments: Last Taken: 11/26/16 Time: 12PM SLIDING SCALE USED WHILE IN HOSPITAL Insulin Glargine,Hum.rec.anlog (Lantus Solostar) 100 UNIT/ML (3 ML) INSULN.PEN 25 Unit Inject into fatty tissue DAILY @8 AM Comments: NOT GIVEN WHILE IN HOSPITAL Iron,Carbonyl (Feosol) (Unknown Strength) TABLET 325 Milligram ORAL DAILY Comments: NOT GIVEN WHILE IN HOSPITAL Insulin Glargine,Hum.rec.anlog (Lantus Solostar) 100 UNIT/ML (3 ML) INSULN.PEN 15 Units Inject into fatty tissue Every night Comments: Last Taken: 11/26/16 Time: 9AM LEVEMIR GIVEN WHILE IN HOSPITAL Escitalopram Oxalate (Lexapro) 20 MG TABLET 20 Milligram ORAL DAILY Qty = 14 Comments: Last Taken: 11/26/16 Time: 9AM Alprazolam (Xanax) 1 MG TABLET 1 Milligram ORAL THREE TIMES A DAY NEEDED Qty = 42 Instructions: TAKE UP TO 3 TIMES DAILY NEEDED FOR ANXIETY. Comments: Last Taken: 11/25/16 Time: 9PM Glipizide (Glipizide ER) 10 MG TAB.ER.24 1 Tablet ORAL DAILY Qty = 90 Comments: INSULIN GIVEN WHILE IN HOSPITAL Levothyroxine Sodium (Synthroid) 200 MCG TABLET 1 Tablet ORAL Once a Week Comments: Last Taken: 11/26/16 Time: 6AM Levothyroxine Sodium (Levothyroxine Sodium) 200 MCG TABLET 1 Tablet ORAL DAILY BEFORE BREAKFAST Albuterol Sulfate (Albuterol Sulfate) 2.5 MG/3 ML (0.083 %) VIAL.NEB 1 Vial Inhale Solution EVERY SIX HOURS NEEDED as needed for SHORTNESS OF BREATH Comments: Last Taken: 11/26/16 Time: 12PM Warfarin Sodium (Coumadin) 4 MG TABLET 1 Tablet ORAL SuWeFr Warfarin Sodium (Coumadin) 2 MG TABLET 1 Tablet ORAL MoTuThSa Comments: Last Taken: 11/24/16 Time: 5PM Aspirin (Aspirin*) 325 MG TABLET 1 Tablet ORAL DAILY Comments: Last Taken: 11/26/16 Time: 10AM Aripiprazole (Abilify) 2 MG TABLET 1 Tablet ORAL AT BEDTIME Comments: NOT GIVEN WHILE IN HOSPITAL Aripiprazole (Abilify) 5 MG TABLET 1 Tablet ORAL AT BEDTIME Comments: Last Taken: 11/25/16 Time: 9PM Start taking the following new medications: Prednisone (Prednisone) 10 MG TABLET 1 Tablet ORAL SEE INSTRUCTIONS Qty = 6 No Refills Instructions: TAKE 3 TABLETS FOR 2 DAYS THEN CONTINUE YOUR REGULAR 20MG DAILY Comments: Last Taken: 11/26/16 Time: 9AM Oxycodone HCl/Acetaminophen (Percocet 5-325 MG Tablet) 5 MG-325 MG TABLET 1-2 Tablet ORAL EVERY SIX HOURS NEEDED as needed for PAIN SCALE 7-10 ( SEVERE) Qty = 20 No Refills Comments: Last Taken: 11/26/16 Time: 9AM Copies To: JOANNA ELIZABETH MD
== END 2016-11-26 14:32 | disposition home health service (06) | DRG 141 ==
LOC: ENRESERVTM → ENRESERVDT → ERH 10:35 → ERHI 13:32 → ENPENDDIS 13:32 → 2NA 13:32
PROVIDERS: Emergency Medicine; Internal Medicine; Student in an Organized Health Care Education/Training Program; ADMIT Internal Medicine
DX: J45.901 Unspecified asthma with (acute) exacerbation (principal); F33.3 Major depressive disorder, recurrent, severe with psychotic symptoms; E11.22 Type 2 diabetes mellitus with diabetic chronic kidney disease; I48.2 Chronic atrial fibrillation; E78.5 Hyperlipidemia, unspecified; Z79.01 Long term (current) use of anticoagulants; F41.9 Anxiety disorder, unspecified; E03.9 Hypothyroidism, unspecified; K21.9 Gastro-esophageal reflux disease without esophagitis; Z79.4 Long term (current) use of insulin; R91.1 Solitary pulmonary nodule; D86.9 Sarcoidosis, unspecified; N18.2 Chronic kidney disease, stage 2 (mild); E66.9 Obesity, unspecified; Z68.37 Body mass index [BMI] 37.0-37.9, adult; I12.9 Hypertensive chronic kidney disease with stage 1 through stage 4 chronic kidney disease, or unspecified chronic kidney disease
CPT/HCPCS: 2NASP; 87184; 82436; 87070; 87071; 87147; 87804; 87804-59; 93005; 93010; 93306; 96374; 99232; J1940; J2920; J2930; J3490; J7512